=== PATIENT | male | born 1940 | race African-American/Black ===

== ENCOUNTER 2018-05-18 09:15 | Emergency (ER) | payer OTHER, MEDICARE ==
--- NOTE | 2018-05-18 10:46 | CT ---
HEAD CT NONCONTRAST: CLINICAL HISTORY: Post traumatic head injury related to fall with pain. FINDINGS: There is prominence of the ventricular system with moderate periventricular white matter hypoattenuat ion. There is no intracranial hemorrhage, mass effect, or midline shift. The calvarium is intact. There is no fluid level of the imaged paranasal sinuses. IMPRESSION: 1. No acute intracranial hemorrhage or mass effect. 2. There is prominence of the ventricular system with periventricular white matter hypoattenuation. This could relate to entities, such as normal pressure hydrocephalus with transependymal cerebrospin al fluid migration versus microvascular ischemic disease. Recommend clinical correlation in this regard. POS: [facility]
--- NOTE | 2018-05-18 10:49 | CT ---
NONCONTRAST CT CERVICAL SPINE: Date: 05-18-18 History: Mechanical fall in bathroom. Hurts all over. Trauma. Patient hit head on floor. Technique: Contiguous axial CT images are obtained through the cervical spine from the skull base to the T2-3 level. Sagittal and coronal reformatted images are provided. FINDINGS: There is straightening of the normal cervical lordotic curvature which may related to muscle spasm or positioning. Multilevel prominent bridging anterior osteophytes are present throughout the cervical spine. Scattered degenerative changes are also seen within the cervical spine. The vertebral body heights are within normal limits. There is no evidence of a fracture or subluxatio n. The prevertebral soft tissues are within normal limits. Visualized lung apices are clear. Vascular calcifications are seen in the carotid arteries. A 1.1 cm hypodense lesion is seen within the right hepatic lobe. IMPRESSION: 1. Multilevel degenerative changes throughout the cervical spine with prominent bridging anterior ost eophytes noted. There is fusion of the C5 and C6 vertebral bodies. 2. No fracture or subluxation involving the cervical spine. 3. Hypodense nodule right lobe of the thyroid gland which cannot be fully characterized on this exam. Non-emergent thyroid ultrasound is suggested for further evaluation. POS: [facility]
[2018-05-18] MEDS ORDERED: Adacel (T-DAP) 0.5 ML VIAL ONE (10:53)
== END 2018-05-18 11:12 | disposition home or self-care (01) ==
LOC: ERS 09:15
DX: S09.90XA Unspecified injury of head, initial encounter (principal); S90.812A Abrasion, left foot, initial encounter; E11.9 Type 2 diabetes mellitus without complications; I10 Essential (primary) hypertension; G30.9 Alzheimer's disease, unspecified; F02.80 Dementia in other diseases classified elsewhere, unspecified severity, without behavioral disturbance, psychotic disturbance, mood disturbance, and anxiety; Z79.82 Long term (current) use of aspirin; Z79.899 Other long term (current) drug therapy; W19.XXXA Unspecified fall, initial encounter
CPT/HCPCS: 70450; 72125; 90471; 90715

== ENCOUNTER 2018-05-26 10:16 | Inpatient (IN) | payer MEDICARE, OTHER ==
[2018-05-26 10:56] LABS: #Basophils 0.1 thou/uL (0.0-0.2); #Lymphocytes 2.1 thou/uL (1.20-3.40); #Monocytes 1.2 thou/uL (0.11-0.59); #Neutrophils 6.1 thou/uL (1.40-6.50); %Basophils 0.7 % (0.0-1.0); %Eosinophils 0.3 % (0.0-10.0); %Lymphocytes 21.8 % (21.0-51.0); %Monocytes 12.9 % (0.0-10.0); %Neutrophils 64.3 % (42.0-75.0); Hemoglobin 9.1 g/dL (14.0-18.0); Mean Corpuscular HGB CONC 31.8 g/dL (32.0-36.0); Mean Corpuscular Hemoglobin 27.1 pg (27.0-31.0); Mean Corpuscular Volume 85.1 fL (78.0-98.0); Mean Platelet Volume 10.2 fL (7.4-10.4); Platelet Count 124 thou/uL (130-400); RBC Distribution Width 13.5 % (11.5-14.5); Red Blood Cell (RBC) Count 3.37 mill/uL (4.70-6.10); White Blood Cell (WBC) Count 9.4 thou/uL (4.8-10.8)
[2018-05-26 11:17] LABS: ALT (SGPT) 24 U/L (8-55); AST (SGOT) 25 U/L (5-34); Alkaline Phosphatase 55 U/L (40-150); Anion Gap 18 mmol/L (10-20); BUN (Urea Nitrogen) 93 mg/dL (8.4-25.7); Bilirubin, Total 0.6 mg/dL (0.2-1.2); CK (CPK) 399 U/L (30-200); Calc. Creatinine Clearance 0 mL/min (70-130); Calcium 9.5 mg/dL (7.8-10.44); Carbon Dioxide 20 mmol/L (23-31); Chloride 116 mmol/L (98-107); Estimated GFR-MDRD 6; Globulin 4.3 g/dL (2.4-3.5); Glucose 142 mg/dL (83-110); Lipase 27 U/L (8-78); Potassium 4.8 mmol/L (3.5-5.1); Protein, Total 8.3 g/dL (5.8-8.1); Sodium 149 mmol/L (136-145)
[2018-05-26 11:22] LABS: CKMB 2.6 ng/mL (0-6.6); Troponin I 0.037 ng/mL (< 0.028)
--- NOTE | 2018-05-26 11:41 | RAD ---
CHEST 1 VIEW: Date: 05/26/18 HISTORY: Altered mental status. Dyspnea. FINDINGS: Cardiac silhouette and pulmonary vasculature are unremarkable. Mediastinum is midline. No confluent a ir space consolidation or evidence of pneumothorax. Degenerative changes of the shoulders. IMPRESSION: No active cardiopulmonary abnormalities are demonstrated. POS: [facility]
--- NOTE | 2018-05-26 12:30 | CT ---
CT ABDOMEN WITHOUT CONTRAST CT PELVIS WITHOUT CONTRAST: Date: 05/26/18 HISTORY: Elevated creatinine. COMPARISON: None. TECHNIQUE: Abdomen and pelvic CT performed without contrast. Coronal reformatted images are submitted for interp retation. FINDINGS: ABDOMEN CT: Dependent atelectatic changes in the lung bases. Normal heart size. No pericardial effusion. The desc ending thoracic aorta and abdominal aorta have a normal caliber. No periaortic fat stranding. No gastrohepatic, retrocrural, or periportal lymphadenopathy. Unremarkable gallbladder. Limited evaluation of the solid organs by lack of IV contrast. Grossly, no solid organ abnormality. No mesenteric mass, lymphadenopathy, free air, or free fluid. Limited evaluation of the alimentary canal due to lack of oral contrast. Gastric mucosa, duodenum, an d multiple normal caliber small bowel loops are noted bilaterally. Ileocecal junction is normal. Appe ndix is not appreciated. No inflammation of cecal apex. Scattered fecal material in a nondistended, n ondilated colon. There is questionable mucosal thickening involving the distal rectum. There is bilateral severe obstructive uropathy without associated obstructing calculus. Both ureters are prominent throughout their entire course. There is irregular appearance at the base of the urinar y bladder. This irregular attenuation extends to and is difficult to separate from the prostate. Ther e is mucosal thickening at the floor of the urinary bladder, extending into the region of both ureter ovesical junctions. No obstructing calculi. There appear to be enlarged lymph nodes posterior and slightly to the left of the prostate gland. The largest of these presumed lymph nodes measures 1.9 x 1.3 cm. An additional smaller lymph node appear s to be present. There are no lytic or blastic lesions in the osseous structures. There appears to be complete fusion with irregularity involving the T10-T11 disc space. Evaluation is limited on this exam. There is poss ible pathologic lesion at the T11 vertebral body. IMPRESSION: 1. Severe bilateral obstructive uropathy (hydronephrosis and hydroureter). There is abnormal soft ti ssue attenuation of the base of the urinary bladder which may be due to a primary neoplastic process of the bladder. However, the adjacent prostate gland is indistinct. The possibility of an invasive pr ostatic process/malignancy cannot be excluded. There appear to be enlarged left hemipelvic lymph node s. 2. Irregular appearance of the T11 vertebral body. The possibility of a metastatic lesion in this re gion cannot be completely excluded. POS: [facility]
[2018-05-26] MEDS ORDERED: Ondansetron HCl/PF 4 MG/2 ML Vial ONE ×2 (12:48→14:28)
[2018-05-26 13:19] LABS: Bilirubin Negative (Negative); Blood, Urine Trace (Negative); Clarity CLEAR (Clear); Glucose, Urine (Dipstick) Negative (Negative); Leukocyte Small (Negative); Nitrite Positive (Negative); Protein, Urine (Dipstick) 30 mg/dL (Neg-Trace); Specific Gravity, Urine 1.009 (1.002-1.036); Urobilinogen 0.2 mg/dL (0.2-1.0); pH, Urine 6.5 (5.0-9.0)
[2018-05-26 13:20] LABS: INR-International Normal Ratio 1.1; PTT 34.5 SEC (22.9-36.1); Prothrombin Time 14.6 SEC (12.0-14.7)
[2018-05-26 13:24] LABS: Bacteria/HPF 1+ HPF (None Seen); Hyaline Casts/LPF 0-3 HYALINE CAST LPF (0-3 Hyaline); RBC/HPF 0-3 HPF (0-3); Squamous Epithelial 0-3 HPF (0-3)
[2018-05-26] MEDS ORDERED: Succinylcholine Chloride 20 MG/ML 10 ml SYRINGE FS ONE (14:28)
[2018-05-26] MEDS ORDERED: Dexamethasone 20 MG/5 ML VIAL ONE (14:28)
[2018-05-26] MEDS ORDERED: PROPOFOL 200 MG/20 ML VIAL ONE (14:28)
[2018-05-26] MEDS ORDERED: cefTRIAXone\\ROCEPHIN 1 GM in Sodium Chloride 0.9% 100 ML IVPB SCH (15:00)
[2018-05-26] MEDS ORDERED: Iothalamate Meglumine 60% 50 ML VIAL FS ONE (15:06)
[2018-05-26] MEDS ORDERED: Promethazine HCl 25 MG/ML VIAL IM PRN (16:38)
[2018-05-26] MEDS ORDERED: Ondansetron HCl/PF 4 MG/2 ML Vial IVP PRN (16:38)
[2018-05-26] MEDS ORDERED: Promethazine HCl 25 MG/ML VIAL SLOW IVP PRN (16:38)
[2018-05-26] MEDS ORDERED: Promethazine HCl 25 MG/ML VIAL ONE (16:51)
[2018-05-26] MEDS ORDERED: Midazolam HCl 2 mg/2 ml Vial ONE (17:50)
[2018-05-26] MEDS ORDERED: Sodium Bicarbonate 2.5 MEQ/5 ML VIAL ONE (17:50)
[2018-05-26] MEDS ORDERED: Fentanyl 100 MCG/2 ML VIAL ONE (17:51)
--- NOTE | 2018-05-26 18:12 | CON ---
DATE OF CONSULTATION: 05/26/2018 CHIEF COMPLAINT: Nausea, vomiting, weakness. HISTORY OF PRESENT ILLNESS: Mr. Weaver is a 77-year-old gentleman with metastatic prostate cancer. He has known metastatic disease status post diagnosis in 2016. Most recent CT scan demonstrates prog ressive abdominal lymphadenopathy. He presented to the emergency room not feeling well and with naus ea. In the emergency room, he was noted to have a creatinine elevation to 9. CT imaging without con trast demonstrated bilateral hydronephrosis, hydroureter, and pelvic lymphadenopathy. PAST MEDICAL HISTORY: Diabetes, hypertension, history of CVA. PAST SURGICAL HISTORY: Appendectomy. ALLERGIES: LISINOPRIL. CHRONIC MEDICATIONS: Celexa, Aricept, Proscar, Cozaar, Aleve, Zantac, Zocor, Hytrin. FAMILY HISTORY: Significant for diabetes in mother, hypertension in his mother. REVIEW OF SYSTEMS: Respiratory: No shortness of breath. Cardiovascular: Denies chest pain, palpit ations. Gastrointestinal: He has had anorexia along with some nausea and vomiting. Neurologic: Pr ior history of CVA. Urologic: He has urinary incontinence, which has been present for years; interm ittent hematuria associated with his prostate cancer. PHYSICAL EXAMINATION: GENERAL: He is awake and alert. He is in no distress at this time. HEENT: Normocephalic, atraumatic. NECK: Supple without masses. CHEST: Clear to auscultation. ABDOMEN: Soft, nontender. No peritoneal signs. EXTREMITIES: No edema. LABORATORY DATA: Creatinine is 9. CT scan, bilateral hydroureteronephrosis. IMPRESSION: Mr. Reji Weaver is a 77-year-old gentleman with known metastatic prostate cancer, on Lupron. He was diagnosed in 2016. He has had slow progression in his PSA with his most recent PSA b eing 19.6 approximately 3 months ago. Imaging has revealed lymphadenopathy, which has progressed to the point now that he now appears to have bilateral ureteral obstruction. This is associated with ra ther severe renal insufficiency. I have recommended drainage by either ureteral stenting or percutan eous nephrostomy tubes if stenting fails. The procedure, potential limitations, alternatives, and co mplications have been discussed with the patient and his sister. PLAN: 1. Cystoscopy, bilateral ureteral stent placement. 2. Percutaneous nephrostomy tube placement by Radiology will be recommended if ureteral stents canno t be placed.
--- NOTE | 2018-05-26 19:19 | OP ---
PREOPERATIVE DIAGNOSES: Bilateral ureteral obstruction, metastatic prostate cancer. POSTOPERATIVE DIAGNOSES: Bilateral ureteral obstruction, metastatic prostate cancer. PROCEDURE: Cystoscopy, Yoder catheter placement difficult. SURGEON: Julian Felton M.D. ANESTHESIA: General. INDICATIONS: Mr. Reji Weaver is a 77-year-old gentleman with known metastatic prostate cancer. [place] augustin has presented to [facility] with a creatinine of 9 and bilateral hydroureteronephros is. He is being brought to the operating room at this time for attempted ureteral stent placement. DETAILS OF PROCEDURE: The patient was given general anesthesia and IV antibiotics. He was sterilely prepped and draped in lithotomy position. Cystoscope was passed into the bladder. Bladder examined in its entirety. The prostatic urethra and trigone of the bladder were markedly distorted as a resu lt of prostate cancer. After extensive searching for the ureteral orifice, they could not be found. A [place] tip catheter was placed over the guidewire and this is after cystoscopy was completed. Th e catheter irrigated easily and clearly. The patient was transported from the operating room to [facility] very room in stable condition. COMPLICATIONS: None. ESTIMATED BLOOD LOSS: Minimal.
[2018-05-26] MEDS: cefTRIAXone\\ROCEPHIN 1 GM in Sodium Chloride 0.9% 100 ML IVPB SCH (22:40)
--- NOTE | 2018-05-26 22:40 | CT ---
CT GUIDED RIGHT PERCUTANEOUS NEPHROSTOMY TUBE PLACEMENT: 05/26/18 HISTORY: 77-year-old male with bilateral distal ureteral obstruction due to prostate cancer invading the bladd er. TECHNIQUE: Proxy signed informed consent obtained. Patient placed prone on CT table. A total of 2 mg of versed i n multiple doses, and a total of 100 mcg of Fentanyl in multiple doses, were given IV, for patient an xiety and pain, respectively (those are the totals for both the right and left percutaneous nephrosto my procedures). The skin over the right flank was prepared and draped in the usual sterile fashion. 25 gauge needle w as used to apply buffered lidocaine superficially. An Accustick needle was incrementally advanced thr ough the right flank and into the dilated right renal collecting system. Stylet was removed. There wa s return of urine from the stylet. A 0.018 inch guidewire was advanced into the collecting system thr ough the Accustick needle. The Accustick needle was exchanged over the guidewire for a 5 Belgian dilat or. The 0.018 inch guidewire was exchanged for a 0.035 inch super stiff short Amplatz guidewire. The 5 Belgian dilator was exchanged over the Amplatz wire for an 8 Belgian tract dilator. The 8 Fr dilator was exchanged over the Amplatz guidewire for an 8 Belgian percutaneous nephrostomy tube. The stylet wa s removed from the percutaneous nephrostomy tube. The pigtail loop was formed at the dilated renal pe lvis. Contrast was injected to demonstrate intraluminal location. The nephrostomy catheter was suture d in place at the skin. The patient tolerated the procedure well. No complication. The same procedure was then performed for the contralateral left kidney. IMPRESSION: 1. Successful right sided percutaneous nephrostomy tube placement. 2. See separate report for the contralateral left percutaneous nephrostomy tube placement. POS: [facility]
--- NOTE | 2018-05-26 22:56 | CT ---
CT GUIDED LEFT PERCUTANEOUS NEPHROSTOMY TUBE PLACEMENT: 05/26/18 HISTORY: 77-year-old male with bilateral obstructive uropathy due to prostate cancer invading the urinary blad christopher. TECHNIQUE: Signed informed consent obtained. The patient was placed one on CT table. A total of 2 mg of versed given in multiple doses and a total 200 micrograms of Fentanyl given in multiple doses, were injected IV for anxiety and pain control respectively, (that was the total for both the right and left nephro stomy procedures). Left flank was prepared and draped in the usual sterile fashion. A 25 gauge needle was used to apply buffered lidocaine superficially and deeply. A 22 gauge Accustick needle was advan jorge in tandem with the 25 gauge needle, into the left kidney and into the left renal collecting syste m. The stylet was removed, and there was return of urine. A 0.018 inch guide wire was advanced throug h the Accustick needle into the dilated renal pelvis. The Accustick needle was exchanged over the imelda dewire for a 5 Swedish dilator with inner stiffener. The stiffener and 0.018 inch guidewire were remov ed. A 0.035 inch short, super stiff Amplatz guide wire was advanced through the 5 Swedish dilator and into the collecting system and ureter. The 5 Swedish dilator was exchanged over the Amplatz wire for a 8 Swedish tract dilator. The 8 Swedish dilator was then exchanged over the Amplatz wire for an 8 Frenc h percutaneous nephrostomy tube. The stylet of the nephrostomy tube and the Amplatz guidewire were re moved. The pigtail loop of the nephrostomy catheter was formed in the proximal ureter. The nephrostom y tube was sutured in place at the skin. The patient tolerated the procedure. No complications. Dilut e contrast material was injected into the nephrostomy tube, demonstrating intraluminal position of t he catheter and the contrast material, without extravasation. IMPRESSION: 1. Technically success left percutaneous nephrostomy placement. 2. The pigtail loop of the nephrostomy catheter is in the proximal ureter. 3. Recommend left nephrostomy tube adjustment and exchange in the Special Procedures Suite, unde r fluoroscopy, on 05/28/18. 4. See separate report for the also successful contralateral right percutaneous nephrostomy tube placement. POS: [facility]
[2018-05-26] MEDS ORDERED: Sodium Chloride 0.9% 1,000 ML IV SCH (23:00)
--- NOTE | 2018-05-26 23:00 | CON ---
DATE OF CONSULTATION: 05/26/2018 REASON FOR CONSULTATION: Elevated creatinine. HISTORY OF PRESENT ILLNESS: This is a very pleasant 77-year-old gentleman, who presented to the hosp ital with a creatinine of 9.5 and a sodium of 149, so I was consulted for further evaluation and work up. The patient presented to the hospital after the primary care physician noted abnormal labs. The patient was noted to have obstructive uropathy, hence Urology was consulted. PAST MEDICAL HISTORY: BPH, diabetes mellitus, hypertension, CKD, obstructive uropathy, Alzheimer dis ease, appendectomy. SOCIAL HISTORY: No alcohol or drug use. FAMILY HISTORY: Negative for ESRD. ALLERGIES: Reviewed. HOME MEDICATIONS: Reviewed. REVIEW OF SYSTEMS: A 12-point review of systems was performed and was negative except for positives noted above. General: Weakness -. Head: Headache -. Neck: No swelling or lumps. Nose: No epis taxis or discharge. Eyes: No diplopia or pain. Respiratory: Dyspnea -. Cardiovascular: Chest pa in -. Gastrointestinal: Nausea -. /SPECIAL EFFECTS ARTIST: Hematuria -. Musculoskeletal: No joint pain. Neuropsychiatic Systems: No suicidal ideati on. No ideation. Skin: Denies any rash or ulcer. Constitutional: No fever or chills. PHYSICAL EXAMINATION: GENERAL: The patient is awake and alert. VITAL SIGNS: Afebrile, pulse 75, breathing at 16, blood pressure was 150/77. GENERAL APPEARANCE AND MENTAL STATUS: Fair. HEAD/NECK: Normocephalic. Atraumatic. EYES: EOMI. No deformity. EARS: Clear. No ulcers. NOSE: Intact. No lesions. MOUTH: Clear. No discharge. THROAT: Clear. No exudate. LUNGS: Clear. No crackles. CARDIAC: S1, S2. No rub. ABDOMEN: Benign. BS+. GENITALIA/RECTUM: Yoder absent. BACK/EXTREMITIES: Edema 0+ Ulcer- NEUROLOGICAL: Alert and motor intact. SKIN: Rash -. Bruise -. LYMPHATICS: Edema -. Ulcer -. LABORATORY DATA: Creatinine is 9. ASSESSMENT AND RECOMMENDATIONS: 1. Acute kidney injury with chronic kidney disease, most likely due to obstructive uropathy. Contin ue hydration. 2. Hyponatremia. Hydration. 3. Anemia, stable. Medication based on GFR as appropriate. No indication for dialysis. 5. Acidosis. No indication for dialysis at this time. Prognosis is poor.
--- NOTE | 2018-05-27 04:55 | HP ---
CODE STATUS: The patient is a FULL CODE. TIME OF EVALUATION: 10:45 p.m. PRIMARY CARE DOCTOR: The patient is from the [facility]. CHIEF COMPLAINT: Abnormal renal function. HISTORY OF PRESENT ILLNESS: This is 77 years old male patient. The patient has a routine lab work d one at the [facility] and that was done last night and they found that the creatinine was 9.4 and he was franks sferred to the ER the patient has dementia, can answer simple questions, but cannot establish a coherent conversations, so history has been difficult to obtain by using the records, and nursing st aff. The symptoms were reported as severe, a CAT scan was done, the patient had severe hydronephrosi s and was taken to the OR, there was inability to place a stent by Urology and the patient was sent t o IR, who has placed bilateral nephrostomy tubes, they are draining properly, the patient has had sig nificant amount of urine drained after procedure. There is no fever, no nausea, no vomiting. REVIEW OF SYSTEMS: Unable to obtain. The patient is noncooperative, does not establish a coherent c onversation. PAST MEDICAL HISTORY: History of BPH, prostate cancer, diabetes type 2, hypertension, Alzheimer dise ase. PAST SURGICAL HISTORY: Appendectomy. PSYCHIATRIC HISTORY: No previous psychiatric history. SOCIAL HISTORY: No alcohol use. No drug use. No smoking history. Lives at home with family. [facility] has been unable to transfer him to the [facility] facility for Alzheimer's. FAMILY HISTORY: Reviewed and noncontributory for current presentation. ALLERGIES: LISINOPRIL. REPORTED MEDICATIONS: Aspirin, losartan, simvastatin, donepezil, terazosin, finasteride, citalopram, Novolin 70/30, melatonin, ranitidine. PHYSICAL EXAMINATION: VITAL SIGNS: On presentation, blood pressure 150/87 with heart rate 101, respiratory rate was 17, te mperature 97, oxygen saturation 97 on room air. GENERAL APPEARANCE: Patient is alert, disoriented, not in any acute distress. HEENT: Normocephalic, conjunctivae. Moist oral mucosa. Eyes, anicteric. NECK: No JVD. RESPIRATORY: Bilateral air entry. No rales, no wheezing. Symmetric expansion. CARDIOVASCULAR: Normal rate, regular rhythm. No murmurs, no gallop. No edema. ABDOMEN: Soft, normal bowel sounds. MUSCULOSKELETAL: Baseline range of motion and strength. No tenderness. SKIN: Warm and intact. No pallor, no rash. NEUROLOGIC: Baseline sensorium. As per family reported to nursing staff, no evidence of any focal w eakness. Baseline speech. PSYCHIATRIC: Patient admits baseline good mood, disoriented. GENITOURINARY: The patient has bilateral nephrostomy tubes, now working properly and draining signif icant amount of urine. IMAGING STUDIES: 1. EKG was reviewed and the patient has sinus tachycardia at a rate of 101 with NJ 124, QRS 88, QT co rrected 487, possible left atrial enlargement, otherwise no acute findings on the EKG were seen. The patient's abdominal pelvis CT that reported severe bilateral obstructive uropathy, hydronephrosis, a nd hydroureter. There is abnormal soft tissue attenuation of the base of the urinary bladder, which may be due to a primary neoplastic process of the bladder; however, the adjacent prostate gland is in distinct, the possibility of an invasive prostatic process, malignancy cannot be excluded. There marlee eared to be large left hemipelvic lymph nodes. 2. Irregular appearance of the T11 vertebral body. The possibility of metastatic lesion in this reg ion cannot be completely excluded. A chest x-ray on this patient showed no active cardiopulmonary ab normalities. LABORATORY DATA: The labs were reviewed. The patient had white count 9.4, hemoglobin 9.1, MCV 85, p latelet count 124. Coagulation was normal. Sodium 149, potassium 4.8, chloride 116, carbon dioxide 20, anion gap 19, BUN 93, creatinine 9.5. Glucose 142, the repeat one was 83. CK 399. Troponin 0.0 37. Beta natriuretic peptide is 20.9. Serum total protein was 8.3, albumin was 4, globulin 4.3. UA was done. White count 4-6. ASSESSMENT AND PLAN: The patient was placed in the hospital with following medical problems: 1. Bilateral ureteronephrosis, secondary to obstruction due to prostate cancer, the patient is statu s post nephrostomy tube IR, tolerated the procedure well, patient is draining enough amount of urine bilaterally. We will follow recommendation from the Urology. 2. Acute kidney injury, there is and Dr. Foley has been consulted, plan to give IV fluids. Now , the patient can drain urine. 3. Urinary tract infection. The patient is on Rocephin, follow up cultures, we will adjust treatmen t as needed. 4. Underlying dementia, we will reconcile home medications. 5. Prostate cancer, the patient will need to follow up with Oncology for further management. 6. History of hypertension, is uncontrolled, chronic, reconcile home medications. We will hold on l osartan for now given acute kidney injury. IV p.r.n. medications as needed for edema control. 7. Hematuria. The patient has a drop in hemoglobin from 12 to 9. We will monitor hemoglobin, we wi ll transfuse if needed. 8. Hypernatremia. Sodium 149, the patient receiving fluids, we will monitor, Dr. Foley also on the c ase, we will follow recommendation. 9. Metabolic acidosis negative in light of acute kidney injury, treating the underlying problem, we will monitor. 10. Mildly elevated troponin 0.037. This is likely secondary to [id number] myocardial infarct ion type 2, we will trend troponins, we will treat accordingly. 11. Deep venous thrombosis prophylaxis, sequential compression devices.
[2018-05-27 05:33] LABS: #Lymphocytes 1.5 thou/uL (1.20-3.40); #Monocytes 0.8 thou/uL (0.11-0.59); #Neutrophils 8.2 thou/uL (1.40-6.50); %Basophils 0.2 % (0.0-1.0); %Monocytes 7.6 % (0.0-10.0); %Neutrophils 78.1 % (42.0-75.0); Hemoglobin 8.8 g/dL (14.0-18.0); Mean Corpuscular HGB CONC 33.1 g/dL (32.0-36.0); Mean Corpuscular Hemoglobin 27.8 pg (27.0-31.0); Mean Corpuscular Volume 84.2 fL (78.0-98.0); Mean Platelet Volume 9.7 fL (7.4-10.4); Platelet Count 129 thou/uL (130-400); RBC Distribution Width 13.8 % (11.5-14.5); Red Blood Cell (RBC) Count 3.16 mill/uL (4.70-6.10); White Blood Cell (WBC) Count 10.4 thou/uL (4.8-10.8)
[2018-05-27 06:00] LABS: ALT (SGPT) 22 U/L (8-55); AST (SGOT) 29 U/L (5-34); Albumin 3.6 g/dL (3.4-4.8); Alkaline Phosphatase 50 U/L (40-150); Anion Gap 20 mmol/L (10-20); BUN (Urea Nitrogen) 97 mg/dL (8.4-25.7); Bilirubin, Total 0.4 mg/dL (0.2-1.2); Calc. Creatinine Clearance 9 mL/min (70-130); Calcium 9.7 mg/dL (7.8-10.44); Carbon Dioxide 18 mmol/L (23-31); Chloride 120 mmol/L (98-107); Estimated GFR-MDRD 7; Globulin 4.8 g/dL (2.4-3.5); Glucose 150 mg/dL (83-110); Magnesium 2.6 mg/dL (1.6-2.6); Potassium 6.2 mmol/L (3.5-5.1); Protein, Total 8.4 g/dL (5.8-8.1); Sodium 152 mmol/L (136-145)
[2018-05-27] MEDS ORDERED: Dextrose 50% Abboject 50 ML SYRINGE SLOW IVP SCH (08:30)
[2018-05-27] MEDS ORDERED: Insulin Regular 300 UNITS/3 ML VIAL SC SCH (08:30)
[2018-05-27] MEDS ORDERED: Losartan 25 MG TAB PO SCH (09:00)
[2018-05-27] MEDS ORDERED: Calcium Chloride 13.6 MEQ in Sodium Chloride 0.9% 100 ML IVPB SCH (09:00)
[2018-05-27] MEDS: Dextrose 5% in Water 1,000 ML IV SCH ×2 (09:13→14:51)
[2018-05-27] MEDS: Famotidine 20 MG TAB PO SCH (09:18)
[2018-05-27] MEDS: Donepezil HCl 10 MG TAB PO SCH (09:18)
[2018-05-27] MEDS: Finasteride 5 MG TAB PO SCH (09:18)
[2018-05-27] MEDS: Citalopram 20 MG TAB PO SCH (09:18)
[2018-05-27] MEDS ORDERED: Sodium Bicarb 50 MEQ/50 ML Abboject 8.4% SYRINGE IVP SCH (10:45)
[2018-05-27] MEDS ORDERED: Dextrose 5% in Water 1,000 ML IV SCH (10:45)
--- NOTE | 2018-05-27 11:02 | PRG ---
DATE OF SERVICE: 05/27/2018 SUBJECTIVE: This is a 77-year-old gentleman, being seen for acute kidney injury. The patient denies any nausea, vomiting, or chest pain. OBJECTIVE: See above. GENERAL: Patient is awake and alert. VITAL SIGNS: Afebrile, pulse 101, breathing at 16, blood pressure 100/73. GENERAL APPEARANCE AND MENTAL STATUS: Fair. HEAD/NECK: Normocephalic. Atraumatic. EYES: EOMI. No deformity. EARS: Clear. No ulcers. NOSE: Intact. No lesions. MOUTH: Clear. No discharge. THROAT: Clear. No exudate. LUNGS: Clear. No crackles. CARDIAC: S1, S2. No rub. ABDOMEN: Benign. BS+. GENITALIA/RECTUM: Yoder absent. BACK/EXTREMITIES: Edema 0+, ulcer. NEUROLOGICAL: Alert and motor intact. SKIN: Rash - bruise. LYMPHATICS: Edema - ulcer. LABORATORY DATA: Labs show hemoglobin 8.8, potassium is 6.2, bicarbonate 18, creatinine 9.1. ASSESSMENT AND RECOMMENDATIONS: 1. Acute kidney injury, nonoliguric. Continue hydration. 2. Hypernatremia. Increase IV fluids to 250 mL per hour. 3. Hyperkalemia. We will give Kayexalate. Recheck potassium. If elevated, we will start dialysis. 4. Metabolic acidosis. Start sodium bicarbonate. Once again, we will plan dialysis if his potassium does not improve. Overall, prognosis remains extr alvarado poor.
[2018-05-27 11:31] LABS: Hemoglobin 8.6 g/dL (14.0-18.0)
[2018-05-27 11:43] LABS: Potassium 5.1 mmol/L (3.5-5.1)
[2018-05-27 11:55] LABS: Anion Gap 21 mmol/L (10-20); BUN (Urea Nitrogen) 90 mg/dL (8.4-25.7); Calc. Creatinine Clearance 9 mL/min (70-130); Calcium 10.6 mg/dL (7.8-10.44); Carbon Dioxide 17 mmol/L (23-31); Chloride 121 mmol/L (98-107); Estimated GFR-MDRD 7; Glucose 173 mg/dL (83-110); Sodium 154 mmol/L (136-145)
--- NOTE | 2018-05-27 12:55 | PRG ---
DATE OF SERVICE: 05/27/2018 SUBJECTIVE: The patient denies any complaints. He is not having any pain. OBJECTIVE: VITAL SIGNS: Temperature 98.4, pulse 101, blood pressure 150/85. CHEST: Clear to auscultation. CARDIOVASCULAR: No murmurs. ABDOMEN: Soft, nontender. Yoder catheter in place. Right and left nephrostomy tubes in place. Blo isra urine draining from all sites. LABORATORY DATA: Hemoglobin 8.8, hematocrit 26.6, creatinine 9.0. Also, ins and outs, left nephrost riki 125 mL, right nephrostomy 2150 mL, Yoder catheter 300 mL. Hand irrigation of Yoder catheter performed. Irrigation of right nephrostomy performed. ASSESSMENT: Gross hematuria coming from the Yoder catheter as a result of his prostate cancer. I do not believe the majority of this blood is coming from the upper urinary tract. The catheter was segundo d-irrigated and there were some clots, but the degree of hematuria seems severe, because there is no dilution of this urine. The right nephrostomy tube is draining well. The left nephrostomy tube is d raining less, may need to be repositioned. His creatinine has not changed significantly since admiss ion, but electrolytes are, otherwise, normal. RECOMMENDATIONS: Reposition left nephrostomy if drainage is not improved.
--- NOTE | 2018-05-27 13:14 | PDOC.PN ---
- Subjective Encounter Start Date: 05/27/18 Encounter Start Time: 13:13 Subjective: care discussed w sister(AMINA) at bedside. -: Pt has dementia and even though awake,can't focus -: RN reports less draiange from L tube & continued hematuria - Objective Resuscitation Status: Resuscitation Status FULL:Full Resuscitation MAR Reviewed: Yes Vital Signs & Weight: Vital Signs (12 hours) Temp Pulse Resp BP Pulse Ox 05/27/18 11:11 98.4 F 101 H 18 150/85 H 94 L 05/27/18 07:40 98.1 F 101 H 20 160/82 H 99 05/27/18 04:22 98.8 F 104 H 18 125/73 97 Weight Weight 205 lb 7 oz I&O: 05/26/18 05/27/18 05/28/18 06:59 06:59 06:59 Intake Total 1300 Output Total 2575 Balance -1275 Result Diagrams: 05/27/18 11:20 05/27/18 11:20 Additional Labs: Accuchecks 05/27/18 05/26/18 05:59 15:27 POC Glucose 136 H 83 Microbiology 05/26/18 12:49 Urine clean catch Urine Culture - Preliminary NO GROWTH AT 24 HOURS Laboratory Tests 06/21/16 05/26/18 05/26/18 11:51 10:40 10:40 Hgb 12.6 L 9.1 L Potassium 4.8 Creatinine 9.58 H Prostate Specific Ag 05/26/18 05/27/18 05/27/18 10:40 05:08 05:08 Hgb 8.8 L Potassium 6.2 H Creatinine 9.13 H Prostate Specific Ag 84.56 H 05/27/18 05/27/18 05/27/18 11:20 11:20 11:20 Hgb 8.6 L Potassium 5.0 5.1 Creatinine 9.02 H Prostate Specific Ag labs reviewed Phys Exam - Physical Examination Constitutional: NAD HEENT: PERRLA, moist MMs, sclera anicteric, oral pharynx no lesions Neck: no nodes, no JVD, supple, full ROM Respiratory: no wheezing, no rales, no rhonchi, clear to auscultation bilateral Cardiovascular: RRR, no significant murmur, no rub Gastrointestinal: soft, non-tender, no distention, positive bowel sounds Musculoskeletal: no edema, pulses present Neurological: non-focal, normal sensation, moves all 4 limbs Psychiatric: normal affect Dx/Plan (1) LISA (acute kidney injury) Code(s): N17.9 - ACUTE KIDNEY FAILURE, UNSPECIFIED Status: Acute (2) Hyperkalemia Code(s): E87.5 - HYPERKALEMIA Status: Acute (3) Acute blood loss anemia Code(s): D62 - ACUTE POSTHEMORRHAGIC ANEMIA Status: Acute (4) UTI (urinary tract infection) Status: Acute (5) Benign hematuria Code(s): N02.9 - RECURRENT AND PERST HEMATURIA W UNSP MORPHOLOGIC CHANGES Status: Acute (6) Bilateral hydronephrosis Code(s): N13.30 - UNSPECIFIED HYDRONEPHROSIS Status: Acute Comment: s/p B/L Nephrostomy tube placement (7) Alzheimer's dementia Code(s): G30.9 - ALZHEIMER'S DISEASE, UNSPECIFIED; F02.80 - DEMENTIA IN OTH DISEASES CLASSD ELSWHR W/O BEHAVRL DISTURB Status: Chronic (8) Prostate cancer Code(s): C61 - MALIGNANT NEOPLASM OF PROSTATE Status: Chronic - Plan plan discussed w/ family, continue antibiotics, out of bed/ambulate, DVT proph w /SCDs Calcium & Insulin+dextrose given for high K w repeat K better -: renal Fx remain unchanged. may need HD -: cont ABx. cont H/h monitoring -: record reviewed from [facility] from 02/2018 .CT showed B/L hydrnephrosis then -: follows w Dr. Devorah montez at Oncology clinic at [facility] * .repeat BMP in afternoon. * Raman advanced prostate CA * cont monitoring urine output in fraire & tubes * HD stable * poor prognosis * Review of Systems - Review of Systems Constitutional: negative: fever, chills, sweats, weakness, malaise, other Other: can not relaibly obtained due to dementia - Medications/Allergies Allergies/Adverse Reactions: Allergies Allergy/AdvReac Type Severity Reaction Status Date / Time lisinopril Allergy Verified 05/26/18 22:04 Medications: Current Medications Acetaminophen (Tylenol) 650 mg PO Q4H PRN PRN Reason: Headache/Fever or Pain Atorvastatin Calcium (Lipitor) 40 mg PO QPM [facility] Citalopram Hydrobromide (Celexa) 40 mg PO DAILY [facility] Last Admin: 05/27/18 09:18 Dose: 40 mg Donepezil HCl (Aricept) 10 mg PO DAILY [facility] Last Admin: 05/27/18 09:18 Dose: 10 mg Famotidine (Pepcid) 20 mg PO DAILY [facility] Last Admin: 05/27/18 09:18 Dose: 20 mg Finasteride (Proscar) 5 mg PO DAILY [facility] Last Admin: 05/27/18 09:18 Dose: 5 mg Ceftriaxone Sodium 1 gm/ (Sodium Chloride) 100 mls @ 200 mls/hr IVPB 2200 [facility] Last Admin: 05/26/18 22:40 Dose: 100 mls Dextrose/Water (D5w) 1,000 mls @ 125 mls/hr IV .Q8H [facility] Last Admin: 05/27/18 09:13 Dose: 1,000 mls Dextrose/Water (D5w) 1,000 mls @ 250 mls/hr IV .Q4H [facility] Stop: 05/27/18 14:44 Last Admin: 05/27/18 11:26 Dose: Not Given Melatonin (Melatonin) 3 mg PO HS [facility] Sodium Chloride (Flush - Normal Saline) 10 ml IVF Q12HR [facility] Sodium Chloride (Flush - Normal Saline) 10 ml IVF PRN PRN PRN Reason: Saline Flush
[2018-05-27 16:24] LABS: Anion Gap 20 mmol/L (10-20); BUN (Urea Nitrogen) 87 mg/dL (8.4-25.7); Calc. Creatinine Clearance 9 mL/min (70-130); Calcium 9.9 mg/dL (7.8-10.44); Carbon Dioxide 19 mmol/L (23-31); Chloride 119 mmol/L (98-107); Estimated GFR-MDRD 7; Glucose 164 mg/dL (83-110); Potassium 4.9 mmol/L (3.5-5.1); Sodium 153 mmol/L (136-145)
--- NOTE | 2018-05-27 20:18 | PDOC.EVN ---
Event Note - Event Note Event Note: Care discussed at bedside with Pt;s sister in detail. she is also his MPOA and pt lives with her. Pt himself has advanced Dementia and did not participate in conversation much. Sister reports that she is Ware Cleaner for pt as well. lately she has been having difficult time taking care of him making his placement in a facilty for 1 month so she can take a break. I discussed the current acutiy of disease as well as chrnic underlying condition worsening. I relayed that he most likley will need hemodialysis if his kidney function does not improve.relayed that it would require placement of a Central Line and she understands what that means.She is also made awake that HD might become a necessity even after discharge. She Understands that we are treating im for LISA,Hydronephrosis and UTI.His prognosis was relayed to her that he is not the best candidate for aggressive approach given advanced dementia and unknown status of his prostate CA. She told me that they were told that his Prostate Cancer is under control and this is all a surprise for her that he presented with severe urinary obstruction with Renal failure and obstruction on both sides. I reviewed his CT scan ordered by his oncologist Dr. Devorah montez in 03/10 which showed B/L Hydronephrosis at that time. Pt's sister was not aware of this and the reason why no intervention was done at that time immediately. Discussed prognosis,expected disease trajectory and acuity with MPOA.She understood that he is not doing well but wants him to be Full code and wants us to start HD if needed as soosn as possible. Will enter order for code status and consult Palliative care team to follow along fo rfamily support and Goals of Care moving forward. Total Time spent in ACP discussion 25 minutes.
[2018-05-27] MEDS: cefTRIAXone\\ROCEPHIN 1 GM in Sodium Chloride 0.9% 100 ML IVPB SCH (21:50)
[2018-05-27] MEDS: Atorvastatin Calcium 40 MG TAB PO SCH (21:50)
[2018-05-27] MEDS: Melatonin 3 MG TAB PO SCH (21:50)
[2018-05-27] MEDS: Acetaminophen 325 MG TAB PO PRN (21:50)
[2018-05-28 00:08] LABS: Hemoglobin 8.6 g/dL (14.0-18.0)
[2018-05-28] MEDS: Dextrose 5% in Water 1,000 ML IV SCH ×3 (02:31→18:00)
[2018-05-28 06:02] LABS: Hemoglobin 8.7 g/dL (14.0-18.0)
[2018-05-28] MEDS: Famotidine 20 MG TAB PO SCH (09:50)
[2018-05-28] MEDS: Citalopram 20 MG TAB PO SCH (09:50)
[2018-05-28] MEDS: Finasteride 5 MG TAB PO SCH (09:51)
[2018-05-28] MEDS: Donepezil HCl 10 MG TAB PO SCH (09:51)
--- NOTE | 2018-05-28 11:24 | PRG ---
DATE OF SERVICE: 05/28/2018 CHIEF COMPLAINT: No complaints. OBJECTIVE: VITAL SIGNS: Temperature 97.9, pulse 101, respirations 16, blood pressure 116/79. Urinary output, l eft nephrostomy 150 mL, Yoder catheter 225 mL, right nephrostomy tube 2000 mL. CHEST: Clear. CARDIOVASCULAR: No murmurs. ABDOMEN: Soft, nontender. GENITOURINARY: Yoder catheter, hand-irrigated. No clots obtained. Hematuria is still present, but improved. LABORATORY DATA: Hemoglobin 8.7. Creatinine 8.8. IMPRESSION: Mr. Weaver is status post bilateral percutaneous nephrostomy tube placement, but there h as been a little change in his renal function. This is most likely partially a result of the fact th at the left-sided nephrostomy tube does not seem to be draining well. I spoke with Interventional [facility] and they are arranging tube manipulation and repositioning tomorrow, 05/29/2018. His Yoder c atheter is patent and the right nephrostomy tube is draining well.
[2018-05-28] MEDS ORDERED: HumaLOG 300 UNITS/3 ML VIAL SC PRN (11:25)
[2018-05-28] MEDS ORDERED: Dextrose 50% Abboject 50 ML SYRINGE SLOW IVP PRN (11:25)
[2018-05-28] MEDS ORDERED: Dextrose 5% in Water 1,000 ML IV PRN (11:25)
--- NOTE | 2018-05-28 11:35 | PRG ---
DATE OF SERVICE: 05/28/2018 SUBJECTIVE: A 77-year-old male being seen for acute kidney injury. The patient denies any nausea, v omiting, or chest pain. PHYSICAL EXAMINATION: GENERAL: Patient is awake, alert. VITAL SIGNS: Afebrile, pulse 101, breathing 16, blood pressure 161/71. HEAD/NECK: Normocephalic. Atraumatic. EYES: EOMI. No deformity. EARS: Clear. No ulcers. NOSE: Intact. No lesions. MOUTH: Clear. No discharge. THROAT: Clear. No exudate. LUNGS: Clear. No crackles. CARDIAC: S1, S2. No rub. ABDOMEN: Benign. BS+. GENITALIA/RECTUM: Yoder absent. BACK/EXTREMITIES: Edema 0+ Ulcer- NEUROLOGICAL: Alert and motor intact. SKIN: Rash- Bruise- LYMPHATICS: Edema- Ulcer- LABORATORY DATA: Show hemoglobin 8.7 and potassium is pending. ASSESSMENT AND PLAN: 1. Stage 5 chronic kidney disease with acute kidney injury due to hydronephrosis. 2. Anemia, stable. 3. Hyperkalemia. Recheck potassium. 4. Metabolic acidosis, improved. We will follow labs closely. No urgent indication for dialysis. Prognosis is very poor.
[2018-05-28 13:07] LABS: Hemoglobin 9.6 g/dL (14.0-18.0)
[2018-05-28 13:12] LABS: Anion Gap 21 mmol/L (10-20); BUN (Urea Nitrogen) 69 mg/dL (8.4-25.7); Calc. Creatinine Clearance 11 mL/min (70-130); Calcium 9.7 mg/dL (7.8-10.44); Carbon Dioxide 19 mmol/L (23-31); Chloride 114 mmol/L (98-107); Estimated GFR-MDRD 9; Glucose 200 mg/dL (83-110); Potassium 3.9 mmol/L (3.5-5.1); Sodium 150 mmol/L (136-145)
--- NOTE | 2018-05-28 13:55 | PDOC.PN ---
- Subjective Encounter Start Date: 05/28/18 Encounter Start Time: 13:53 Subjective: feels better. denies any pain or fever/chills -: sister at bedside.care discussed. - Objective Resuscitation Status: Resuscitation Status FULL:Full Resuscitation MAR Reviewed: Yes Vital Signs & Weight: Vital Signs (12 hours) Temp Pulse Resp BP BP Pulse Ox 05/28/18 11:23 97.9 F 97 18 117/78 97 05/28/18 08:15 97.9 F 97 18 05/28/18 07:41 97.9 F 101 H 16 116/79 100 05/28/18 06:00 98.4 F 97 16 142/80 H 98 Weight Weight 205 lb 7 oz I&O: 05/27/18 05/28/18 05/29/18 06:59 06:59 06:59 Intake Total 1300 1540 Output Total [address] [facility] -1275 -2375 -885 Result Diagrams: 05/28/18 12:35 05/28/18 12:35 Additional Labs: Accuchecks 05/28/18 10:47 POC Glucose 216 H Microbiology 05/26/18 12:49 Urine clean catch Urine Culture - Final labs reviewed Phys Exam - Physical Examination Constitutional: NAD HEENT: PERRLA, moist MMs, sclera anicteric, oral pharynx no lesions Neck: no nodes, no JVD, supple, full ROM Respiratory: no wheezing, no rales, no rhonchi, clear to auscultation bilateral Cardiovascular: RRR, no significant murmur, no rub, gallop Gastrointestinal: soft, non-tender, no distention, positive bowel sounds Musculoskeletal: no edema, pulses present b/l nephrostomy tubes present Neurological: non-focal, normal sensation, moves all 4 limbs Dx/Plan (1) LISA (acute kidney injury) Code(s): N17.9 - ACUTE KIDNEY FAILURE, UNSPECIFIED Status: Acute (2) Bilateral hydronephrosis Code(s): N13.30 - UNSPECIFIED HYDRONEPHROSIS Status: Acute Comment: s/p B/L Nephrostomy tube placement (3) Acute blood loss anemia Code(s): D62 - ACUTE POSTHEMORRHAGIC ANEMIA Status: Acute Comment: H/H stable. Due to Hematuria which has stopped (4) Hyperkalemia Code(s): E87.5 - HYPERKALEMIA Status: Acute Comment: improved .Monitor (5) High anion gap metabolic acidosis Code(s): E87.2 - ACIDOSIS Status: Acute (6) UTI (urinary tract infection) Status: Acute (7) Benign hematuria Code(s): N02.9 - RECURRENT AND PERST HEMATURIA W UNSP MORPHOLOGIC CHANGES Status: Acute Comment: S/P irrigation by Urology.improved (8) Alzheimer's dementia Code(s): G30.9 - ALZHEIMER'S DISEASE, UNSPECIFIED; F02.80 - DEMENTIA IN OTH DISEASES CLASSD ELSWHR W/O BEHAVRL DISTURB Status: Chronic (9) Prostate cancer Code(s): C61 - MALIGNANT NEOPLASM OF PROSTATE Status: Chronic - Plan plan discussed w/ family, continue antibiotics, PT/OT, social studies teacher, out of bed/ambulate, DVT proph w/SCDs S/P bladder irrigation by Dr. cartagena.Case discussed -: Poor Output from Left Npehrostomy-will go to IR tomorrow for adjustment -: Follow renal FX. May improve w improved L kidney draiange -: Nephrology following. will hold off on dialysis for now. -: cont empiric Ab xfor now even though urine Cx negative * .PSA has worsened.family(MPOA) wants aggressive care. * am labs. * HD stable * start diabetic diet. * add ISS and accuchecks Review of Systems - Review of Systems Constitutional: negative: fever, chills, sweats, weakness, malaise, other ENT: negative: Ear Pain, Ear Discharge, Nose Pain, Nose Discharge, Nose Congestion, Mouth Pain, Mouth Swelling, Throat Pain, Throat Swelling, Other Respiratory: negative: Cough, Dry, Shortness of Breath, Hemoptysis, SOB with Excertion, Pleuritic Pain, Sputum, Wheezing Cardiovascular: negative: chest pain, palpitations, orthopnea, paroxysmal nocturnal dyspnea, edema, light headedness, other Gastrointestinal: negative: Nausea, Vomiting, Abdominal Pain, Diarrhea, Constipation, Melena, Hematochezia, Other Genitourinary: negative: Dysuria, Frequency, Incontinence, Hematuria, Retention , Other Musculoskeletal: negative: Neck Pain, Shoulder Pain, Arm Pain, Back Pain, Hand Pain, Leg Pain, Foot Pain, Other Neurological: negative: Weakness, Numbness, Incoordination, Change in Speech, Confusion, Seizures, Other Other: can not be reilably obtained due to dementia - Medications/Allergies Allergies/Adverse Reactions: Allergies Allergy/AdvReac Type Severity Reaction Status Date / Time lisinopril Allergy Verified 05/26/18 22:04 Medications: Current Medications Acetaminophen (Tylenol) 650 mg PO Q4H PRN PRN Reason: Headache/Fever or Pain Last Admin: 05/27/18 21:50 Dose: 650 mg Atorvastatin Calcium (Lipitor) 40 mg PO QPM [facility] Last Admin: 05/27/18 21:50 Dose: 40 mg Citalopram Hydrobromide (Celexa) 40 mg PO DAILY [facility] Last Admin: 05/28/18 09:50 Dose: 40 mg Dextrose/Water (Dextrose 50%) 25 gm SLOW IVP PRN PRN PRN Reason: Hypoglycemia Donepezil HCl (Aricept) 10 mg PO DAILY [facility] Last Admin: 05/28/18 09:51 Dose: 10 mg Famotidine (Pepcid) 20 mg PO DAILY [facility] Last Admin: 05/28/18 09:50 Dose: 20 mg Finasteride (Proscar) 5 mg PO DAILY [facility] Last Admin: 05/28/18 09:51 Dose: 5 mg Glucagon (Glucagon) 1 mg IM PRN PRN PRN Reason: Hypoglycemia Ceftriaxone Sodium 1 gm/ (Sodium Chloride) 100 mls @ 200 mls/hr IVPB 2200 [facility] Last Admin: 05/27/18 21:50 Dose: 100 mls Dextrose/Water (D5w) 1,000 mls @ 125 mls/hr IV .Q8H [facility] Last Admin: 05/28/18 08:04 Dose: 1,000 mls Dextrose/Water (D5w) 1,000 mls @ 0 mls/hr IV .Q0M PRN; As Directed PRN Reason: Hypoglycemia Insulin Human Lispro (Humalog) 0 units SC .MODERATE SLIDING SC PRN PRN Reason: Moderate Correctional Scale Insulin Human Lispro (Humalog) 0 units SC .BEDTIME SLIDING SC PRN PRN Reason: Bedtime Correctional Scale Melatonin (Melatonin) 3 mg PO HS [facility] Last Admin: 05/27/18 21:50 Dose: 3 mg Sodium Chloride (Flush - Normal Saline) 10 ml IVF Q12HR [facility] Last Admin: 05/28/18 09:51 Dose: Not Given Sodium Chloride (Flush - Normal Saline) 10 ml IVF PRN PRN PRN Reason: Saline Flush
[2018-05-28] MEDS: HumaLOG 300 UNITS/3 ML VIAL SC PRN (18:22)
[2018-05-28] MEDS: Atorvastatin Calcium 40 MG TAB PO SCH (21:15)
[2018-05-28] MEDS: Melatonin 3 MG TAB PO SCH (21:15)
[2018-05-28] MEDS: cefTRIAXone\\ROCEPHIN 1 GM in Sodium Chloride 0.9% 100 ML IVPB SCH (21:27)
[2018-05-29] MEDS: Dextrose 5% in Water 1,000 ML IV SCH ×3 (02:21→18:47)
[2018-05-29] MEDS: Acetaminophen 325 MG TAB PO PRN ×2 (03:11→15:29)
[2018-05-29 05:59] LABS: Anion Gap 20 mmol/L (10-20); BUN (Urea Nitrogen) 63 mg/dL (8.4-25.7); Calc. Creatinine Clearance 12 mL/min (70-130); Calcium 8.6 mg/dL (7.8-10.44); Carbon Dioxide 19 mmol/L (23-31); Chloride 106 mmol/L (98-107); Estimated GFR-MDRD 10; Glucose 178 mg/dL (83-110); Potassium 3.6 mmol/L (3.5-5.1); Sodium 141 mmol/L (136-145)
[2018-05-29 06:09] LABS: Band 9 % (5-11); Hemoglobin 7.6 g/dL (14.0-18.0); Lymphocytes 26 % (21-51); MDiff Complete? YES; Mean Corpuscular HGB CONC 32.3 g/dL (32.0-36.0); Mean Corpuscular Hemoglobin 27.4 pg (27.0-31.0); Mean Corpuscular Volume 84.9 fL (78.0-98.0); Mean Platelet Volume 10.1 fL (7.4-10.4); Monocytes 14 % (0-10); Neutrophil 51 % (42-75); PLT Morphology Comment Appears Decreased; Platelet Count 107 thou/uL (130-400); RBC Distribution Width 13.5 % (11.5-14.5); Red Blood Cell (RBC) Count 2.77 mill/uL (4.70-6.10)
[2018-05-29] MEDS: Famotidine 20 MG TAB PO SCH (09:45)
[2018-05-29] MEDS: Finasteride 5 MG TAB PO SCH (09:45)
[2018-05-29] MEDS: Donepezil HCl 10 MG TAB PO SCH (09:45)
[2018-05-29] MEDS: Citalopram 20 MG TAB PO SCH (09:45)
--- NOTE | 2018-05-29 12:12 | SPC ---
LEFT NEPHROSTOGRAM AND REPOSITIONING OF LEFT NEPHROSTOMY TUBE: Date: 05-29-18 History: Left percutaneous nephrostomy tube placed three days ago. There is decreased urine output on the left compared to the right. Evaluation of the left nephrostomy tube with repositioning or replac ement was requested. Fluoroscopy: Total fluoroscopy time 1.2 minutes with total dose of 12,457 mGy*cm^2. Technique: After informed consent obtained, the patient was placed on the angiography table in the prone positio n. A sterile contrast filled syringe was connected to the left sided nephrostomy tube and nephrostogr am was performed. Left nephrostomy tube was noted to be in an inferior pole left renal vanna as oppos ed to being in the renal pelvis, which was noted on initial positioning. As a result, a .035 inch Brenton son guidewire was placed into the tube to the level of the cope loop portion of tube. The suture was cut and the tube was rotated with the cope loop portion of the tube repositioned into the left renal pelvis as opposed to in the vanna. Contrast injection confirms placement. The catheter was flushed an d again placed to gravity drainage. Catheter was sutured in place using 2-0 ethilon suture material, after the skin was infiltrated with buffered 1% Lidocaine for local anesthesia. The patient tolerated the procedure well without immediate complication. Dry sterile dressing was mahesh jorge. IMPRESSION: Technically successful repositioning of left nephrostomy tube with nephrostogram demonstrating the di stal portion of the tube within the renal pelvis. POS: CHELLY
[2018-05-29] MEDS ORDERED: Iopamidol 300 61% 50 ML VIAL FS ONE (13:05)
--- NOTE | 2018-05-29 16:32 | PRG ---
DATE OF SERVICE: 05/29/2018 SUBJECTIVE: Patient was seen and examined at bedside and overnight events noted. Patient denies any shortness of breath or chest pain or palpitation. No history of nausea or vomiting or diarrhea or f ever or chills or cramps. OBJECTIVE: GENERAL: This is a well-built male in no apparent distress. VITAL SIGNS: Temperature 98.4, pulse 97, respirations 16, blood pressure 133/80. HEENT: Atraumatic, normocephalic. Oral mucosa is moist. NECK: Supple. CARDIOVASCULAR: S1, S2 heard. Rate and rhythm regular. RESPIRATORY: Clear to auscultation. GASTROINTESTINAL: Abdomen is soft. MUSCULOSKELETAL: No tenderness. No edema. DERMATOLOGIC: No skin rash. NEUROLOGIC: Alert and awake and oriented x3. No focal neurologic deficits. Moving all the extremiti es. PSYCHIATRIC: Mood and affect normal. LABORATORY DATA: Potassium 3.6, BUN 63, creatinine 6.7. ASSESSMENT AND PLAN: 1. Acute kidney injury on chronic kidney disease stage 3. Renal function is improving, most likely from obstruction. 2. Urinary obstruction. Follow with Urology. 3. Anemia. 4. Hyperkalemia. 5. Metabolic acidosis, improved. Overall, renal function is getting better. We will avoid nephrotoxins. We will monitor and hydrate as tolerated.
--- NOTE | 2018-05-29 18:02 | PDOC.PN ---
- Subjective Encounter Start Date: 05/29/18 Encounter Start Time: 08:00 Pt seen for followup re: acute renal failure. Denies chest pain, shortness of breath, fevers or chills. - Objective Resuscitation Status: Resuscitation Status FULL:Full Resuscitation MAR Reviewed: Yes Vital Signs & Weight: Vital Signs (12 hours) Temp Pulse Resp BP Pulse Ox 05/29/18 16:30 98.7 F 99 22 H 132/79 99 05/29/18 11:20 98.4 F 97 16 133/80 100 05/29/18 07:50 98.4 F 96 20 05/29/18 07:30 98.4 F 96 20 142/73 H 97 Weight Weight 205 lb 7 oz I&O: 05/28/18 05/29/18 05/30/18 06:59 06:59 06:59 Intake Total 4920 Output Total 2375 5050 Balance -2375 -130 Result Diagrams: 05/29/18 05:15 05/29/18 05:15 Additional Labs: Accuchecks 05/29/18 05/29/18 05/29/18 16:23 11:14 06:09 POC Glucose 187 H 129 H 205 H 05/28/18 05/28/18 20:33 07:04 POC Glucose 146 H 207 H Labs reviewed by me Phys Exam - Physical Examination Constitutional: NAD HEENT: moist MMs, sclera anicteric, oral pharynx no lesions, 2+ tonsils Neck: no nodes, no JVD, supple, full ROM Respiratory: no wheezing, no rales, no rhonchi, clear to auscultation bilateral Cardiovascular: RRR, no rub Gastrointestinal: soft, non-tender, positive bowel sounds gal hydronephrosis Neurological: moves all 4 limbs Psychiatric: normal affect Deviation from normal: Oriented to person, not to place or time Dx/Plan (1) LISA (acute kidney injury) Code(s): N17.9 - ACUTE KIDNEY FAILURE, UNSPECIFIED Status: Acute Comment: Improving (2) Bilateral hydronephrosis Code(s): N13.30 - UNSPECIFIED HYDRONEPHROSIS Status: Acute Comment: s/p gal Nephrostomy tube placement (3) UTI (urinary tract infection) Status: Acute Comment: continue ceftriaxone IV (4) Alzheimer's dementia Code(s): G30.9 - ALZHEIMER'S DISEASE, UNSPECIFIED; F02.80 - DEMENTIA IN OTH DISEASES CLASSD ELSWHR W/O BEHAVRL DISTURB Status: Chronic Comment: stable - Plan * . Review of Systems - Review of Systems Constitutional: negative: fever, chills, sweats, weakness, malaise Respiratory: negative: Cough, Shortness of Breath, SOB with Excertion, Pleuritic Pain, Wheezing Cardiovascular: negative: chest pain, palpitations, orthopnea, paroxysmal nocturnal dyspnea, edema, light headedness Gastrointestinal: negative: Nausea, Vomiting, Abdominal Pain, Diarrhea, Constipation, Melena, Hematochezia Genitourinary: negative: Dysuria, Frequency, Incontinence, Hematuria, Retention Skin: negative: Rash, Lesions, Deion, Bruising - Medications/Allergies Allergies/Adverse Reactions: Allergies Allergy/AdvReac Type Severity Reaction Status Date / Time lisinopril Allergy Verified 05/26/18 22:04 Medications: Current Medications Acetaminophen (Tylenol) 650 mg PO Q4H PRN PRN Reason: Headache/Fever or Pain Last Admin: 05/29/18 15:29 Dose: 650 mg Atorvastatin Calcium (Lipitor) 40 mg PO QPM [facility] Last Admin: 05/28/18 21:15 Dose: 40 mg Citalopram Hydrobromide (Celexa) 40 mg PO DAILY [facility] Last Admin: 05/29/18 09:45 Dose: 40 mg Dextrose/Water (Dextrose 50%) 25 gm SLOW IVP PRN PRN PRN Reason: Hypoglycemia Donepezil HCl (Aricept) 10 mg PO DAILY [facility] Last Admin: 05/29/18 09:45 Dose: 10 mg Famotidine (Pepcid) 20 mg PO DAILY [facility] Last Admin: 05/29/18 09:45 Dose: 20 mg Finasteride (Proscar) 5 mg PO DAILY [facility] Last Admin: 05/29/18 09:45 Dose: 5 mg Glucagon (Glucagon) 1 mg IM PRN PRN PRN Reason: Hypoglycemia Ceftriaxone Sodium 1 gm/ (Sodium Chloride) 100 mls @ 200 mls/hr IVPB 2200 [facility] Last Admin: 05/28/18 21:27 Dose: 100 mls Dextrose/Water (D5w) 1,000 mls @ 125 mls/hr IV .Q8H [facility] Last Admin: 05/29/18 15:30 Dose: 1,000 mls Dextrose/Water (D5w) 1,000 mls @ 0 mls/hr IV .Q0M PRN; As Directed PRN Reason: Hypoglycemia Insulin Human Lispro (Humalog) 0 units SC .MODERATE SLIDING SC PRN PRN Reason: Moderate Correctional Scale Last Admin: 05/28/18 18:22 Dose: 4 unit Insulin Human Lispro (Humalog) 0 units SC .BEDTIME SLIDING SC PRN PRN Reason: Bedtime Correctional Scale Melatonin (Melatonin) 3 mg PO HS [facility] Last Admin: 05/28/18 21:15 Dose: 3 mg Sodium Chloride (Flush - Normal Saline) 10 ml IVF Q12HR [facility] Last Admin: 05/29/18 16:59 Dose: Not Given Sodium Chloride (Flush - Normal Saline) 10 ml IVF PRN PRN PRN Reason: Saline Flush
[2018-05-29] MEDS: HumaLOG 300 UNITS/3 ML VIAL SC PRN (18:08)
[2018-05-29] MEDS: Melatonin 3 MG TAB PO SCH (21:45)
[2018-05-29] MEDS: cefTRIAXone\\ROCEPHIN 1 GM in Sodium Chloride 0.9% 100 ML IVPB SCH (21:45)
[2018-05-29] MEDS: Atorvastatin Calcium 40 MG TAB PO SCH (21:45)
[2018-05-30] MEDS: Dextrose 5% in Water 1,000 ML IV SCH ×3 (00:18→17:26)
[2018-05-30] MEDS: HumaLOG 300 UNITS/3 ML VIAL SC PRN ×3 (06:25→17:25)
[2018-05-30 07:52] LABS: Lymphocytes 25 % (21-51); MDiff Complete? YES; Mean Corpuscular HGB CONC 33.3 g/dL (32.0-36.0); Mean Corpuscular Hemoglobin 27.6 pg (27.0-31.0); Mean Corpuscular Volume 82.7 fL (78.0-98.0); Mean Platelet Volume 9.5 fL (7.4-10.4); Monocytes 14 % (0-10); Neutrophil 61 % (42-75); PLT Morphology Comment Appears Decreased; Platelet Count 108 thou/uL (130-400); Polychromasia SLIGHT = 2-3 cells (100X) (0-2/hpf); RBC Distribution Width 13.2 % (11.5-14.5); Red Blood Cell (RBC) Count 2.92 mill/uL (4.70-6.10); Reflex for Review?? NO; Rouleaux Formation MODERATE= 6-15 cells (100X) (None Seen); White Blood Cell (WBC) Count 12.9 thou/uL (4.8-10.8)
[2018-05-30 08:00] LABS: Anion Gap 18 mmol/L (10-20); BUN (Urea Nitrogen) 52 mg/dL (8.4-25.7); Calc. Creatinine Clearance 15 mL/min (70-130); Calcium 8.7 mg/dL (7.8-10.44); Carbon Dioxide 19 mmol/L (23-31); Chloride 104 mmol/L (98-107); Estimated GFR-MDRD 13; Glucose 159 mg/dL (83-110); Potassium 3.3 mmol/L (3.5-5.1); Sodium 138 mmol/L (136-145)
[2018-05-30] MEDS: Citalopram 20 MG TAB PO SCH (08:36)
[2018-05-30] MEDS: Finasteride 5 MG TAB PO SCH (08:36)
[2018-05-30] MEDS: Donepezil HCl 10 MG TAB PO SCH (08:36)
[2018-05-30] MEDS: Famotidine 20 MG TAB PO SCH (08:36)
[2018-05-30] MEDS ORDERED: Potassium Chloride 20 MEQ TAB PO SCH (10:15)
--- NOTE | 2018-05-30 11:15 | PRG ---
DATE OF SERVICE: 05/30/2018 SUBJECTIVE: Patient was seen and examined at bedside and overnight events noted. Patient denies any shortness of breath or chest pain or palpitation. No history of nausea or vomiting or diarrhea or f ever or chills or cramps. OBJECTIVE: GENERAL: This is a well-built male in no apparent distress. VITAL SIGNS: Temperature 98, pulse 102, respiratory rate 18, blood pressure 117/67. HEENT: Atraumatic, normocephalic. Oral mucosa is moist. NECK: Supple. CARDIOVASCULAR: S1, S2 heard. Rate and rhythm regular. RESPIRATORY: Clear to auscultation. GASTROINTESTINAL: Abdomen is soft. MUSCULOSKELETAL: No tenderness. No edema. DERMATOLOGIC: No skin rash. NEUROLOGIC: Alert and awake and oriented x3. No focal neurologic deficits. Moving all the extremiti es. PSYCHIATRIC: Mood and affect normal. LABORATORY DATA: Potassium 3.3, BUN 52, creatinine 5.3. ASSESSMENT AND PLAN: 1. Acute kidney injury on chronic kidney disease, stage 3. Renal function continues to improve seco ndary to obstructive uropathy. 2. Hypokalemia, replace. 3. Edema, controlled. 4. Hypertension. 5. Metabolic acidosis, better. Overall, labs are better. Plan is to monitor renal function, replace potassium today.
--- NOTE | 2018-05-30 14:06 | PDOC.PN ---
- Subjective Encounter Start Date: 05/30/18 Encounter Start Time: 09:20 Pt seen for followup re: LISA. Denies chest pain, shortness of breath, fevers or chills. - Objective Resuscitation Status: Resuscitation Status FULL:Full Resuscitation Vital Signs & Weight: Vital Signs (12 hours) Temp Pulse Resp BP BP Pulse Ox 05/30/18 11:00 98.5 F 98 20 113/67 98 05/30/18 08:15 98.8 F 102 H 20 96 05/30/18 08:13 98.8 F 102 H 20 117/67 96 05/30/18 04:50 98.8 F 97 16 121/74 97 Weight Weight 205 lb 7 oz I&O: 05/29/18 05/30/18 05/31/18 06:59 06:59 06:59 Intake Total 4920 3440 Output Total 5050 4110 Balance -130 -670 Result Diagrams: 05/30/18 07:33 05/30/18 07:33 Additional Labs: Accuchecks 05/30/18 05/30/18 05/29/18 10:52 05:54 20:57 POC Glucose 210 H 199 H 154 H 05/29/18 16:23 POC Glucose 187 H Phys Exam - Physical Examination Constitutional: NAD HEENT: moist MMs Neck: supple Respiratory: clear to auscultation bilateral Cardiovascular: RRR Gastrointestinal: soft gal nephrostomies Neurological: moves all 4 limbs Psychiatric: normal affect Dx/Plan (1) LISA (acute kidney injury) Code(s): N17.9 - ACUTE KIDNEY FAILURE, UNSPECIFIED Status: Acute Comment: Improving, creatinine 5.30 today (2) Hypokalemia Code(s): E87.6 - HYPOKALEMIA Status: Acute Comment: replace potassium (3) Bilateral hydronephrosis Code(s): N13.30 - UNSPECIFIED HYDRONEPHROSIS Status: Acute Comment: s/p gal Nephrostomy (4) Alzheimer's dementia Code(s): G30.9 - ALZHEIMER'S DISEASE, UNSPECIFIED; F02.80 - DEMENTIA IN OTH DISEASES CLASSD ELSWHR W/O BEHAVRL DISTURB Status: Chronic Comment: stable (5) UTI (urinary tract infection) Status: Resolved Comment: final urine culture negative - Plan * . Review of Systems - Review of Systems Respiratory: negative: Cough, Shortness of Breath, SOB with Excertion, Pleuritic Pain, Wheezing Cardiovascular: negative: chest pain, palpitations, orthopnea, paroxysmal nocturnal dyspnea, edema, light headedness - Medications/Allergies Allergies/Adverse Reactions: Allergies Allergy/AdvReac Type Severity Reaction Status Date / Time lisinopril Allergy Verified 05/26/18 22:04 Medications: Current Medications Acetaminophen (Tylenol) 650 mg PO Q4H PRN PRN Reason: Headache/Fever or Pain Last Admin: 05/29/18 15:29 Dose: 650 mg Atorvastatin Calcium (Lipitor) 40 mg PO QPM [facility] Last Admin: 05/29/18 21:45 Dose: 40 mg Citalopram Hydrobromide (Celexa) 40 mg PO DAILY [facility] Last Admin: 05/30/18 08:36 Dose: 40 mg Dextrose/Water (Dextrose 50%) 25 gm SLOW IVP PRN PRN PRN Reason: Hypoglycemia Donepezil HCl (Aricept) 10 mg PO DAILY [facility] Last Admin: 05/30/18 08:36 Dose: 10 mg Famotidine (Pepcid) 20 mg PO DAILY [facility] Last Admin: 05/30/18 08:36 Dose: 20 mg Finasteride (Proscar) 5 mg PO DAILY [facility] Last Admin: 05/30/18 08:36 Dose: 5 mg Glucagon (Glucagon) 1 mg IM PRN PRN PRN Reason: Hypoglycemia Ceftriaxone Sodium 1 gm/ (Sodium Chloride) 100 mls @ 200 mls/hr IVPB 2200 [facility] Last Admin: 05/29/18 21:45 Dose: 100 mls Dextrose/Water (D5w) 1,000 mls @ 125 mls/hr IV .Q8H [facility] Last Admin: 05/30/18 08:34 Dose: 1,000 mls Dextrose/Water (D5w) 1,000 mls @ 0 mls/hr IV .Q0M PRN; As Directed PRN Reason: Hypoglycemia Insulin Human Lispro (Humalog) 0 units SC .MODERATE SLIDING SC PRN PRN Reason: Moderate Correctional Scale Last Admin: 05/30/18 11:44 Dose: 4 unit Insulin Human Lispro (Humalog) 0 units SC .BEDTIME SLIDING SC PRN PRN Reason: Bedtime Correctional Scale Melatonin (Melatonin) 3 mg PO HS [facility] Last Admin: 05/29/18 21:45 Dose: 3 mg Sodium Chloride (Flush - Normal Saline) 10 ml IVF Q12HR [facility] Last Admin: 05/30/18 08:36 Dose: Not Given Sodium Chloride (Flush - Normal Saline) 10 ml IVF PRN PRN PRN Reason: Saline Flush
[2018-05-30] MEDS: Acetaminophen 325 MG TAB PO PRN (17:24)
[2018-05-30] MEDS: Melatonin 3 MG TAB PO SCH (21:03)
[2018-05-30] MEDS: Atorvastatin Calcium 40 MG TAB PO SCH (21:03)
[2018-05-30] MEDS: cefTRIAXone\\ROCEPHIN 1 GM in Sodium Chloride 0.9% 100 ML IVPB SCH (21:03)
--- NOTE | 2018-05-30 22:44 | PRG ---
DATE OF SERVICE: 05/30/2018 SUBJECTIVE: Denies any complaints. OBJECTIVE: VITAL SIGNS: Temperature 98.7, blood pressure 109/69, pulse 98, respiratory rate 22. ABDOMEN: Soft, nontender, no palpable masses. EXTREMITIES: No edema. Both nephrostomy tubes draining slightly blood tinged urine. LABORATORY: Hemoglobin 8.0, hematocrit 24.1, creatinine 5.3. IMPRESSION: Creatinine has dropped significantly since placement of the left nephrostomy tube. His appetite has returned. He is comfortable. PLAN: We will discuss with Interventional Radiology the possibility of internalizing his drainage by placement of antegrade bilateral ureteral stents. The hope is that he will recover in regard to his renal function and his mobility status will improve. [facility] [place] [facility] next [facility].
[2018-05-31] MEDS: Dextrose 5% in Water 1,000 ML IV SCH ×2 (00:28→08:46)
[2018-05-31 04:47] LABS: Anion Gap 13 mmol/L (10-20); BUN (Urea Nitrogen) 45 mg/dL (8.4-25.7); Calc. Creatinine Clearance 17 mL/min (70-130); Calcium 8.8 mg/dL (7.8-10.44); Carbon Dioxide 23 mmol/L (23-31); Chloride 106 mmol/L (98-107); Estimated GFR-MDRD 15; Glucose 181 mg/dL (83-110); Potassium 3.7 mmol/L (3.5-5.1); Sodium 138 mmol/L (136-145)
[2018-05-31 05:02] LABS: Band 6 % (5-11); Hemoglobin 7.1 g/dL (14.0-18.0); Lymphocytes 31 % (21-51); MDiff Complete? YES; Mean Corpuscular HGB CONC 33.1 g/dL (32.0-36.0); Mean Corpuscular Hemoglobin 27.7 pg (27.0-31.0); Mean Corpuscular Volume 83.5 fL (78.0-98.0); Mean Platelet Volume 9.9 fL (7.4-10.4); Monocytes 14 % (0-10); Neutrophil 49 % (42-75); PLT Morphology Comment Appears Decreased; Platelet Count 111 thou/uL (130-400); RBC Distribution Width 13.3 % (11.5-14.5); Red Blood Cell (RBC) Count 2.56 mill/uL (4.70-6.10); White Blood Cell (WBC) Count 12.6 thou/uL (4.8-10.8)
[2018-05-31] MEDS: Citalopram 20 MG TAB PO SCH (08:45)
[2018-05-31] MEDS: Famotidine 20 MG TAB PO SCH (08:46)
[2018-05-31] MEDS: Finasteride 5 MG TAB PO SCH (08:46)
[2018-05-31] MEDS: Donepezil HCl 10 MG TAB PO SCH (08:46)
[2018-05-31] MEDS ORDERED: Potassium Chloride 20 MEQ TAB PO SCH (10:30)
[2018-05-31] MEDS: HumaLOG 300 UNITS/3 ML VIAL SC PRN (11:10)
--- NOTE | 2018-05-31 12:20 | PRG ---
DATE OF SERVICE: 05/31/2018. SUBJECTIVE: Patient was seen and examined at bedside and overnight events noted. Patient denies any shortness of breath or chest pain or palpitation. No history of nausea or vomiting or diarrhea or f ever or chills or cramps. OBJECTIVE: GENERAL: This is a well-built male in no apparent distress. VITAL SIGNS: Temperature 98.5, pulse 107, respiratory rate 20, blood pressure 108/60. HEENT: Atraumatic, normocephalic. Oral mucosa is moist. NECK: Supple. CARDIOVASCULAR: S1, S2 heard. Rate and rhythm regular. RESPIRATORY: Clear to auscultation. GASTROINTESTINAL: Abdomen is soft. MUSCULOSKELETAL: No tenderness, no edema. DERMATOLOGIC: No skin rash. NEUROLOGIC: Alert and awake and oriented x3. No focal neurologic deficits. Moving all the extremit ies. PSYCHIATRIC: Mood and affect normal. LABORATORY DATA: Potassium 3.7, BUN is 45, creatinine is 4.6. ASSESSMENT AND PLAN: 1. Acute kidney injury on chronic kidney disease secondary to urinary obstruction. Creatinine is ge tting better. 2. Edema, controlled. 3. Hypertension. 4. Hyperkalemia. Replace. 5. Metabolic acidosis, stable. Overall, renal function is getting better slowly. Follow with Urology for further plan. We will fol low.
[2018-05-31] MEDS ORDERED: Midazolam HCl 2 mg/2 ml Vial ONE (13:19)
[2018-05-31] MEDS ORDERED: Fentanyl 100 MCG/2 ML VIAL ONE (13:19)
[2018-05-31] MEDS: Sodium Chloride 0.9% 1,000 ML IV SCH ×2 (14:00→20:26)
--- NOTE | 2018-05-31 15:56 | PDOC.PN ---
- Subjective Encounter Start Date: 05/31/18 Encounter Start Time: 10:20 Pt seen for followup re: LISA. Denies any complaints. - Objective Resuscitation Status: Resuscitation Status FULL:Full Resuscitation MAR Reviewed: Yes Vital Signs & Weight: Vital Signs (12 hours) Temp Pulse Resp BP Pulse Ox 05/31/18 12:06 98.5 F 97 18 133/78 97 05/31/18 07:49 98.5 F 107 H 20 100 05/31/18 07:38 98.5 F 107 H 20 108/68 100 Weight Weight 205 lb 7 oz I&O: 05/30/18 05/31/18 06/01/18 06:59 06:59 06:59 Intake Total 3440 2494 Output Total 4110 4450 Balance -670 -1956 Result Diagrams: 05/31/18 03:27 05/31/18 03:30 Additional Labs: Accuchecks 05/31/18 05/31/18 05/30/18 10:51 05:58 21:36 POC Glucose 332 H 208 H 256 H Labs reviewed by me Phys Exam - Physical Examination Constitutional: NAD HEENT: moist MMs Neck: supple Respiratory: clear to auscultation bilateral Cardiovascular: RRR Gastrointestinal: soft gal nephrostomy Neurological: moves all 4 limbs Psychiatric: normal affect Dx/Plan (1) LISA (acute kidney injury) Code(s): N17.9 - ACUTE KIDNEY FAILURE, UNSPECIFIED Status: Acute Comment: Improving, creatinine 4.62 today (2) Bilateral hydronephrosis Code(s): N13.30 - UNSPECIFIED HYDRONEPHROSIS Status: Acute Comment: s/p gal Nephrostomy, pt to have internalization (3) Alzheimer's dementia Code(s): G30.9 - ALZHEIMER'S DISEASE, UNSPECIFIED; F02.80 - DEMENTIA IN OTH DISEASES CLASSD ELSWHR W/O BEHAVRL DISTURB Status: Chronic Comment: stable (4) UTI (urinary tract infection) Status: Resolved (5) Hypokalemia Code(s): E87.6 - HYPOKALEMIA Status: Resolved - Plan * . Review of Systems - Review of Systems Respiratory: negative: Cough, Shortness of Breath, SOB with Excertion, Pleuritic Pain, Wheezing Cardiovascular: negative: chest pain, palpitations, orthopnea, paroxysmal nocturnal dyspnea, edema, light headedness - Medications/Allergies Allergies/Adverse Reactions: Allergies Allergy/AdvReac Type Severity Reaction Status Date / Time lisinopril Allergy Verified 05/26/18 22:04 Medications: Current Medications Acetaminophen (Tylenol) 650 mg PO Q4H PRN PRN Reason: Headache/Fever or Pain Last Admin: 05/30/18 17:24 Dose: 650 mg Atorvastatin Calcium (Lipitor) 40 mg PO QPM [facility] Last Admin: 05/30/18 21:03 Dose: 40 mg Citalopram Hydrobromide (Celexa) 40 mg PO DAILY [facility] Last Admin: 05/31/18 08:45 Dose: 40 mg Dextrose/Water (Dextrose 50%) 25 gm SLOW IVP PRN PRN PRN Reason: Hypoglycemia Donepezil HCl (Aricept) 10 mg PO DAILY [facility] Last Admin: 05/31/18 08:46 Dose: 10 mg Famotidine (Pepcid) 20 mg PO DAILY [facility] Last Admin: 05/31/18 08:46 Dose: 20 mg Finasteride (Proscar) 5 mg PO DAILY [facility] Last Admin: 05/31/18 08:46 Dose: 5 mg Glucagon (Glucagon) 1 mg IM PRN PRN PRN Reason: Hypoglycemia Ceftriaxone Sodium 1 gm/ (Sodium Chloride) 100 mls @ 200 mls/hr IVPB 2200 [facility] Last Admin: 05/30/18 21:03 Dose: 100 mls Dextrose/Water (D5w) 1,000 mls @ 0 mls/hr IV .Q0M PRN PRN Reason: Hypoglycemia Sodium Chloride (Normal Saline 0.9%) 1,000 mls @ 125 mls/hr IV .Q8H [facility] Insulin Human Lispro (Humalog) 0 units SC .MODERATE SLIDING SC PRN PRN Reason: Moderate Correctional Scale Last Admin: 05/31/18 11:10 Dose: 8 unit Insulin Human Lispro (Humalog) 0 units SC .BEDTIME SLIDING SC PRN PRN Reason: Bedtime Correctional Scale Melatonin (Melatonin) 3 mg PO HS [facility] Last Admin: 05/30/18 21:03 Dose: 3 mg Sodium Chloride (Flush - Normal Saline) 10 ml IVF Q12HR [facility] Last Admin: 05/31/18 08:46 Dose: Not Given Sodium Chloride (Flush - Normal Saline) 10 ml IVF PRN PRN PRN Reason: Saline Flush
[2018-05-31] MEDS: Acetaminophen 325 MG TAB PO PRN (16:57)
--- NOTE | 2018-05-31 18:02 | SPC ---
FLUOROSCOPIC GUIDED BILATERAL ANTEGRADE URETERAL STENT PLACEMENT BILATERAL ANTEGRADE NEPHROSTOGRAM AND PERCUTANEOUS NEPHROSTOMY TUBE EXCHANGE PERCUTANEOUS BALLOON ANGIOPLASTY LEFT URETER. 05/31/18 Fluoro time equals 21.8 minutes. CONSCIOUS SEDATION: 2 mg versed, IV. 100 mcg Fentanyl, IV. FINDINGS: After explaining the procedure and answering all questions, each flank and indwelling percutaneous ne phrostomy catheter were prepped and draped in the usual sterile fashion. Small amount of contrast was carefully instilled into the right renal collecting system through the indwelling catheter for opaci fication. Guide wire was placed and the old tube removed. The wire was carefully passed into the uri nary bladder through the right ureter. A 6 [place] 24 cm internal stent was then carefully placed over the wire, with the distal coil in the urinary bladder and the proximal coil at the right renal pelvi s. A new 8 [place] percutaneous nephrostomy catheter was placed over the wire and coiled in the renal col lecting system. Catheter was secured externally with 0 silk suture and left draining to gravity. Attention was then turned the left percutaneous nephrostomy catheter. Again, contrast was injected to opacify the system. Guide wire was placed. The angle of access precluded good placement of an paid internship al stent. A new access was made to a mid pole calyx with a 22 gauge Accustick system. The left ureter is very tortuous. Some difficulty was encountered advancing a 5 [place] catheter through the mid uret er and obstruction at the distal ureter. A 6 mm x 2 cm dilatation balloon was carefully placed over t he wire, with serial dilatations at the mid to distal ureter, achieving full balloon profile. The 6 [place] internal sheath was unable to be completely passed into the bladder. A 5 [place] internal stent was then eventually placed over the wire, securing the distal loop in the u rinary bladder and the proximal loop in the renal pelvis. Position was confirmed with contrast. A new locking loop 8 [place] percutaneous nephrostomy catheter was then placed into the renal pelvis and se cured externally with 0 Silk suture. Patient tolerated the procedure well and was eventually returned in unchanged condition. IMPRESSION: Stenotic but patent bilateral distal ureters. Successful placement bilateral antegrade ureteral stent s, 6 [place] on the right and 5 [place] on the left. Successful bilateral percutaneous nephrostomy cath eter exchange. POS: [facility]
[2018-05-31] MEDS: Melatonin 3 MG TAB PO SCH (20:25)
[2018-05-31] MEDS: Atorvastatin Calcium 40 MG TAB PO SCH (20:25)
[2018-05-31] MEDS: cefTRIAXone\\ROCEPHIN 1 GM in Sodium Chloride 0.9% 100 ML IVPB SCH (21:58)
[2018-06-01] MEDS: Sodium Chloride 0.9% 1,000 ML IV SCH ×3 (04:46→21:23)
[2018-06-01 05:04] LABS: Anion Gap 14 mmol/L (10-20); BUN (Urea Nitrogen) 37 mg/dL (8.4-25.7); Calc. Creatinine Clearance 21 mL/min (70-130); Calcium 8.8 mg/dL (7.8-10.44); Carbon Dioxide 22 mmol/L (23-31); Chloride 112 mmol/L (98-107); Estimated GFR-MDRD 19; Glucose 124 mg/dL (83-110); Potassium 3.8 mmol/L (3.5-5.1); Sodium 144 mmol/L (136-145)
[2018-06-01 05:53] LABS: Band 1 % (5-11); Hemoglobin 6.9 g/dL (14.0-18.0); Lymphocytes 22 % (21-51); MDiff Complete? YES; Mean Corpuscular HGB CONC 32.7 g/dL (32.0-36.0); Mean Corpuscular Hemoglobin 27.5 pg (27.0-31.0); Mean Corpuscular Volume 84.2 fL (78.0-98.0); Mean Platelet Volume 10.2 fL (7.4-10.4); Monocytes 13 % (0-10); Neutrophil 64 % (42-75); PLT Morphology Comment Appears Adequate; Platelet Count 126 thou/uL (130-400); RBC Distribution Width 13.4 % (11.5-14.5); Red Blood Cell (RBC) Count 2.51 mill/uL (4.70-6.10); White Blood Cell (WBC) Count 12.9 thou/uL (4.8-10.8)
[2018-06-01] MEDS: Citalopram 20 MG TAB PO SCH (09:11)
[2018-06-01] MEDS: Finasteride 5 MG TAB PO SCH (09:11)
[2018-06-01] MEDS: Famotidine 20 MG TAB PO SCH (09:11)
[2018-06-01] MEDS: Donepezil HCl 10 MG TAB PO SCH (09:11)
[2018-06-01] MEDS: HumaLOG 300 UNITS/3 ML VIAL SC PRN (12:40)
--- NOTE | 2018-06-01 15:56 | DIS ---
PRIMARY CARE PROVIDER: [facility] in [place]. DATE OF ADMISSION: 05/26/2018 DATE OF DISCHARGE: 06/01/2018 DISCHARGE DIAGNOSES: 1. Acute renal failure. 2. Bilateral ureteral nephrosis, secondary to obstruction due to prostate cancer. 3. Urinary tract infection. 4. Physical deconditioning. CONSULTATIONS DURING THIS HOSPITALIZATION: Urology, Dr. Felton and Nephrology, Dr. Foley. DISCHARGE MEDICATIONS: Vitamin D3 2000 units 2 times a day, citalopram 40 mg daily, Aricept 10 mg da nathaniel, finasteride 5 mg daily, melatonin 2.5 mg chewable tablet at bedtime, ranitidine 150 mg daily, Zo cor 80 mg at bedtime and insulin by moderate sliding scale. HOSPITAL COURSE: Mr. Weaver is a pleasant 77-year-old gentleman who was admitted to [facility] on 05/26/2018 for acute kidney injury and bilateral hydroureteronephrosis. He unde rwent nephrostomy tube placement bilaterally by Interventional Radiology Service. Please refer to Dr Yary Blcakburn's history and physical note dated 05/27/2018 for further details. He was seen by Urology and Nephrology services. He was started on ceftriaxone for suspected urinary tract infection. Final urine cultures were negative. He also had hematuria at the time of admission , so his aspirin was held. On 05/29/2018, he underwent left nephrostogram and repositioning of left nephrostomy tube because of decreased urine output on the left compared to the right. On 05/31/2018, he underwent a fluoroscopic -guided bilateral antegrade ureteral stent placement, bilateral antegrade nephrostogram and percutane ous nephrostomy tube exchange. He underwent percutaneous balloon angioplasty of the left ureter as w ell. This was all done by Interventional Radiology. He was also physically deconditioned during this hospitalization. He is being discharged to [facility] for further management. On the day of discharge, he has a white count of 12,900, hemoglobin 6.9, for which he is receiving a unit of packed RBCs, platelet count 126,000, sodium 144, potassium 3.8, blood urea nitrogen 37 and cr eatinine 3.83. His creatinine at the time of admission was 9.58. His PSA during this hospitalization was 84.56. Many thanks for allowing me to participate in your patient's care. Please feel free to contact me wi th any questions or concerns. DISCHARGE DESTINATION: [facility]. TOTAL AMOUNT OF TIME SPENT COORDINATING THIS DISCHARGE: 33 minutes.
--- NOTE | 2018-06-01 17:31 | PRG ---
DATE OF SERVICE: 06/01/2018 SUBJECTIVE: Patient was seen and examined at bedside and overnight events noted. Patient denies any shortness of breath or chest pain or palpitation. No history of nausea or vomiting or diarrhea or f ever or chills or cramps. OBJECTIVE: GENERAL: This is a well-built male in no apparent distress. VITAL SIGNS: Temperature 98.4, pulse 93, respiratory rate 18, blood pressure 138/82. HEENT: Atraumatic, normocephalic. Oral mucosa is moist. NECK: Supple. CARDIOVASCULAR: S1, S2 heard. Rate and rhythm regular. RESPIRATORY: Clear to auscultation. GASTROINTESTINAL: Abdomen is soft. MUSCULOSKELETAL: No tenderness. No edema. DERMATOLOGIC: No skin rash. NEUROLOGIC: Alert and awake and oriented x3. No focal neurologic deficits. Moving all the extremiti es. PSYCHIATRIC: Mood and affect normal. LABORATORY DATA: Potassium is 3.8, BUN is 37, creatinine is 3.83. ASSESSMENT AND PLAN: 1. Acute kidney injury on chronic kidney disease secondary to urinary obstruction. Urine output is better. Creatinine is getting better. Follow with Urology. 2. Edema, controlled. 3. Anemia. Transfusion per primary. 4. Hypertension. 5. Hyperkalemia, better. 6. Metabolic acidosis. Overall, renal function is getting better. Transfusion per primary team. Recheck sodium. We will m onitor labs every 2 days, BMP every 2 days and does need for 1 week and follow up with the clinic in 1-[address] Foley.
--- NOTE | 2018-06-01 19:50 | PDOC.PN ---
- Subjective Encounter Start Date: 06/01/18 Encounter Start Time: 12:00 Pt seen for followup re: acute renal failure. Denies any complaints. - Objective Resuscitation Status: Resuscitation Status FULL:Full Resuscitation Vital Signs & Weight: Vital Signs (12 hours) Temp Pulse Pulse Resp BP BP BP 06/01/18 16:16 98.4 F 96 18 138/82 06/01/18 16:15 98.4 F 96 18 06/01/18 13:30 98.9 F 105 H 18 126/77 06/01/18 13:10 98.6 F 100 18 136/81 06/01/18 11:20 98.4 F 96 16 115/72 06/01/18 08:00 98.3 F 101 H 14 149/85 H 06/01/18 07:50 98.8 F 96 18 BP Pulse Ox 06/01/18 16:16 99 06/01/18 16:15 138/82 99 06/01/18 13:30 06/01/18 13:10 06/01/18 11:20 97 06/01/18 08:00 96 06/01/18 07:50 99 Weight Weight 205 lb 7 oz I&O: 05/31/18 06/01/18 06/02/18 06:59 06:59 06:59 Intake Total 2494 4300 2700 Output Total 4450 5500 2100 Balance -1956 -1200 600 Result Diagrams: 06/01/18 04:40 06/01/18 04:40 Additional Labs: Accuchecks 06/01/18 06/01/18 05/31/18 11:22 05:39 21:05 POC Glucose 174 H 132 H 180 H Phys Exam - Physical Examination Constitutional: NAD HEENT: moist MMs Neck: supple Respiratory: no wheezing Cardiovascular: RRR Gastrointestinal: non-tender Neurological: moves all 4 limbs Psychiatric: normal affect Dx/Plan (1) LISA (acute kidney injury) Code(s): N17.9 - ACUTE KIDNEY FAILURE, UNSPECIFIED Status: Acute Comment: creatinine still improving (2) Bilateral hydronephrosis Code(s): N13.30 - UNSPECIFIED HYDRONEPHROSIS Status: Acute Comment: s/p gal Nephrostomy followed by internalization (3) Alzheimer's dementia Code(s): G30.9 - ALZHEIMER'S DISEASE, UNSPECIFIED; F02.80 - DEMENTIA IN OTH DISEASES CLASSD ELSWHR W/O BEHAVRL DISTURB Status: Chronic Comment: stable (4) UTI (urinary tract infection) Status: Resolved (5) Hypokalemia Code(s): E87.6 - HYPOKALEMIA Status: Resolved - Plan * . Review of Systems - Review of Systems Constitutional: negative: fever, chills, sweats, weakness, malaise Cardiovascular: negative: chest pain, palpitations, orthopnea, paroxysmal nocturnal dyspnea, edema, light headedness Neurological: negative: Weakness, Numbness, Incoordination, Change in Speech, Confusion, Seizures - Medications/Allergies Allergies/Adverse Reactions: Allergies Allergy/AdvReac Type Severity Reaction Status Date / Time lisinopril Allergy Verified 05/26/18 22:04 Medications: Current Medications Acetaminophen (Tylenol) 650 mg PO Q4H PRN PRN Reason: Headache/Fever or Pain Last Admin: 05/31/18 16:57 Dose: 650 mg Atorvastatin Calcium (Lipitor) 40 mg PO QPM [facility] Last Admin: 05/31/18 20:25 Dose: 40 mg Citalopram Hydrobromide (Celexa) 40 mg PO DAILY [facility] Last Admin: 06/01/18 09:11 Dose: 40 mg Dextrose/Water (Dextrose 50%) 25 gm SLOW IVP PRN PRN PRN Reason: Hypoglycemia Donepezil HCl (Aricept) 10 mg PO DAILY [facility] Last Admin: 06/01/18 09:11 Dose: 10 mg Famotidine (Pepcid) 20 mg PO DAILY [facility] Last Admin: 06/01/18 09:11 Dose: 20 mg Finasteride (Proscar) 5 mg PO DAILY [facility] Last Admin: 06/01/18 09:11 Dose: 5 mg Glucagon (Glucagon) 1 mg IM PRN PRN PRN Reason: Hypoglycemia Ceftriaxone Sodium 1 gm/ (Sodium Chloride) 100 mls @ 200 mls/hr IVPB 2200 [facility] Last Admin: 05/31/18 21:58 Dose: 100 mls Dextrose/Water (D5w) 1,000 mls @ 0 mls/hr IV .Q0M PRN PRN Reason: Hypoglycemia Sodium Chloride (Normal Saline 0.9%) 1,000 mls @ 125 mls/hr IV .Q8H [facility] Last Admin: 08/09/18 12:40 Dose: 1,000 mls Insulin Human Lispro (Humalog) 0 units SC .MODERATE SLIDING SC PRN PRN Reason: Moderate Correctional Scale Last Admin: 06/01/18 12:40 Dose: 2 unit Insulin Human Lispro (Humalog) 0 units SC .BEDTIME SLIDING SC PRN PRN Reason: Bedtime Correctional Scale Melatonin (Melatonin) 3 mg PO HS [facility] Last Admin: 05/31/18 20:25 Dose: 3 mg Sodium Chloride (Flush - Normal Saline) 10 ml IVF Q12HR [facility] Last Admin: 06/01/18 09:11 Dose: Not Given Sodium Chloride (Flush - Normal Saline) 10 ml IVF PRN PRN PRN Reason: Saline Flush
[2018-06-01] MEDS: Melatonin 3 MG TAB PO SCH (21:22)
[2018-06-01] MEDS: Atorvastatin Calcium 40 MG TAB PO SCH (21:22)
[2018-06-01] MEDS: cefTRIAXone\\ROCEPHIN 1 GM in Sodium Chloride 0.9% 100 ML IVPB SCH (21:23)
[2018-06-01] MEDS: Acetaminophen 325 MG TAB PO PRN (23:50)
[2018-06-02] MEDS: Sodium Chloride 0.9% 1,000 ML IV SCH ×3 (05:52→21:20)
[2018-06-02 06:06] LABS: Anion Gap 11 mmol/L (10-20); BUN (Urea Nitrogen) 32 mg/dL (8.4-25.7); Calc. Creatinine Clearance 24 mL/min (70-130); Calcium 8.9 mg/dL (7.8-10.44); Carbon Dioxide 22 mmol/L (23-31); Chloride 115 mmol/L (98-107); Estimated GFR-MDRD 22; Glucose 128 mg/dL (83-110); Potassium 3.8 mmol/L (3.5-5.1); Sodium 144 mmol/L (136-145)
[2018-06-02 07:30] LABS: Band 2 % (5-11); Hemoglobin 8.6 g/dL (14.0-18.0); Lymphocytes 27 % (21-51); MDiff Complete? YES; Mean Corpuscular HGB CONC 33.1 g/dL (32.0-36.0); Mean Corpuscular Hemoglobin 27.9 pg (27.0-31.0); Mean Corpuscular Volume 84.2 fL (78.0-98.0); Mean Platelet Volume 9.6 fL (7.4-10.4); Monocytes 21 % (0-10); Neutrophil 49 % (42-75); PLT Morphology Comment Appears Decreased; Platelet Count 119 thou/uL (130-400); Polychromasia SLIGHT = 2-3 cells (100X) (0-2/hpf); RBC Distribution Width 13.4 % (11.5-14.5); Red Blood Cell (RBC) Count 3.09 mill/uL (4.70-6.10); White Blood Cell (WBC) Count 9.9 thou/uL (4.8-10.8)
[2018-06-02] MEDS: Famotidine 20 MG TAB PO SCH (08:33)
[2018-06-02] MEDS: Citalopram 20 MG TAB PO SCH (08:33)
[2018-06-02] MEDS: Finasteride 5 MG TAB PO SCH (08:33)
[2018-06-02] MEDS: Donepezil HCl 10 MG TAB PO SCH (08:33)
--- NOTE | 2018-06-02 10:43 | PRG ---
Patient Name: RUTH ANN ALONZO Date of service: 06/02/2018 Subjective: Patient was seen and examined at bedside and overnight events noted. Patient denies any shortness of breath or chest pain or palpitation. No history of nausea or vomiting or diarrhea or fever or chills or cramps. Objective: General: This is a well-built male in no apparent distress. Vital signs: Temperature 98, pulse 90, respiratory rate 18, blood pressure 146/76. HEENT: Atraumatic, normocephalic. Oral mucosa is moist. Neck: Supple. Cardiovascular: S1 S2 heard. Rate and rhythm regular. Respiratory: Clear to auscultation. Gastrointestinal: Abdomen is soft. Musculoskeletal: No tenderness. No edema. Dermatologic: No skin rash. Neurologic: Alert and awake and oriented X3. No focal neurologic deficits. Moving all the extremit ies. Psychiatric: Mood and affect normal. LABORATORY DATA: Potassium 3.8, BUN 32, creatinine 3.3. ASSESSMENT AND PLAN: 1. Acute kidney injury on chronic kidney disease stage 3. Renal function is slowly getting better. 2. Urinary obstruction. Follow up with Urology. 3. Edema. 4. Anemia. 5. Hypertension, stable. 6. Hyperkalemia, better. 7. Metabolic acidosis, stable. Overall, renal function is getting better. Avoid nephrotoxins. Follow up with Dr. Og adan
--- NOTE | 2018-06-02 12:31 | SPC ---
RIGHT PERCUTANEOUS NEPHROSTOGRAM AND CATHETER REMOVAL: LEFT PERCUTANEOUS NEPHROSTOGRAM: HISTORY: Prostate cancer with distal ureteral obstruction. Evaluate bilateral nephrostomies for removal. FINDINGS: After carefully preparing the external portion of each percutaneous nephrostomy, the right side was a ddressed first. A small amount of contrast was injected to confirm function of the internal stent. The percutaneous nephrostomy catheter was then carefully removed under fluoroscopic control without d ifficulty. Attention was turned to the left side. A small amount of contrast was injected. The proximal coil o f the internal stent has extended laterally along the tract of the percutaneous nephrostomy catheter. The tip of the proximal coil lies just outside the renal cortex. Sterile technique was used to place a 0.035 Glidewire through the indwelling percutaneous nephrostomy catheter. The catheter was carefully repositioned under fluoroscopic guidance, in an unsuccessful a ttempt to reposition the proximal coil of the internal stent into the proper position at the renal pe lvis. The internal stent was unable to be advanced. The percutaneous nephrostomy catheter was then repositioned and coiled within the renal pelvis, in go od position, with good function. The catheter was secured externally with #0 silk sutures and buffer ed local anesthesia. The patient tolerated the procedure well and was returned in improved condition . The findings were discussed with Dr. Felton at the time of the exam. For the next step, the most ap propriate step would probably be to pull the distal end of the right ureteral stent from the urinary bladder, so that the proximal coil is moved centrally and to the renal pelvis. IMPRESSION: 1. Technically successful removal of right percutaneous nephrostomy catheter. 2. Malposition of proximal coil, left ureteral internal stent, as detailed above. CODE CR POS: [facility]
[2018-06-02] MEDS ORDERED: PHENYLEPHRINE-NS 100 MCG/ML 10 ML SYRINGE ONE (13:08)
[2018-06-02] MEDS ORDERED: PROPOFOL 200 MG/20 ML VIAL ONE (13:08)
--- NOTE | 2018-06-02 17:10 | PDOC.PN ---
- Subjective Encounter Start Date: 06/02/18 Encounter Start Time: 09:00 Pt seen for followup re: LISA. Denies chest pain, shortness of breath, fevers or chills. - Objective Resuscitation Status: Resuscitation Status FULL:Full Resuscitation MAR Reviewed: Yes Vital Signs & Weight: Vital Signs (12 hours) Temp Pulse Resp BP Pulse Ox 06/02/18 15:30 98.7 F 93 12 153/88 H 99 06/02/18 11:30 98.8 F 94 16 144/87 H 98 06/02/18 08:33 98 F 99 16 99 06/02/18 07:10 98 F 99 16 144/83 H 99 Weight Weight 205 lb 7 oz I&O: 06/01/18 06/02/18 06/03/18 06:59 06:59 06:59 Intake Total 4300 4400 Output Total 5500 3575 Balance -1200 825 Result Diagrams: 06/02/18 05:45 06/02/18 05:45 Additional Labs: Accuchecks 06/02/18 06/02/18 06/02/18 15:20 11:43 05:44 POC Glucose 133 H 182 H 140 H 06/01/18 06/01/18 21:41 16:23 POC Glucose 146 H 132 H Labs reviewed by me Phys Exam - Physical Examination HEENT: moist MMs Neck: supple Respiratory: clear to auscultation bilateral Cardiovascular: RRR Gastrointestinal: soft Neurological: moves all 4 limbs Psychiatric: normal affect Dx/Plan (1) LISA (acute kidney injury) Code(s): N17.9 - ACUTE KIDNEY FAILURE, UNSPECIFIED Status: Acute Comment: creatinine still improving, 3.33 today (2) Bilateral hydronephrosis Code(s): N13.30 - UNSPECIFIED HYDRONEPHROSIS Status: Acute Comment: s/p gal Nephrostomy followed by internalization. Pt to go to OR today due to stent displacement and for removal of one of the nephrostomy tubes (IR could only remove one) (3) Alzheimer's dementia Code(s): G30.9 - ALZHEIMER'S DISEASE, UNSPECIFIED; F02.80 - DEMENTIA IN OTH DISEASES CLASSD ELSWHR W/O BEHAVRL DISTURB Status: Chronic Comment: stable (4) UTI (urinary tract infection) Status: Resolved Comment: urine cultures negative, off of antibiotics (5) Hypokalemia Code(s): E87.6 - HYPOKALEMIA Status: Resolved - Plan * . Review of Systems - Review of Systems Constitutional: negative: fever, chills, sweats, weakness, malaise Skin: negative: Rash, Lesions, Deion, Bruising - Medications/Allergies Allergies/Adverse Reactions: Allergies Allergy/AdvReac Type Severity Reaction Status Date / Time lisinopril Allergy Verified 05/26/18 22:04 Medications: Current Medications Acetaminophen (Tylenol) 650 mg PO Q4H PRN PRN Reason: Headache/Fever or Pain Last Admin: 06/01/18 23:50 Dose: 650 mg Atorvastatin Calcium (Lipitor) 40 mg PO QPM [facility] Last Admin: 06/01/18 21:22 Dose: 40 mg Citalopram Hydrobromide (Celexa) 40 mg PO DAILY [facility] Last Admin: 06/02/18 08:33 Dose: 40 mg Dextrose/Water (Dextrose 50%) 25 gm SLOW IVP PRN PRN PRN Reason: Hypoglycemia Donepezil HCl (Aricept) 10 mg PO DAILY [facility] Last Admin: 06/02/18 08:33 Dose: 10 mg Famotidine (Pepcid) 20 mg PO DAILY [facility] Last Admin: 06/02/18 08:33 Dose: 20 mg Finasteride (Proscar) 5 mg PO DAILY [facility] Last Admin: 06/02/18 08:33 Dose: 5 mg Glucagon (Glucagon) 1 mg IM PRN PRN PRN Reason: Hypoglycemia Ceftriaxone Sodium 1 gm/ (Sodium Chloride) 100 mls @ 200 mls/hr IVPB 2200 [facility] Last Admin: 06/01/18 21:23 Dose: 100 mls Dextrose/Water (D5w) 1,000 mls @ 0 mls/hr IV .Q0M PRN PRN Reason: Hypoglycemia Sodium Chloride (Normal Saline 0.9%) 1,000 mls @ 125 mls/hr IV .Q8H [facility] Last Admin: 06/02/18 08:35 Dose: 1,000 mls Insulin Human Lispro (Humalog) 0 units SC .MODERATE SLIDING SC PRN PRN Reason: Moderate Correctional Scale Last Admin: 06/01/18 12:40 Dose: 2 unit Insulin Human Lispro (Humalog) 0 units SC .BEDTIME SLIDING SC PRN PRN Reason: Bedtime Correctional Scale Melatonin (Melatonin) 3 mg PO HS [facility] Last Admin: 06/01/18 21:22 Dose: 3 mg Sodium Chloride (Flush - Normal Saline) 10 ml IVF Q12HR [facility] Last Admin: 06/01/18 21:24 Dose: Not Given Sodium Chloride (Flush - Normal Saline) 10 ml IVF PRN PRN PRN Reason: Saline Flush
[2018-06-02] MEDS ORDERED: Fentanyl 100 MCG/2 ML VIAL ONE ×2 (17:42→19:21)
[2018-06-02] MEDS ORDERED: Iothalamate Meglumine 60% 50 ML VIAL FS ONE (17:45)
[2018-06-02] MEDS ORDERED: Ondansetron HCl/PF 4 MG/2 ML Vial IVP PRN (19:25)
[2018-06-02] MEDS ORDERED: Promethazine HCl 25 MG/ML VIAL SLOW IVP PRN (19:25)
[2018-06-02] MEDS ORDERED: Promethazine HCl 25 MG/ML VIAL IM PRN (19:25)
--- NOTE | 2018-06-02 19:46 | RAD ---
RETROGRADE PYELOGRAM: 06/02/18 COMPARISON: None. HISTORY: Renal stone disease. FINDINGS: A single radiograph from a retrograde pyelogram is provided. Images demonstrate contrast media within the renal collecting system on the left. Double-J ureteral stent present on the right. Motion limits assessment of the contrast media within the left renal collecting system. No left sided ureteral jihan nt is seen. Question presence of a nephrostomy tube on the left. IMPRESSION: Limited single radiograph during retrograde pyelogram as above. POS: CHELLY
[2018-06-02] MEDS: Atorvastatin Calcium 40 MG TAB PO SCH (21:17)
[2018-06-02] MEDS: Melatonin 3 MG TAB PO SCH (21:20)
[2018-06-02] MEDS: cefTRIAXone\\ROCEPHIN 1 GM in Sodium Chloride 0.9% 100 ML IVPB SCH (21:20)
[2018-06-02] MEDS: Acetaminophen 325 MG TAB PO PRN (21:26)
--- NOTE | 2018-06-02 21:49 | OP ---
DATE OF PROCEDURE: 06/02/2018 PREOPERATIVE DIAGNOSES: Bilateral ureteral obstruction from prostate cancer, misplaced left ureteral stent. POSTOPERATIVE DIAGNOSES: Bilateral ureteral obstruction from prostate cancer, misplaced left ureteral stent. PROCEDURE: Cystoscopy attempted stent manipulation, left stent removal. SURGEON: Julian Felton MD ANESTHESIA: General. INDICATION: Mr. Weaver is a 77-year-old gentleman with bilateral obstruction of the ureters from metastatic prostate cancer. A retrograde stent placement could not be performed due to anatomic distortion of the bladder from prostate CA. He therefore underwent bilateral nephrostomy tube placement and his creatinine improved from ~9 to ~3. He then had antegrade stent placed by Interventional Radiology in hopes of eventually removing the nephrostomy tubes. He did well after antegrade stent placement and the right nephrostomy tube was removed today, but the proximal aspect of the left ureteral stent was outside the kidney. Interventional Radiology attempts to reposition the left ureteral stent was unsuccessful. He is being brought to the operating room to attempt stent repositioning from below. PROCEDURE IN DETAIL: The patient was given general anesthesia and IV antibiotics. He was sterilely prepped and draped in the lithotomy position. The cystoscope was passed in the bladder and bladder was examined in its entirety. It was not possible to visualize the ureteral orifices but the stents could be see cystoscopically. Unfortunately, however, the left ureteral stent could not be visualized well fluoroscopically. Attempts to darken the image fluoroscopically was not successful and the microbiology technologist could not manipulate the image as he said the image settings were determined automatically and he could not alter them. I decided that with a wire through the stent it may be easier to see. The tip of the stent was brought out the urethral meatus and a guide wire was up the stent. Unfortunately, this resulted in a displaced to the left ureteral stent. The left nephrostomy tube was left in good position coiled in the left renal pelvis and it was placed to gravity drainage. PLAN: He will need antegrade stent placement again on the left side in hopes of removing the left nephrostomy tube. In the meantime, he will be managed with left nephrostomy tube and indwelling right ureteral stent along with his Yoder catheter. COMPLICATIONS: None. ESTIMATED BLOOD LOSS: Minimal. [facility]
[2018-06-03] MEDS ORDERED: Fentanyl 100 MCG/2 ML VIAL SLOW IVP SCH (01:15)
[2018-06-03 04:37] LABS: Anion Gap 10 mmol/L (10-20); BUN (Urea Nitrogen) 27 mg/dL (8.4-25.7); Calc. Creatinine Clearance 28 mL/min (70-130); Calcium 8.6 mg/dL (7.8-10.44); Carbon Dioxide 24 mmol/L (23-31); Chloride 115 mmol/L (98-107); Estimated GFR-MDRD 26; Glucose 123 mg/dL (83-110); Potassium 3.8 mmol/L (3.5-5.1); Sodium 147 mmol/L (136-145)
[2018-06-03 05:16] LABS: Band 2 % (5-11); Hemoglobin 7.8 g/dL (14.0-18.0); Lymphocytes 24 % (21-51); MDiff Complete? YES; Mean Corpuscular HGB CONC 33.6 g/dL (32.0-36.0); Mean Corpuscular Hemoglobin 28.5 pg (27.0-31.0); Mean Corpuscular Volume 84.7 fL (78.0-98.0); Mean Platelet Volume 9.4 fL (7.4-10.4); Monocytes 5 % (0-10); Neutrophil 68 % (42-75); PLT Morphology Comment Appears Decreased; Platelet Count 129 thou/uL (130-400); RBC Distribution Width 13.6 % (11.5-14.5); RBC Morphology Normal; Reactive Lymphocytes 1 % (0-10); Red Blood Cell (RBC) Count 2.73 mill/uL (4.70-6.10); White Blood Cell (WBC) Count 10.3 thou/uL (4.8-10.8)
[2018-06-03] MEDS: Sodium Chloride 0.9% 1,000 ML IV SCH ×2 (06:14→15:51)
[2018-06-03] MEDS: Citalopram 20 MG TAB PO SCH (09:02)
[2018-06-03] MEDS: Finasteride 5 MG TAB PO SCH (09:02)
[2018-06-03] MEDS: Famotidine 20 MG TAB PO SCH (09:03)
[2018-06-03] MEDS: Donepezil HCl 10 MG TAB PO SCH (09:03)
[2018-06-03] MEDS ORDERED: Ondansetron HCl/PF 4 MG/2 ML Vial IVP PRN (10:32)
--- NOTE | 2018-06-03 13:08 | PRG ---
DATE OF SERVICE: 06/03/2018 SUBJECTIVE: Patient was seen and examined at bedside and overnight events noted. Patient denies any shortness of breath or chest pain or palpitation. No history of nausea or vomiting or diarrhea or f ever or chills or cramps. OBJECTIVE: GENERAL: Well-built male in no apparent distress. VITAL SIGNS: Temperature 99.4, pulse 92, respiratory rate 18, blood pressure 150/89. HEENT: Atraumatic, normocephalic. Oral mucosa is moist. NECK: Supple. CARDIOVASCULAR: S1, S2 heard. Rate and rhythm regular. RESPIRATORY: Clear to auscultation. GASTROINTESTINAL: Abdomen is soft. MUSCULOSKELETAL: No tenderness. No edema. DERMATOLOGIC: No skin rash. NEUROLOGIC: Alert and awake and oriented x3. No focal neurologic deficits. Moving all the extremit ies. PSYCHIATRIC: Mood and affect normal. LABORATORY DATA: Creatinine is 2.8. ASSESSMENT AND PLAN: 1. Acute chronic disease on chronic kidney disease. Renal function is slowly getting better. 2. Hypernatremia. Recommend stopping IV fluids. 3. Urinary obstruction. Follow Urology. 4. Edema. 5. Chronic hypertension. 6. Hyperkalemia, better. 7. If renal function is better, will reduce IV fluids to 50 mL per hour.
--- NOTE | 2018-06-03 13:26 | PRG ---
DATE OF SERVICE: 09/10/2018 SUBJECTIVE: No complaints, slept well last night. OBJECTIVE: VITAL SIGNS: Temperature 98.2, blood pressure 174/92, pulse 91, respiratory rate 18, O2 sat 100% on room air. LUNGS: Chest clear to auscultation. CARDIOVASCULAR: No murmurs. ABDOMEN: Soft, nontender. Left nephrostomy tube draining clear urine. Yoder catheter, blood tinged urine overnight. 600 mL drainage in the left nephrostomy tube. IMPRESSION: Mr. Reji Weaver has metastatic prostate cancer and presented to the hospital in renal failure with creatinine of 9. His creatinine with drainage has now improved to 2.9. He has a right ureteral stent and a left nephrostomy tube - we have lost access to the left ureteral stent. To remove the left nephrostomy tube, antegrade placement of left ureteral stent will need to be scheduled. PLAN: Antegrade placement left ureteral stent by Interventional Radiology. PREET
--- NOTE | 2018-06-03 20:59 | EKG ---
Test Reason : ABNORMAL LABS Blood Pressure : / mmHG Vent. Rate : 101 BPM Atrial Rate : 101 BPM P-R Int : 124 ms QRS Dur : 088 ms QT Int : 376 ms P-R-T Axes : 051 -07 078 degrees QTc Int : 487 ms Sinus tachycardia Possible Left atrial enlargement Borderline ECG Confirmed by ORA LICEA, MC ([id number]), staff editor CARIDAD URIARTE ([id number]) on 06/03/2018 8:59:10 PM Referred By: ORA Confirmed By:MC PAYAN MD
[2018-06-03] MEDS: Atorvastatin Calcium 40 MG TAB PO SCH (21:12)
[2018-06-03] MEDS: cefTRIAXone\\ROCEPHIN 1 GM in Sodium Chloride 0.9% 100 ML IVPB SCH (21:12)
[2018-06-03] MEDS: Melatonin 3 MG TAB PO SCH (21:12)
--- NOTE | 2018-06-03 22:56 | PDOC.PN ---
- Subjective Encounter Start Date: 06/03/18 Encounter Start Time: 13:35 Patient seen and examined. NAD. Patient states that he is tasty and wanted something to drink. - Objective Resuscitation Status: Resuscitation Status FULL:Full Resuscitation MAR Reviewed: Yes Vital Signs & Weight: Vital Signs (12 hours) Temp Pulse Resp BP Pulse Ox 06/03/18 15:40 98 F 94 18 155/82 H 100 Weight Weight 205 lb 7 oz I&O: 06/02/18 06/03/18 06/04/18 06:59 06:59 06:59 Intake Total 4400 3870 1200 Output Total 3575 4325 1225 Balance 825 -455 -25 Result Diagrams: 06/07/18 06:02 06/07/18 06:02 Additional Labs: Accuchecks 06/03/18 06/03/18 06/03/18 21:16 15:35 10:44 POC Glucose 128 H 140 H 181 H 06/03/18 05:28 POC Glucose 128 H Phys Exam - Physical Examination Constitutional: NAD HEENT: PERRLA, moist MMs Neck: no JVD Respiratory: no wheezing, no rales, clear to auscultation bilateral Cardiovascular: RRR, no significant murmur Gastrointestinal: non-tender, no distention Musculoskeletal: pulses present Neurological: non-focal, normal sensation, moves all 4 limbs Dx/Plan (1) Acute on chronic kidney failure Code(s): N17.9 - ACUTE KIDNEY FAILURE, UNSPECIFIED; N18.9 - CHRONIC KIDNEY DISEASE, UNSPECIFIED Status: Acute Comment: due to obstructive uropathy. per nephro, continue hydration. will follow nephro's recs. (2) LISA (acute kidney injury) Code(s): N17.9 - ACUTE KIDNEY FAILURE, UNSPECIFIED Status: Acute Comment: creatinine improving. (3) Bilateral hydronephrosis Code(s): N13.30 - UNSPECIFIED HYDRONEPHROSIS Status: Acute Comment: - s/p left antegrade stents. improving. (4) Prostate cancer Code(s): C61 - MALIGNANT NEOPLASM OF PROSTATE Status: Chronic - Plan * . see above Review of Systems - Review of Systems Constitutional: negative: fever, chills, sweats, weakness, malaise, other Eyes: negative: Pain, Vision Change, Conjunctivae Inflammation, Eyelid Inflammation, Redness, Other ENT: negative: Ear Pain, Ear Discharge, Nose Pain, Nose Discharge, Nose Congestion, Mouth Pain, Mouth Swelling, Throat Pain, Throat Swelling, Other Respiratory: negative: Cough, Dry, Shortness of Breath, Hemoptysis, SOB with Excertion, Pleuritic Pain, Sputum, Wheezing Cardiovascular: negative: chest pain, palpitations, orthopnea, paroxysmal nocturnal dyspnea, edema, light headedness, other Gastrointestinal: negative: Nausea, Vomiting, Abdominal Pain, Diarrhea, Constipation, Melena, Hematochezia, Other Genitourinary: negative: Dysuria, Frequency, Incontinence, Hematuria, Retention , Other Musculoskeletal: negative: Neck Pain, Shoulder Pain, Arm Pain, Back Pain, Hand Pain, Leg Pain, Foot Pain, Other Skin: negative: Rash, Lesions, Deion, Bruising, Other Neurological: negative: Weakness, Numbness, Incoordination, Change in Speech, Confusion, Seizures, Other - Medications/Allergies Allergies/Adverse Reactions: Allergies Allergy/AdvReac Type Severity Reaction Status Date / Time lisinopril Allergy Verified 05/26/18 22:04 Medications: Current Medications Acetaminophen (Tylenol) 650 mg PO Q4H PRN PRN Reason: Headache/Fever or Pain Last Admin: 06/02/18 21:26 Dose: 650 mg Atorvastatin Calcium (Lipitor) 40 mg PO QPM [facility] Last Admin: 06/03/18 21:12 Dose: 40 mg Citalopram Hydrobromide (Celexa) 40 mg PO DAILY [facility] Last Admin: 06/03/18 09:02 Dose: 40 mg Dextrose/Water (Dextrose 50%) 25 gm SLOW IVP PRN PRN PRN Reason: Hypoglycemia Donepezil HCl (Aricept) 10 mg PO DAILY [facility] Last Admin: 06/03/18 09:03 Dose: 10 mg Famotidine (Pepcid) 20 mg PO DAILY [facility] Last Admin: 06/03/18 09:03 Dose: 20 mg Finasteride (Proscar) 5 mg PO DAILY [facility] Last Admin: 06/03/18 09:02 Dose: 5 mg Glucagon (Glucagon) 1 mg IM PRN PRN PRN Reason: Hypoglycemia Ceftriaxone Sodium 1 gm/ (Sodium Chloride) 100 mls @ 200 mls/hr IVPB 2200 [facility] Last Admin: 06/03/18 21:12 Dose: 100 mls Dextrose/Water (D5w) 1,000 mls @ 0 mls/hr IV .Q0M PRN PRN Reason: Hypoglycemia Sodium Chloride (Normal Saline 0.9%) 1,000 mls @ 50 mls/hr IV .Q20H [facility] Last Admin: 06/03/18 15:51 Dose: Not Given Insulin Human Lispro (Humalog) 0 units SC .MODERATE SLIDING SC PRN PRN Reason: Moderate Correctional Scale Last Admin: 06/01/18 12:40 Dose: 2 unit Insulin Human Lispro (Humalog) 0 units SC .BEDTIME SLIDING SC PRN PRN Reason: Bedtime Correctional Scale Melatonin (Melatonin) 3 mg PO HS [facility] Last Admin: 06/03/18 21:12 Dose: 3 mg Ondansetron HCl (Zofran) 4 mg IVP Q6H PRN PRN Reason: Nausea/Vomiting Last Admin: 06/03/18 11:57 Dose: 4 mg Sodium Chloride (Flush - Normal Saline) 10 ml IVF Q12HR [facility] Last Admin: 06/03/18 21:12 Dose: 10 ml Sodium Chloride (Flush - Normal Saline) 10 ml IVF PRN PRN PRN Reason: Saline Flush
[2018-06-04] MEDS: Acetaminophen 325 MG TAB PO PRN (00:12)
[2018-06-04] MEDS: Sodium Chloride 0.9% 1,000 ML IV SCH (00:49)
[2018-06-04 06:55] LABS: Anion Gap 12 mmol/L (10-20); BUN (Urea Nitrogen) 25 mg/dL (8.4-25.7); Calc. Creatinine Clearance 30 mL/min (70-130); Calcium 8.4 mg/dL (7.8-10.44); Carbon Dioxide 23 mmol/L (23-31); Chloride 107 mmol/L (98-107); Estimated GFR-MDRD 28; Glucose 112 mg/dL (83-110); Potassium 3.9 mmol/L (3.5-5.1); Sodium 138 mmol/L (136-145)
[2018-06-04 06:58] LABS: Hemoglobin 7.3 g/dL (14.0-18.0); Mean Corpuscular HGB CONC 33.6 g/dL (32.0-36.0); Mean Corpuscular Hemoglobin 28.3 pg (27.0-31.0); Mean Corpuscular Volume 84.2 fL (78.0-98.0); Mean Platelet Volume 9.2 fL (7.4-10.4); Platelet Count 140 thou/uL (130-400); RBC Distribution Width 13.4 % (11.5-14.5); Red Blood Cell (RBC) Count 2.59 mill/uL (4.70-6.10); White Blood Cell (WBC) Count 12.6 thou/uL (4.8-10.8)
[2018-06-04 08:42] LABS: Hypochromia SLIGHT = 6-15 cells (100X) (0-5/hpf); Lymphocytes 19 % (21-51); MDiff Complete? YES; Microcytosis SLIGHT = 6-15 cells (100X) (0-5/hpf); Monocytes 18 % (0-10); Neutrophil 63 % (42-75); PLT Morphology Comment Appears Adequate
[2018-06-04] MEDS: Finasteride 5 MG TAB PO SCH (08:50)
[2018-06-04] MEDS: Donepezil HCl 10 MG TAB PO SCH (08:50)
[2018-06-04] MEDS: Citalopram 20 MG TAB PO SCH (08:50)
[2018-06-04] MEDS: Famotidine 20 MG TAB PO SCH (08:50)
--- NOTE | 2018-06-04 14:40 | PRG ---
DATE OF SERVICE: 06/04/2018 SUBJECTIVE: Patient was seen and examined at bedside and overnight events noted. Patient denies any shortness of breath or chest pain or palpitation. No history of nausea or vomitin g or diarrhea or fever or chills or cramps. OBJECTIVE: GENERAL: This is well-built male, in no apparent distress. VITAL SIGNS: Temperature 98.5, pulse 92, respiratory rate 16, blood pressure 122/76. HEENT: Atraumatic, normocephalic. Oral mucosa is moist. NECK: Supple. CARDIOVASCULAR: S1 and S2 heard. Rate and rhythm regular. RESPIRATORY: Clear to auscultation. GASTROINTESTINAL: Abdomen is soft. MUSCULOSKELETAL: No tenderness. No edema. DERMATOLOGIC: No skin rash. NEUROLOGIC: Alert and awake and oriented x3. No focal neurologic deficits. Moving all the extremit ies. PSYCHIATRIC: Mood and affect normal. LABORATORY DATA: Potassium 3.9, BUN 25, creatinine is 2.6. ASSESSMENT AND PLAN: 1. Acute kidney injury on chronic kidney disease stage 3. Renal function improving. Creatinine yelena n to 2.6. 2. Hypernatremia, better. 3. Urinary obstruction. Follow with Urology. 4. Edema. 5. Hypertension. 6. Hyperkalemia, better. 7. Labs are showing creatinine getting better. Avoid nephrotoxins. We will follow.
[2018-06-04] MEDS: Atorvastatin Calcium 40 MG TAB PO SCH (20:24)
[2018-06-04] MEDS: Docusate 100 MG CAP PO SCH (20:24)
[2018-06-04] MEDS: Melatonin 3 MG TAB PO SCH (20:24)
--- NOTE | 2018-06-04 20:59 | PDOC.PN ---
- Subjective Encounter Start Date: 06/04/18 Encounter Start Time: 17:30 Lying in bed in NAD. No acute overnight events. - Objective Resuscitation Status: Resuscitation Status FULL:Full Resuscitation MAR Reviewed: Yes Vital Signs & Weight: Vital Signs (12 hours) Temp Pulse Resp BP Pulse Ox 06/04/18 16:15 98.4 F 89 18 160/84 H 100 06/04/18 14:18 98.2 F 99 18 155/89 H 99 Weight Weight 205 lb 7 oz I&O: 06/03/18 06/04/18 06/05/18 06:59 06:59 06:59 Intake Total 3870 3000 700 Output Total 4325 2325 1900 Balance -455 675 -1200 Result Diagrams: 06/04/18 06:34 06/04/18 06:34 Additional Labs: Accuchecks 06/04/18 06/04/18 06/04/18 15:30 11:01 05:42 POC Glucose 127 H 179 H 114 H 06/03/18 21:16 POC Glucose 128 H Phys Exam - Physical Examination Constitutional: NAD HEENT: PERRLA, moist MMs Neck: no JVD Respiratory: no wheezing, no rales, no rhonchi, clear to auscultation bilateral Cardiovascular: RRR, no significant murmur, no rub Gastrointestinal: soft, non-tender Musculoskeletal: no edema, pulses present Neurological: non-focal, normal sensation, moves all 4 limbs Psychiatric: normal affect Dx/Plan (1) Acute blood loss anemia Code(s): D62 - ACUTE POSTHEMORRHAGIC ANEMIA Status: Acute Comment: H/H dropped to 7.3. will monitor very closely. will transfuse when h/h is below 7/ 21 (2) Acute on chronic kidney failure Code(s): N17.9 - ACUTE KIDNEY FAILURE, UNSPECIFIED; N18.9 - CHRONIC KIDNEY DISEASE, UNSPECIFIED Status: Acute Comment: improving. will continue to monitor. (3) Bilateral hydronephrosis Code(s): N13.30 - UNSPECIFIED HYDRONEPHROSIS Status: Acute Comment: - IR to place left antegrade stents. Currently cr is improving well. (4) Prostate cancer Code(s): C61 - MALIGNANT NEOPLASM OF PROSTATE Status: Chronic - Plan * . Review of Systems - Review of Systems Constitutional: negative: fever, chills, sweats, weakness, malaise, other Eyes: negative: Pain, Vision Change, Conjunctivae Inflammation, Eyelid Inflammation, Redness, Other ENT: negative: Ear Pain, Ear Discharge, Nose Pain, Nose Discharge, Nose Congestion, Mouth Pain, Mouth Swelling, Throat Pain, Throat Swelling, Other Respiratory: negative: Cough, Dry, Shortness of Breath, Hemoptysis, SOB with Excertion, Pleuritic Pain, Sputum, Wheezing Cardiovascular: negative: chest pain, palpitations, orthopnea, paroxysmal nocturnal dyspnea, edema, light headedness, other Gastrointestinal: negative: Nausea, Vomiting, Abdominal Pain, Diarrhea, Constipation, Melena, Hematochezia, Other Genitourinary: negative: Dysuria, Frequency, Incontinence, Hematuria, Retention , Other Musculoskeletal: negative: Neck Pain, Shoulder Pain, Arm Pain, Back Pain, Hand Pain, Leg Pain, Foot Pain, Other Skin: negative: Rash, Lesions, Deion, Bruising, Other Neurological: negative: Weakness, Numbness, Incoordination, Change in Speech, Confusion, Seizures, Other - Medications/Allergies Allergies/Adverse Reactions: Allergies Allergy/AdvReac Type Severity Reaction Status Date / Time lisinopril Allergy Verified 05/26/18 22:04 Medications: Current Medications Acetaminophen (Tylenol) 650 mg PO Q4H PRN PRN Reason: Headache/Fever or Pain Last Admin: 06/04/18 00:12 Dose: 650 mg Atorvastatin Calcium (Lipitor) 40 mg PO QPM [facility] Last Admin: 06/04/18 20:24 Dose: 40 mg Citalopram Hydrobromide (Celexa) 40 mg PO DAILY [facility] Last Admin: 06/04/18 08:50 Dose: 40 mg Dextrose/Water (Dextrose 50%) 25 gm SLOW IVP PRN PRN PRN Reason: Hypoglycemia Docusate Sodium (Colace) 100 mg PO BID [facility] Last Admin: 06/04/18 20:24 Dose: 100 mg Donepezil HCl (Aricept) 10 mg PO DAILY [facility] Last Admin: 06/04/18 08:50 Dose: 10 mg Famotidine (Pepcid) 20 mg PO DAILY [facility] Last Admin: 06/04/18 08:50 Dose: 20 mg Finasteride (Proscar) 5 mg PO DAILY [facility] Last Admin: 06/04/18 08:50 Dose: 5 mg Glucagon (Glucagon) 1 mg IM PRN PRN PRN Reason: Hypoglycemia Ceftriaxone Sodium 1 gm/ (Sodium Chloride) 100 mls @ 200 mls/hr IVPB 2200 [facility] Last Admin: 06/03/18 21:12 Dose: 100 mls Dextrose/Water (D5w) 1,000 mls @ 0 mls/hr IV .Q0M PRN PRN Reason: Hypoglycemia Sodium Chloride (Normal Saline 0.9%) 1,000 mls @ 50 mls/hr IV .Q20H [facility] Last Admin: 06/04/18 00:49 Dose: 1,000 mls Insulin Human Lispro (Humalog) 0 units SC .MODERATE SLIDING SC PRN PRN Reason: Moderate Correctional Scale Last Admin: 06/01/18 12:40 Dose: 2 unit Insulin Human Lispro (Humalog) 0 units SC .BEDTIME SLIDING SC PRN PRN Reason: Bedtime Correctional Scale Melatonin (Melatonin) 3 mg PO HS [facility] Last Admin: 06/04/18 20:24 Dose: 3 mg Ondansetron HCl (Zofran) 4 mg IVP Q6H PRN PRN Reason: Nausea/Vomiting Last Admin: 06/03/18 11:57 Dose: 4 mg Sodium Chloride (Flush - Normal Saline) 10 ml IVF Q12HR [facility] Last Admin: 06/04/18 20:24 Dose: Not Given Sodium Chloride (Flush - Normal Saline) 10 ml IVF PRN PRN PRN Reason: Saline Flush
[2018-06-04] MEDS: cefTRIAXone\\ROCEPHIN 1 GM in Sodium Chloride 0.9% 100 ML IVPB SCH (21:34)
--- NOTE | 2018-06-04 22:37 | CON ---
DATE OF CONSULTATION: 06/04/2018 REASON FOR CONSULTATION: Obstructive uropathy with metastatic prostate cancer. BRIEF HISTORY: Mr. Reji Weaver is a pleasant 77-year-old -[place] male who has evident me tastatic prostate cancer and bilateral renal obstruction. The patient has had a presentation of philip l failure with initial presenting creatinine of 9. He underwent Yoder catheter placement and this wa s followed by subsequent cystoscopy which showed no pathway to the patient's kidneys. He underwent b ilateral percutaneous nephrostomy tube placement and currently has a left-sided indwelling percutaneo us nephrostomy tube and a right-sided internalized stent. At the present time, the patient is awaiti ng further internalization of his left percutaneous nephrostomy tube. At the present time, patient i s on observation, probably will undergo either Interventional Radiology procedure or procedure by Dr. Felton, his primary urologist in the coming week. PHYSICAL EXAMINATION: VITAL SIGNS: Temperature is 98.4, pulse 89, respirations 18, O2 saturation on room air is 100% and b lood pressure is 160/84. HEENT: Extraocular movements are intact. Sclerae are anicteric. Oropharynx is clear. NECK: Supple. LUNGS: Clear to auscultation bilaterally. CARDIAC: Regular rate and rhythm. ABDOMEN: Soft and nontender. BACK: Left-sided percutaneous nephrostomy tube is in place and is draining straw-colored urine with a slight pink tinged. ABDOMEN: Soft and nontender. GENITOURINARY: A Yoder catheter is in place. Patient's catheter is draining straw-colored urine wit h a very slight pink tinge to it, consistent with the patient's indwelling stent status. LABORATORY DATA: Patient's white blood cell count today is back up to 12.6 thousand, hemoglobin is 7 .3 with hematocrit of 21.8. Microbiology; patient's urine culture from 05/26/2018 which was a clean catch showed mixed skin evie at less than 10,000 count. ASSESSMENT AND PLAN: 1. Right-sided functioning stent and Yoder catheter drainage for obstruction, no acute intervention is required at this point. 2. Left-sided percutaneous nephrostomy tube. The patient will need to undergo internalization of hi s tube. Percutaneous nephrostomy tubes have ugly habit of falling out at the most convenient time. The patient at present does not seem to have much difficulty with the percutaneous nephrostomy tube, which appears to be draining quite well. He is having large volumes out of PEG tube each day. Plan will be to ultimately internalize that percutaneous nephrostomy tube, so the patient is being managed with bilateral indwelling stents. 3. Prostate cancer with known metastatic disease. Patient has been on Lupron for management as well as finasteride. His prostate cancer was diagnosed in 2016. He has had slow progression with recent PSA of about 19.6 three months ago. The patient's primary issue at this point appears to be renal i nsufficiency associated with ureteral obstruction secondary to probably enlarged lymph nodes in the r etroperitoneum. The patient probably should continue to undergo medical management with Lupron as di rected by Dr. Felton.
[2018-06-05 06:35] LABS: Lymphocytes 37 % (21-51); MDiff Complete? YES; Mean Corpuscular Hemoglobin 28.6 pg (27.0-31.0); Mean Platelet Volume 9.2 fL (7.4-10.4); Monocytes 19 % (0-10); Neutrophil 44 % (42-75); PLT Morphology Comment Appears Adequate; Platelet Count 149 thou/uL (130-400); RBC Distribution Width 13.4 % (11.5-14.5); Red Blood Cell (RBC) Count 2.81 mill/uL (4.70-6.10); White Blood Cell (WBC) Count 9.9 thou/uL (4.8-10.8)
[2018-06-05 06:49] LABS: Anion Gap 12 mmol/L (10-20); BUN (Urea Nitrogen) 23 mg/dL (8.4-25.7); Calc. Creatinine Clearance 33 mL/min (70-130); Carbon Dioxide 24 mmol/L (23-31); Chloride 108 mmol/L (98-107); Estimated GFR-MDRD 31; Potassium 4.1 mmol/L (3.5-5.1); Sodium 140 mmol/L (136-145)
[2018-06-05 07:30] LABS: Glucose 102 mg/dL (83-110)
[2018-06-05] MEDS: Sodium Chloride 0.9% 1,000 ML IV SCH ×2 (07:40→21:31)
[2018-06-05] MEDS: Citalopram 20 MG TAB PO SCH (08:22)
[2018-06-05] MEDS: Docusate 100 MG CAP PO SCH ×2 (08:22→20:20)
[2018-06-05] MEDS: Finasteride 5 MG TAB PO SCH (08:23)
[2018-06-05] MEDS: Famotidine 20 MG TAB PO SCH (08:23)
[2018-06-05] MEDS: Donepezil HCl 10 MG TAB PO SCH (08:23)
--- NOTE | 2018-06-05 12:38 | PRG ---
DATE OF SERVICE: 06/05/2018 SUBJECTIVE: This is a 77-year-old gentleman being seen for acute kidney injury. The patient denies any nausea, vomiting or chest pain. PHYSICAL EXAMINATION: GENERAL: Patient is awake, alert. VITAL SIGNS: Afebrile, pulse 100, breathing 16, blood pressure 124/92. HEAD/NECK: Normocephalic. Atraumatic. EYES: EOMI. No deformity. EARS: Clear. No ulcers. NOSE: Intact. No lesions. MOUTH: Clear. No discharge. THROAT: Clear. No exudate. LUNGS: Clear. No crackles. CARDIAC: S1, S2. No rub. ABDOMEN: Benign. BS+. GENITALIA/RECTUM: Yoder absent. BACK/EXTREMITIES: Edema 0+ Ulcer- NEUROLOGICAL: Alert and motor intact. SKIN: Rash- Bruise- LYMPHATICS: Edema- Ulcer- LABORATORY DATA: Show hemoglobin 8 and creatinine 2.4. ASSESSMENT AND RECOMMENDATIONS: 1. Acute kidney injury, improving. 2. Hypertension, stable. 3. Anemia, stable. 4. Chronic kidney disease stage 3, stable. 5. Obstructive uropathy. Management per Urology.
[2018-06-05] MEDS: HumaLOG 300 UNITS/3 ML VIAL SC PRN (13:02)
[2018-06-05] MEDS ORDERED: Fleet Enema 133 ML BOT FS SCH (16:30)
--- NOTE | 2018-06-05 16:37 | SPC ---
FLUOROSCOPIC GUIDED LEFT URETERAL STENT PLACEMENT ANTEGRADE: 8/13/18 HISTORY: Prostate cancer. Ureteral obstruction. FINDINGS: After explaining the procedure and answering all questions, the external portion of a left percutaneo us nephrostomy was carefully prepped and draped in the usual sterile fashion. Small amount of contras t was carefully injected to confirm position and opacity the renal collecting system. 0.035 stiff Gli dewire was placed to hold position. Old nephrostomy catheter was carefully removed. A 5 Greenlandic Ector tein catheter was then carefully advanced over the Glidewire into the urinary bladder without difficu lty. Berenstein was removed and a 6 Greenlandic double pigtail ureteral stent was placed with distal coil in th e urinary bladder and proximal coil in the renal pelvis. Position was confirmed with fluoroscopy. Zaid dewire was then placed to hold position, and a new 8 Greenlandic locking loop percutaneous nephrostomy cat heter was then placed into the renal pelvis. Position was confirmed with fluoroscopy. Contrast was in jected to confirm stent patency. The percutaneous nephrostomy catheter was secured externally with 0 Silk suture and buffered local an esthesia. The catheter was capped. Patient tolerated the procedure well and was returned in improved condition. IMPRESSION: Technically successful fluoroscopic guided antegrade left ureteral stent placement which was shown to be functioning normally. Replacement of left percutaneous nephrostomy drain. POS: CHELLY
--- NOTE | 2018-06-05 16:54 | PDOC.PN ---
- Subjective Encounter Start Date: 06/05/18 Encounter Start Time: 16:53 Patient seen and examined. NAD - Objective Resuscitation Status: Resuscitation Status FULL:Full Resuscitation MAR Reviewed: Yes Vital Signs & Weight: Vital Signs (12 hours) Temp Pulse Resp BP BP Pulse Ox 06/05/18 15:10 98.7 F 93 18 133/83 99 06/05/18 12:18 98 06/05/18 11:51 98.9 F 114 H 20 152/88 H 95 06/05/18 08:23 98.4 F 100 16 98 06/05/18 07:58 98.4 F 100 16 124/92 H 98 Weight Weight 205 lb 7 oz I&O: 06/04/18 06/05/18 06/06/18 06:59 06:59 06:59 Intake Total 3000 2300 Output Total 2325 4500 Balance 675 -2200 Result Diagrams: 06/05/18 06:10 06/05/18 06:10 Additional Labs: Accuchecks 06/05/18 06/05/18 06/04/18 12:51 05:28 21:12 POC Glucose 164 H 98 122 H Phys Exam - Physical Examination Constitutional: NAD HEENT: PERRLA, moist MMs Neck: no JVD Respiratory: no wheezing, no rales, no rhonchi Cardiovascular: RRR, no significant murmur, no rub Gastrointestinal: soft, non-tender, no distention Has nephrostomy tubes in place draining blood tinged urine Musculoskeletal: no edema, pulses present Neurological: non-focal, moves all 4 limbs Psychiatric: normal affect Skin: no rash Dx/Plan (1) Acute blood loss anemia Code(s): D62 - ACUTE POSTHEMORRHAGIC ANEMIA Status: Acute Comment: H/H dropped to 7.3. will monitor very closely. will transfuse when h/h is below 7/ 21 (2) Acute on chronic kidney failure Code(s): N17.9 - ACUTE KIDNEY FAILURE, UNSPECIFIED; N18.9 - CHRONIC KIDNEY DISEASE, UNSPECIFIED Status: Acute Comment: improving. will continue to monitor. (3) Bilateral hydronephrosis Code(s): N13.30 - UNSPECIFIED HYDRONEPHROSIS Status: Acute Comment: - s/p left antegrade stents. will monitor overnight. (4) Prostate cancer Code(s): C61 - MALIGNANT NEOPLASM OF PROSTATE Status: Chronic - Plan * . Review of Systems - Review of Systems Constitutional: negative: fever, chills, sweats, weakness, malaise, other Eyes: negative: Pain, Vision Change, Conjunctivae Inflammation, Eyelid Inflammation, Redness, Other ENT: negative: Ear Pain, Ear Discharge, Nose Pain, Nose Discharge, Nose Congestion, Mouth Pain, Mouth Swelling, Throat Pain, Throat Swelling, Other Respiratory: negative: Cough, Dry, Shortness of Breath, Hemoptysis, SOB with Excertion, Pleuritic Pain, Sputum, Wheezing Cardiovascular: negative: chest pain, palpitations, orthopnea, paroxysmal nocturnal dyspnea, edema, light headedness, other Gastrointestinal: negative: Nausea, Vomiting, Abdominal Pain, Diarrhea, Constipation, Melena, Hematochezia, Other Genitourinary: negative: Dysuria, Frequency, Incontinence, Hematuria, Retention , Other Musculoskeletal: negative: Neck Pain, Shoulder Pain, Arm Pain, Back Pain, Hand Pain, Leg Pain, Foot Pain, Other Skin: negative: Rash, Lesions, Deion, Bruising, Other Neurological: negative: Weakness, Numbness, Incoordination, Change in Speech, Confusion, Seizures, Other - Medications/Allergies Allergies/Adverse Reactions: Allergies Allergy/AdvReac Type Severity Reaction Status Date / Time lisinopril Allergy Verified 05/26/18 22:04 Medications: Current Medications Acetaminophen (Tylenol) 650 mg PO Q4H PRN PRN Reason: Headache/Fever or Pain Last Admin: 06/04/18 00:12 Dose: 650 mg Atorvastatin Calcium (Lipitor) 40 mg PO QPM [facility] Last Admin: 06/04/18 20:24 Dose: 40 mg Citalopram Hydrobromide (Celexa) 40 mg PO DAILY [facility] Last Admin: 06/05/18 08:22 Dose: 40 mg Dextrose/Water (Dextrose 50%) 25 gm SLOW IVP PRN PRN PRN Reason: Hypoglycemia Docusate Sodium (Colace) 100 mg PO BID [facility] Last Admin: 06/05/18 08:22 Dose: 100 mg Donepezil HCl (Aricept) 10 mg PO DAILY [facility] Last Admin: 06/05/18 08:23 Dose: 10 mg Famotidine (Pepcid) 20 mg PO DAILY [facility] Last Admin: 06/05/18 08:23 Dose: 20 mg Finasteride (Proscar) 5 mg PO DAILY [facility] Last Admin: 06/05/18 08:23 Dose: 5 mg Glucagon (Glucagon) 1 mg IM PRN PRN PRN Reason: Hypoglycemia Ceftriaxone Sodium 1 gm/ (Sodium Chloride) 100 mls @ 200 mls/hr IVPB 2200 [facility] Last Admin: 06/04/18 21:34 Dose: 100 mls Dextrose/Water (D5w) 1,000 mls @ 0 mls/hr IV .Q0M PRN PRN Reason: Hypoglycemia Sodium Chloride (Normal Saline 0.9%) 1,000 mls @ 50 mls/hr IV .Q20H [facility] Last Admin: 06/05/18 07:40 Dose: Not Given Insulin Human Lispro (Humalog) 0 units SC .MODERATE SLIDING SC PRN PRN Reason: Moderate Correctional Scale Last Admin: 06/05/18 13:02 Dose: 2 unit Insulin Human Lispro (Humalog) 0 units SC .BEDTIME SLIDING SC PRN PRN Reason: Bedtime Correctional Scale Melatonin (Melatonin) 3 mg PO HS [facility] Last Admin: 06/04/18 20:24 Dose: 3 mg Ondansetron HCl (Zofran) 4 mg IVP Q6H PRN PRN Reason: Nausea/Vomiting Last Admin: 06/03/18 11:57 Dose: 4 mg Sodium Biphosphate/Sodium Phosphate (Fleet Enema) 133 ml FS NOW [facility] Stop: 06/05/18 18:00 Sodium Chloride (Flush - Normal Saline) 10 ml IVF Q12HR [facility] Last Admin: 06/05/18 08:23 Dose: 10 ml Sodium Chloride (Flush - Normal Saline) 10 ml IVF PRN PRN PRN Reason: Saline Flush
[2018-06-05] MEDS: Atorvastatin Calcium 40 MG TAB PO SCH (20:20)
[2018-06-05] MEDS: Melatonin 3 MG TAB PO SCH (20:21)
[2018-06-05] MEDS: cefTRIAXone\\ROCEPHIN 1 GM in Sodium Chloride 0.9% 100 ML IVPB SCH (21:31)
[2018-06-06 06:31] LABS: Anion Gap 14 mmol/L (10-20); BUN (Urea Nitrogen) 24 mg/dL (8.4-25.7); Calc. Creatinine Clearance 30 mL/min (70-130); Calcium 9.3 mg/dL (7.8-10.44); Carbon Dioxide 22 mmol/L (23-31); Chloride 109 mmol/L (98-107); Estimated GFR-MDRD 28; Glucose 118 mg/dL (83-110); Potassium 3.7 mmol/L (3.5-5.1); Sodium 141 mmol/L (136-145)
[2018-06-06 06:41] LABS: Mean Corpuscular HGB CONC 33.6 g/dL (32.0-36.0); Mean Corpuscular Hemoglobin 28.2 pg (27.0-31.0); Mean Corpuscular Volume 84.1 fL (78.0-98.0); Platelet Count 158 thou/uL (130-400); RBC Distribution Width 13.6 % (11.5-14.5); Red Blood Cell (RBC) Count 2.83 mill/uL (4.70-6.10); White Blood Cell (WBC) Count 10.7 thou/uL (4.8-10.8)
[2018-06-06 08:22] LABS: Band 1 % (5-11); Eosinophils 1 % (0-10); Lymphocytes 28 % (21-51); MDiff Complete? YES; Monocytes 14 % (0-10); Neutrophil 56 % (42-75); PLT Morphology Comment Appears Adequate; Polychromasia SLIGHT = 2-3 cells (100X) (0-2/hpf)
--- NOTE | 2018-06-06 08:57 | PRG ---
DATE OF SERVICE: 06/06/2018 SUBJECTIVE: This is a 77-year-old gentleman being seen for acute kidney injury. The patient denies any nausea, vomiting or chest pain. PHYSICAL EXAMINATION: GENERAL: Patient is awake, alert. VITAL SIGNS: Afebrile, pulse 90, breathing at 16, blood pressure 125/81. OBJECTIVE: See above. Awake, alert, in no acute distress. GENERAL APPEARANCE AND MENTAL STATUS: Fair. HEAD/NECK: Normocephalic. Atraumatic. EYES: EOMI. No deformity. EARS: Clear. No ulcers. NOSE: Intact. No lesions. MOUTH: Clear. No discharge. THROAT: Clear. No exudate. LUNGS: Clear. No crackles. CARDIAC: S1, S2. No rub. ABDOMEN: Benign. BS+. GENITALIA/RECTUM: Yoder absent. BACK/EXTREMITIES: Edema 0+ Ulcer- NEUROLOGICAL: Alert and motor intact. SKIN: Rash- Bruise- LYMPHATICS: Edema- Ulcer- LABORATORY: Hemoglobin 8, creatinine 2.6. ASSESSMENT AND RECOMMENDATIONS: 1. Acute kidney injury with chronic kidney disease, most likely due to obstructive uropathy. Contin ue hydration. 2. Hypertension, stable. 3. Anemia, stable. 4. Hyperkalemia, stable. No indication for dialysis at this time.
[2018-06-06] MEDS: Donepezil HCl 10 MG TAB PO SCH (09:50)
[2018-06-06] MEDS: Famotidine 20 MG TAB PO SCH (09:50)
[2018-06-06] MEDS: Finasteride 5 MG TAB PO SCH (09:50)
[2018-06-06] MEDS: Citalopram 20 MG TAB PO SCH (09:50)
[2018-06-06] MEDS: Docusate 100 MG CAP PO SCH ×2 (09:51→22:35)
[2018-06-06 11:22] VITALS: BMI 29.5
[2018-06-06] MEDS: HumaLOG 300 UNITS/3 ML VIAL SC PRN (18:39)
[2018-06-06] MEDS: Sodium Chloride 0.9% 1,000 ML IV SCH (19:11)
[2018-06-06] MEDS: Melatonin 3 MG TAB PO SCH (22:32)
[2018-06-06] MEDS: Atorvastatin Calcium 40 MG TAB PO SCH (22:34)
[2018-06-06] MEDS: Acetaminophen 325 MG TAB PO PRN (22:35)
--- NOTE | 2018-06-06 22:59 | PDOC.PN ---
- Subjective Encounter Start Date: 06/06/18 Encounter Start Time: 11:00 Patient seen and examined. Patient is walking with a walker in his room. No Acute distress. - Objective Resuscitation Status: Resuscitation Status FULL:Full Resuscitation MAR Reviewed: Yes Vital Signs & Weight: Vital Signs (12 hours) Temp Pulse Resp BP Pulse Ox 06/06/18 20:32 99.9 F H 92 16 146/79 H 100 06/06/18 15:39 98.1 F 95 18 131/73 99 06/06/18 11:10 98.5 F 88 18 129/77 95 Weight Admit Weight 205 lb 6.992 oz Weight 205 lb 6.992 oz I&O: 06/05/18 06/06/18 06/07/18 06:59 06:59 06:59 Intake Total 2300 2800 Output Total 4500 3200 0 Balance -2199 -400 -2049 Result Diagrams: 06/06/18 05:54 06/06/18 05:54 Additional Labs: Accuchecks 06/06/18 06/06/18 06/06/18 21:04 16:18 11:12 POC Glucose 132 H 153 H 138 H 06/06/18 05:19 POC Glucose 117 H Phys Exam - Physical Examination Constitutional: NAD HEENT: PERRLA, moist MMs Neck: no JVD, supple Respiratory: no wheezing, no rales, no rhonchi, clear to auscultation bilateral Cardiovascular: RRR, no significant murmur, no rub Gastrointestinal: non-tender Musculoskeletal: no edema, pulses present Neurological: non-focal, normal sensation, moves all 4 limbs Psychiatric: normal affect Skin: no rash Dx/Plan (1) Acute blood loss anemia Code(s): D62 - ACUTE POSTHEMORRHAGIC ANEMIA Status: Acute Comment: stable at this time. will continue current management. (2) Acute on chronic kidney failure Code(s): N17.9 - ACUTE KIDNEY FAILURE, UNSPECIFIED; N18.9 - CHRONIC KIDNEY DISEASE, UNSPECIFIED Status: Acute Comment: due to obstructive uropathy. per nephro, continue hydration. will follow nephro's recs. (3) Bilateral hydronephrosis Code(s): N13.30 - UNSPECIFIED HYDRONEPHROSIS Status: Acute Comment: - s/p left antegrade stents. improving. (4) Prostate cancer Code(s): C61 - MALIGNANT NEOPLASM OF PROSTATE Status: Chronic - Plan * . Review of Systems - Review of Systems Constitutional: negative: fever, chills, sweats, weakness, malaise, other Eyes: negative: Pain, Vision Change, Conjunctivae Inflammation, Eyelid Inflammation, Redness, Other ENT: negative: Ear Pain, Ear Discharge, Nose Pain, Nose Discharge, Nose Congestion, Mouth Pain, Mouth Swelling, Throat Pain, Throat Swelling, Other Respiratory: negative: Cough, Dry, Shortness of Breath, Hemoptysis, SOB with Excertion, Pleuritic Pain, Sputum, Wheezing Cardiovascular: negative: chest pain, palpitations, orthopnea, paroxysmal nocturnal dyspnea, edema, light headedness, other Gastrointestinal: negative: Nausea, Vomiting, Abdominal Pain, Diarrhea, Constipation, Melena, Hematochezia, Other Genitourinary: negative: Dysuria, Frequency, Incontinence, Hematuria, Retention , Other Musculoskeletal: negative: Neck Pain, Shoulder Pain, Arm Pain, Back Pain, Hand Pain, Leg Pain, Foot Pain, Other Skin: negative: Rash, Lesions, Deion, Bruising, Other Neurological: negative: Weakness, Numbness, Incoordination, Change in Speech, Confusion, Seizures, Other - Medications/Allergies Allergies/Adverse Reactions: Allergies Allergy/AdvReac Type Severity Reaction Status Date / Time lisinopril Allergy Verified 05/26/18 22:04 Medications: Current Medications Acetaminophen (Tylenol) 650 mg PO Q4H PRN PRN Reason: Headache/Fever or Pain Last Admin: 06/06/18 22:35 Dose: 650 mg Atorvastatin Calcium (Lipitor) 40 mg PO QPM [facility] Last Admin: 06/06/18 22:34 Dose: 40 mg Citalopram Hydrobromide (Celexa) 40 mg PO DAILY [facility] Last Admin: 06/06/18 09:50 Dose: 40 mg Dextrose/Water (Dextrose 50%) 25 gm SLOW IVP PRN PRN PRN Reason: Hypoglycemia Docusate Sodium (Colace) 100 mg PO BID [facility] Last Admin: 06/06/18 22:35 Dose: 100 mg Donepezil HCl (Aricept) 10 mg PO DAILY [facility] Last Admin: 06/06/18 09:50 Dose: 10 mg Famotidine (Pepcid) 20 mg PO DAILY [facility] Last Admin: 06/06/18 09:50 Dose: 20 mg Finasteride (Proscar) 5 mg PO DAILY [facility] Last Admin: 06/06/18 09:50 Dose: 5 mg Glucagon (Glucagon) 1 mg IM PRN PRN PRN Reason: Hypoglycemia Dextrose/Water (D5w) 1,000 mls @ 0 mls/hr IV .Q0M PRN PRN Reason: Hypoglycemia Sodium Chloride (Normal Saline 0.9%) 1,000 mls @ 50 mls/hr IV .Q20H [facility] Last Admin: 06/06/18 19:11 Dose: Not Given Insulin Human Lispro (Humalog) 0 units SC .MODERATE SLIDING SC PRN PRN Reason: Moderate Correctional Scale Last Admin: 06/06/18 18:39 Dose: 2 unit Insulin Human Lispro (Humalog) 0 units SC .BEDTIME SLIDING SC PRN PRN Reason: Bedtime Correctional Scale Melatonin (Melatonin) 3 mg PO HS [facility] Last Admin: 06/06/18 22:32 Dose: 3 mg Ondansetron HCl (Zofran) 4 mg IVP Q6H PRN PRN Reason: Nausea/Vomiting Last Admin: 06/03/18 11:57 Dose: 4 mg Sodium Chloride (Flush - Normal Saline) 10 ml IVF Q12HR [facility] Last Admin: 06/06/18 09:51 Dose: Not Given Sodium Chloride (Flush - Normal Saline) 10 ml IVF PRN PRN PRN Reason: Saline Flush
[2018-06-07 06:32] LABS: Anion Gap 15 mmol/L (10-20); BUN (Urea Nitrogen) 24 mg/dL (8.4-25.7); Calc. Creatinine Clearance 32 mL/min (70-130); Calcium 8.9 mg/dL (7.8-10.44); Carbon Dioxide 20 mmol/L (23-31); Chloride 109 mmol/L (98-107); Estimated GFR-MDRD 30; Glucose 102 mg/dL (83-110); Potassium 3.6 mmol/L (3.5-5.1); Sodium 140 mmol/L (136-145)
[2018-06-07 06:38] LABS: Hemoglobin 8.7 g/dL (14.0-18.0); Mean Corpuscular HGB CONC 33.5 g/dL (32.0-36.0); Mean Corpuscular Hemoglobin 28.2 pg (27.0-31.0); Mean Corpuscular Volume 84.2 fL (78.0-98.0); RBC Distribution Width 13.6 % (11.5-14.5); Red Blood Cell (RBC) Count 3.07 mill/uL (4.70-6.10); White Blood Cell (WBC) Count 10.5 thou/uL (4.8-10.8)
[2018-06-07 06:39] LABS: Lymphocytes 23 % (21-51); MDiff Complete? YES; Mean Platelet Volume 9.4 fL (7.4-10.4); Monocytes 14 % (0-10); Neutrophil 63 % (42-75); PLT Morphology Comment Appears Adequate; Platelet Count 138 thou/uL (130-400)
[2018-06-07] MEDS: Donepezil HCl 10 MG TAB PO SCH (09:59)
[2018-06-07] MEDS: Citalopram 20 MG TAB PO SCH (09:59)
[2018-06-07] MEDS: Finasteride 5 MG TAB PO SCH (09:59)
[2018-06-07] MEDS: Docusate 100 MG CAP PO SCH (09:59)
[2018-06-07] MEDS: Famotidine 20 MG TAB PO SCH (09:59)
--- NOTE | 2018-06-07 10:39 | PRG ---
DATE OF SERVICE: 06/07/2018. SUBJECTIVE: This is a 77-year-old gentleman being seen for acute kidney injury. The patient denies any nausea, vomiting or chest pain. OBJECTIVE: GENERAL: Patient is awake, alert. VITAL SIGNS: Afebrile, pulse 100, breathing at 16, blood pressure 127/71. GENERAL APPEARANCE AND MENTAL STATUS: Fair. HEAD/NECK: Normocephalic. Atraumatic. EYES: EOMI. No deformity. EARS: Clear. No ulcers. NOSE: Intact. No lesions. MOUTH: Clear. No discharge. THROAT: Clear. No exudate. LUNGS: Clear. No crackles. CARDIAC: S1, S2. No rub. ABDOMEN: Benign. BS+. GENITALIA/RECTUM: Yoder absent. BACK/EXTREMITIES: Edema 0+ Ulcer-. NEUROLOGICAL: Alert and motor intact. SKIN: Rash- Bruise- LYMPHATICS: Edema- Ulcer-. LABORATORY DATA: Show hemoglobin 8.7, potassium 3.6, creatinine 2.5. ASSESSMENT AND PLAN: 1. Acute kidney injury with chronic kidney disease stage 3, stable. 2. Hypertension, stable. 3. Anemia, stable. 4. Metabolic acidosis, stable. No indication for dialysis. The patient will follow up to see me in 1 week.
--- NOTE | 2018-06-07 13:33 | SPC ---
LEFT NEPHROSTOMY TUBE REMOVAL: DATE: 06/07/18. 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 The patient had bilateral percutaneous nephrostomy tubes placed on 05/26/18, then subsequent bilateral ureteral stent placement, then removal of right nephrostomy tube. TECHNIQUE: Signed proxy informed consent obtained. Patient placed prone on special procedures table. The exist ing left percutaneous nephrostomy tube, and the surrounding the skin, were prepped and draped in the usual sterile fashion. The procedure was performed under intermittent fluoroscopy. The suture was c ut and removed. The existing nephrostomy tube was cut with sterile scissors. 0.035-inch angled Glid ewire was advanced through the nephrostomy tube, and wire loops were formed in the left renal collect ing system. The nephrostomy tube was removed over the guidewire. The guidewire was removed. The ex isting left ureteral stent was left undisturbed from its position. The patient tolerated the procedu re well. No complications. IMPRESSION: Successful removal of left percutaneous nephrostomy tube. POS: CHELLY
[2018-06-07 15:53] VITALS: BP 160/90; TEMP 97.7
--- NOTE | 2018-06-07 23:50 | DIS ---
On the day of discharge, the patient was seen and examined by me. I spoke to the patient's sister. The patient is doing well, tolerating his diet, lying in bed comfortably, does not appear to be in any acute distress. The [facility] [place]. DISCHARGE SUMMARY: Kindly refer to the discharge summary on 06/01/2018, the discharge summary has already been dictated on 06/01/2018. After 06/01/2018, patient's stents that were placed was dislodged, patient received nephrostomy tube and IR (interventional radiologist) had to go back and replace the left ureteral stents and nephrostomy tubes were removed after successful stents were placed. patient has Yoder in place. The patient is going to be [facility] with a Yoder and they are going to manage the Yoder from there. Patient has been started on Flomax to help the patient with voiding. Urology has been made aware and they will follow up with the patient in [facility] facility. For a full discharge summary, kindly refer to the discharge summary for 06/01/2018. Discharge encounter lasted for 40 mins. PREET
== END 2018-06-07 18:11 | DRG 982 ==
LOC: ERS 10:16 → ERHOLD 14:48 → SURG A 17:25
PROVIDERS: ADMIT Internal Medicine; ATTEND Internal Medicine
PROC: 0T9B80Z Drainage of Bladder with Drainage Device, Via Natural or Artificial Opening Endoscopic (ICD-10-PCS; principal; 2018-05-26)
PROC: 0T9130Z Drainage of Left Kidney with Drainage Device, Percutaneous Approach (ICD-10-PCS; 2018-05-29)
PROC: 0T9030Z Drainage of Right Kidney with Drainage Device, Percutaneous Approach (ICD-10-PCS; 2018-05-29)
PROC: 0T788DZ Dilation of Bilateral Ureters with Intraluminal Device, Via Natural or Artificial Opening Endoscopic (ICD-10-PCS; 2018-05-31)
PROC: 0TP530Z Removal of Drainage Device from Kidney, Percutaneous Approach (ICD-10-PCS; 2018-05-31)
PROC: 0TJ98ZZ Inspection of Ureter, Via Natural or Artificial Opening Endoscopic (ICD-10-PCS; 2018-06-02)
PROC: 0T778DZ Dilation of Left Ureter with Intraluminal Device, Via Natural or Artificial Opening Endoscopic (ICD-10-PCS; 2018-06-05)
PROC: 0TP530Z Removal of Drainage Device from Kidney, Percutaneous Approach (ICD-10-PCS; 2018-06-07)
DX: C79.82 Secondary malignant neoplasm of genital organs (principal); N17.9 Acute kidney failure, unspecified; E87.1 Hypo-osmolality and hyponatremia; E87.2 Acidosis; E87.0 Hyperosmolality and hypernatremia; D62 Acute posthemorrhagic anemia; N13.1 Hydronephrosis with ureteral stricture, not elsewhere classified; N02.9 Recurrent and persistent hematuria with unspecified morphologic changes; Z79.4 Long term (current) use of insulin; Z88.8 Allergy status to other drugs, medicaments and biological substances; Z86.73 Personal history of transient ischemic attack (TIA), and cerebral infarction without residual deficits; N40.1 Benign prostatic hyperplasia with lower urinary tract symptoms; I12.9 Hypertensive chronic kidney disease with stage 1 through stage 4 chronic kidney disease, or unspecified chronic kidney disease; E11.22 Type 2 diabetes mellitus with diabetic chronic kidney disease; D63.1 Anemia in chronic kidney disease; E87.5 Hyperkalemia; N18.3 Chronic kidney disease, stage 3 (moderate); Z51.5 Encounter for palliative care; G30.9 Alzheimer's disease, unspecified; F02.80 Dementia in other diseases classified elsewhere, unspecified severity, without behavioral disturbance, psychotic disturbance, mood disturbance, and anxiety
CPT/HCPCS: 36415; 36416; 36430; 50430; 50431; 50432; 50433; 50435; 71045; 74176; 74420; 75984; 77002; 80048; 80053; 81003; 81015; 82550; 82553; 83690; 83735; 83880; 84153; 84484; 85018; 85025; 85610; 85730; 86850; 86900; 86901; 87086; 93005; 96361; 96374; A4216; C1725; C1729; C1758; C1769; G8978-GP-CM; G8979-GP-CK; G8987-GO-CM; G8988-GO-CJ; G8996-GN-CL; G8997-GN-CK; J0696; J1100; J1815; J1956; J2250; J2405; J2550; J2704; J3010; J7050; P9016; Q9961

== ENCOUNTER 2018-06-10 08:50 | Emergency (ER) | payer OTHER ==
--- NOTE | 2018-06-10 10:56 | CT ---
CT BRAIN: Date: 06/10/18 HISTORY: Fall. Complaining of pain. FINDINGS: Comparison made to previous exam from 05/18/18. Noncontrast enhanced CT images of the brain demonstrate diffuse cortical atrophy and deep white matte r ischemic changes. No evidence of intracranial masses, hemorrhages, strokes, or contusions seen. The ventricles are of normal size considering the degree of cortical atrophy. IMPRESSION: Cortical atrophy and deep white matter ischemic changes. POS: CHELLY
--- NOTE | 2018-06-10 10:57 | CT ---
NONCONTRAST ENHANCED CT CERVICAL SPINE: Date: 06/10/18 HISTORY: Trauma. Fall. Neck pain. FINDINGS: Noncontrast enhanced CT images of cervical spine demonstrate multilevel cervical degenerative changes with anterior and posterior osteophytes at all of the cervical spine levels. No evidence of acute ce rvical spine fractures or subluxations seen. IMPRESSION: Multilevel cervical degenerative changes with no evidence of acute cervical spine abnormalities seen. POS: CHELLY
== END 2018-06-10 10:18 | disposition home or self-care (01) ==
LOC: ERS 08:50
DX: M79.1 Myalgia (principal); N40.0 Benign prostatic hyperplasia without lower urinary tract symptoms; E11.9 Type 2 diabetes mellitus without complications; I10 Essential (primary) hypertension; G30.9 Alzheimer's disease, unspecified; F02.80 Dementia in other diseases classified elsewhere, unspecified severity, without behavioral disturbance, psychotic disturbance, mood disturbance, and anxiety; Z79.899 Other long term (current) drug therapy; Z79.4 Long term (current) use of insulin
CPT/HCPCS: 70450; 72125; 93005

== ENCOUNTER 2018-06-25 17:25 | Inpatient (IN) | payer OTHER ==
[2018-06-25 17:55] LABS: Hemoglobin 9.1 g/dL (14.0-18.0); Mean Corpuscular HGB CONC 32.5 g/dL (32.0-36.0); Mean Corpuscular Volume 83.1 fL (78.0-98.0); Mean Platelet Volume 8.7 fL (7.4-10.4); Platelet Count 148 thou/uL (130-400); RBC Distribution Width 13.1 % (11.5-14.5); Red Blood Cell (RBC) Count 3.38 mill/uL (4.70-6.10); White Blood Cell (WBC) Count 23.3 thou/uL (4.8-10.8)
[2018-06-25 18:02] LABS: INR-International Normal Ratio 1.2; PTT 34.6 SEC (22.9-36.1); Prothrombin Time 14.9 SEC (12.0-14.7)
[2018-06-25 18:04] LABS: Bicarbonate (HCO3v) 20.7 mmol/L (1.0-85.0); CO2 Tension (PvCO2) 31.3 mmHg (41.0-51.0); Calcium, Ionized 1.13 mmol/L (1.12-1.32); O2 Tension (PvO2) 32.5 mmHg (35.0-45.0); Potassium 4.1 mmol/L (3.4-4.7); T. Carbon Dioxide 21.6 mmol/L (1.0-85.0); pH (Venous) 7.428 (7.35-7.45); vO2 Saturation-calc 65.5 % (94-98)
[2018-06-25 18:05] LABS: Bilirubin Negative (Negative); Blood, Urine Large (Negative); Glucose, Urine (Dipstick) Negative (Negative); Leukocyte Moderate (Negative); Nitrite Negative (Negative); Protein, Urine (Dipstick) 100 mg/dL (Neg-Trace); Specific Gravity, Urine 1.015 (1.005-1.030); Urobilinogen 0.2 mg/dL (0.2-1.0)
[2018-06-25 18:06] LABS: Clarity CLOUDY (Clear)
[2018-06-25 18:11] LABS: Bacteria/HPF 4+ HPF (None Seen); Hyaline Casts/LPF NONE SEEN LPF (0-3 Hyaline); Renal Epithelial 0-3 HPF (0-3); Transitional Epithelial 0-3 HPF (0-3)
[2018-06-25 18:12] LABS: Band 5 % (5-11); Lymphocytes 4 % (21-51); MDiff Complete? YES; Monocytes 13 % (0-10); Neutrophil 78 % (42-75); PLT Morphology Comment Appears Adequate
[2018-06-25 18:19] LABS: Acetaminophen Less than 6.0 mcg/mL (10.0-30.0); Alcohol Less than 10 mg/dL (Less than 10); Salicylate Less than 8.0 mg/dL (15.0-30.0)
[2018-06-25 18:24] LABS: ALT (SGPT) 18 U/L (8-55); AST (SGOT) 25 U/L (5-34); Albumin 3.9 g/dL (3.4-4.8); Alkaline Phosphatase 99 U/L (40-150); Anion Gap 15 mmol/L (10-20); BUN (Urea Nitrogen) 26 mg/dL (8.4-25.7); Bilirubin, Total 0.8 mg/dL (0.2-1.2); Calc. Creatinine Clearance 0 mL/min (70-130); Carbon Dioxide 21 mmol/L (23-31); Chloride 99 mmol/L (98-107); Estimated GFR-MDRD 35; Globulin 3.9 g/dL (2.4-3.5); Glucose 173 mg/dL (83-110); Potassium 4.2 mmol/L (3.5-5.1); Protein, Total 7.8 g/dL (5.8-8.1); Sodium 131 mmol/L (136-145); Troponin I Less than 0.010 ng/mL (< 0.028)
[2018-06-25] MEDS ORDERED: Acetaminophen 1,000 MG in Premix Bag 1 BAG IVPB SCH (18:30)
--- NOTE | 2018-06-25 19:06 | RAD ---
RADIOGRAPH CHEST 1 VIEW: HISTORY: 77-year-old male with fever. FINDINGS: There are no air space densities, pulmonary edema, pneumothorax, or cardiomegaly. The lateral costop hrenic angles are sharp. IMPRESSION: No acute cardiopulmonary findings. cecy POS: CHELLY
[2018-06-25] MEDS ORDERED: Cefepime 2 GM VIAL ONE (19:10)
[2018-06-25] MEDS ORDERED: Heparin 10,000 UNITS/ 10 ML VIAL ONE (19:55)
--- NOTE | 2018-06-25 20:07 | CT ---
CT BRAIN NONCONTRAST: DATE: 06-25-18 TIME: 6:09 P.M. HISTORY: 77-year-old male assess post acute head trauma due to fall. Altered mental status and fever. COMPARISON: 06-10-18 FINDINGS: There is moderate dilation of the lateral and third ventricles. Fourth ventricle is at the upper limi ts of normal in size. There are severe chronic ischemic white matter changes in the cerebrum bilatera lly. Multiple tiny old lacunar infarctions in the bilateral basal ganglia, internal and external caps ules. No mass effect, midline shift, acute intra or extraaxial hemorrhage, or any extraaxial fluid co llection. No calvarial fracture. No internal change overall. Paranasal sinuses and bilateral tempanom astoid cavities are grossly clear. IMPRESSION: 1. No acute intracranial findings. 2. Brain atrophy and severe chronic ischemic white matter changes. 3. Ventriculomegaly. 4. Multiple tiny old lacunar infarctions in the bilateral basal ganglia 5. No interval change from 06-10-18. MANAN Chang POS: CHELLY
--- NOTE | 2018-06-25 20:10 | CT ---
CT CERVICAL SPINE NONCONTRAST: HISTORY: 77-year-old male status post acute cervical trauma from fall. FINDINGS: There are no jumped or perched facets. There is no evidence of acute fracture. The vertebral body h eights are maintained. There is no prevertebral soft tissue swelling. There are bulky anterior, flow ing, bridging osteophytes protruding into the prevertebral space throughout most levels of the cervic al spine and cervicothoracic junction, consistent with DISH. There is loss of lordosis. These osteoph ytes encroach upon the hypopharnyx, and distort the larynx. This could result in dysphagia. IMPRESSION: 1. No evidence of acute fracture or acute traumatic subluxation. 2. DISH (diffuse idiopathic skeletal hyperostosis) cecy POS: CHELLY
[2018-06-25 21:41] LABS: Lactic Acid 1.1 mmol/L (0.5-2.2)
[2018-06-25 21:49] LABS: Troponin I 0.013 ng/mL (< 0.028)
[2018-06-25] MEDS ORDERED: Ondansetron HCl/PF 4 MG/2 ML Vial IVP PRN (21:56)
[2018-06-25] MEDS ORDERED: Ondansetron ODT 4 MG TAB SL PRN (21:56)
[2018-06-25 22:23] VITALS: BMI 28.8
[2018-06-25] MEDS ORDERED: Dextrose 5% in Water 1,000 ML IV PRN (23:36)
[2018-06-25] MEDS ORDERED: Dextrose 50% Abboject 50 ML SYRINGE IVP PRN (23:36)
[2018-06-25] MEDS ORDERED: Insulin Regular 300 UNITS/3 ML VIAL SC PRN (23:36)
[2018-06-26] MEDS ORDERED: Acetaminophen 325 MG TAB PO PRN (00:16)
[2018-06-26] MEDS ORDERED: HumaLOG 300 UNITS/3 ML VIAL SC PRN ×2 (00:20→00:21)
[2018-06-26] MEDS ORDERED: Dextrose 5% in Water 1,000 ML IV PRN (00:20)
[2018-06-26] MEDS ORDERED: Dextrose 50% Abboject 50 ML SYRINGE IVP PRN (00:20)
[2018-06-26] MEDS: Sodium Chloride 0.9% 1,000 ML IV SCH ×2 (00:53→12:15)
[2018-06-26 01:13] LABS: Troponin I 0.015 ng/mL (< 0.028)
--- NOTE | 2018-06-26 05:25 | HP ---
DATE OF ADMISSION: 06/25/2018 REASON FOR ADMISSION AND CHIEF COMPLAINT: Status post fall. HISTORY OF PRESENT ILLNESS: Mr. Weaver is a 77-year-old -[place]er male with past medical history of chronic kidney disease and obstructive uropathy, was found on the floor by the senior care staff at [facility]. The patient was also found to have fever and he was tachycardic and not breathing well. The senior care staff said he did not have any obvious injuries, and he was responsive to verbal commands. He did not complain of any chest pain or shortness of breath. The patient was transferred to the hospital, because of his fever, tachycardia, and a fall. In the ER, the patient was evaluated and found to have acute kidney injury along with possible sepsis due to urinary tract infection. The patient was not hypoxic or hypotensive in the ER, there he had temperature 102.3 in the ER and heart rate of 120. The patient received vancomycin, cefepime, and Levaquin and he is being admitted for further evaluation and management. The patient is unable to give any history, because of his dementia. PAST MEDICAL HISTORY: 1. History of prostate cancer. 2. Obstructive uropathy with hydronephrosis. 3. Diabetes mellitus, type 2. 4. Hypertension. 5. Dementia. 6. Gastroesophageal reflux disease. 7. Anemia. PAST SURGICAL HISTORY: Status post appendectomy and status post stent placement in the ureters. CURRENT MEDICATIONS: The patient is on Aricept 10 mg daily, Celexa 40 mg daily , Feosol 1 b.i.d., melatonin 3 mg daily, also on sliding scale, simvastatin, and terazosin. The patient is on Flomax 0.4 mg daily and Zocor 80 mg daily. ALLERGIES: LISINOPRIL. FAMILY HISTORY: Nothing of interest. SOCIAL HISTORY: Patient lives in [facility]. No history of smoking. No history of alcohol intake. REVIEW OF SYSTEMS: Unable to obtain, because of patient is not communicative. He has dementia. PHYSICAL EXAMINATION: GENERAL: The patient is alert, awake, not well oriented. VITAL SIGNS: Temperature 102.3, pulse 120, respirations 24, blood pressure 120/ 60. HEENT: Head is normocephalic and atraumatic. Pupils are equal and reactive to light. Nasopharynx is pale and dry. Hard and soft palate, no lesions seen. SKIN: Skin turgor decreased. NECK: Supple. No JVD. LUNGS: Bilateral air entry present, no rales, no rhonchi. HEART: S1 and S2, regular. ABDOMEN: Soft, no tenderness, no distention. No organomegaly. Bowel sounds present. RECTAL: Deferred. CENTRAL NERVOUS SYSTEM: No focal deficits. EXTREMITIES: No edema. LABORATORY AND X-RAY FINDINGS: CBC shows WBC 24,000, hemoglobin 9, hematocrit 28, platelets 148. Prothrombin time 14, INR 1.2. Metabolic panel: Sodium 139 , potassium 4.1, chloride 101, CO2 of 21, BUN 26, creatinine 2.2, glucose 173. ABG showed pH 7.42, pCO2 of 31, pO2 of 65, saturation 97%. Urinalysis revealed wbc too many to count, bacteria 4+, leukocyte esterase moderate. Chest x-ray, no acute cardiopulmonary findings. EKG shows sinus tachycardia, no acute ST-T wave changes seen. ASSESSMENT: 1. Possible sepsis due to urinary tract infection. 2. Leukocytosis and fever, rule out sepsis. 3. History of obstructive uropathy. 4. Diabetes mellitus. 5. Hypertension. 6. History of prostate cancer. 7. Dementia. PLAN: 1. Vital signs q.4 hours. 2. Activity: As tolerated. 3. IV fluids: Normal saline at 80 mL per hour. 4. Levaquin 750 mg IV piggyback daily. 5. Diet: Regular. 6. Allergies: LISINOPRIL. 7. Rocephin 2 grams IV piggyback daily. 8. Continue senior care medication. 9. Accu-Chek a.c. and at bedtime, sliding scale mild with regular insulin. 10. Repeat CBC and basic metabolic panel in the morning. 11. Consult Dr. Castro. PREET
[2018-06-26 05:49] LABS: Anion Gap 14 mmol/L (10-20); BUN (Urea Nitrogen) 24 mg/dL (8.4-25.7); Calc. Creatinine Clearance 37 mL/min (70-130); Calcium 8.7 mg/dL (7.8-10.44); Carbon Dioxide 18 mmol/L (23-31); Chloride 105 mmol/L (98-107); Estimated GFR-MDRD 41; Glucose 154 mg/dL (83-110); Potassium 4.1 mmol/L (3.5-5.1); Sodium 133 mmol/L (136-145)
[2018-06-26] MEDS ORDERED: cefTRIAXone\\ROCEPHIN 2 GM in Sodium Chloride 0.9% 100 ML IVPB SCH (06:00)
[2018-06-26 07:12] LABS: Hemoglobin 8.2 g/dL (14.0-18.0); MDiff Complete? YES; Mean Corpuscular HGB CONC 32.7 g/dL (32.0-36.0); Mean Corpuscular Hemoglobin 27.4 pg (27.0-31.0); Mean Corpuscular Volume 83.6 fL (78.0-98.0); Mean Platelet Volume 9.1 fL (7.4-10.4); Platelet Count 124 thou/uL (130-400); RBC Distribution Width 13.3 % (11.5-14.5); Red Blood Cell (RBC) Count 2.98 mill/uL (4.70-6.10); White Blood Cell (WBC) Count 29.7 thou/uL (4.8-10.8)
[2018-06-26 07:13] LABS: Band 12 % (5-11); Lymphocytes 9 % (21-51); Monocytes 29 % (0-10); Neutrophil 50 % (42-75)
[2018-06-26] MEDS ORDERED: Prevnar 13-Val Conj/PF 0.5 ML SYRINGE IM ONE (09:00)
[2018-06-26] MEDS: Famotidine 20 MG TAB PO SCH (10:02)
[2018-06-26] MEDS: Bicalutamide 50 MG TAB PO SCH (10:02)
[2018-06-26] MEDS: Citalopram 20 MG TAB PO SCH (10:02)
[2018-06-26] MEDS: Finasteride 5 MG TAB PO SCH (10:02)
[2018-06-26] MEDS: Donepezil HCl 10 MG TAB PO SCH (10:02)
--- NOTE | 2018-06-26 11:07 | CON ---
DATE OF CONSULTATION: 06/26/2018 The following consult encompassed 60 minutes time, of that time, greater than 50% was spent with the patient and/or on the patient's unit. REASON FOR CONSULTATION: Sepsis. HISTORY OF PRESENT ILLNESS: Mr. Weaver is a 77-year-old male who is a resident of a local [facility]. He was found on the floor yesterday after falling. He has been diagnosed with urosepsis and is currently in the [facility]. The patient appears to be demented. He is pleasant, does not appear to be in any distress at this time, but he does not know where he is. PAST MEDICAL HISTORY: 1. Prostate cancer. 2. Obstructive uropathy with hydronephrosis. 3. Diabetes mellitus type 2. 4. Hypertension. 5. Dementia, which I assume is Alzheimer's type. 6. Gastroesophageal reflux. 7. Anemia. PAST SURGICAL HISTORY: Appendectomy and ureteral stent placement. MEDICATIONS PRIOR TO ADMISSION: Aricept, Celexa, iron sulfate, simvastatin, terazosin, sliding scale insulin, Flomax, Zocor. ALLERGIES: LISINOPRIL. FAMILY MEDICAL HISTORY: Unremarkable. SOCIAL HISTORY: It sounds like patient was probably a former resident of [place] who left after [place]. He does not smoke, does not consume alcohol. REVIEW OF SYSTEMS: Cannot be obtained secondary to patient's dementia. PHYSICAL EXAMINATION: VITAL SIGNS: Temperature 96.8, pulse 108, respirations 18, O2 sat 100%, blood pressure 125/68. GENERAL: The patient is awake, alert, in no distress. HEENT: Pupils react. Sclerae icteric. Oropharynx clear. NECK: No adenopathy, JVD, or bruits. LUNGS: Clear without wheezing or rhonchi. CARDIOVASCULAR: S1, S2, slightly tachycardic without murmur. ABDOMEN: Soft. He has a small umbilical hernia. EXTREMITIES: No clubbing, cyanosis, or edema. LABORATORY DATA: White blood cell count 29.7, hemoglobin 8.2, hematocrit 24.9, platelet count 124. INR 1.2. PH 7.48, pCO2 of 31 venous oxygen 32. Sodium 133, potassium 4.1, chloride 105, CO2 18, BUN 24, creatinine 1.9, glucose 154. Urinalysis showed too numerous to count white blood cells and urin e tox screen was negative. Chest x-ray shows no mass, effusion or infiltrate. Brain CT was unremarkable except for atrophy. ASSESSMENT: 1. Urosepsis 2. Dementia. 3. Acute renal insufficiency secondary to volume loss. RECOMMENDATIONS: 1. Agree with hydration. 2. The patient is on broad spectrum IV antibiotics which can be adjusted once the results of culture s are known. 3. Start diet. 4. Likely can transfer to the floor by tomorrow. 5. Add enoxaparin for DVT prophylaxis.
[2018-06-26] MEDS: Piperacillin/Tazobactam 2.25 GM in Sodium Chloride 0.9% 100 ML IVPB SCH (17:44)
--- NOTE | 2018-06-26 17:47 | CON ---
DATE OF CONSULTATION: 06/26/2018 REASON FOR CONSULTATION: Invasive urinary tract infection. HISTORY OF PRESENT ILLNESS: A 77-year-old history of prostate cancer with obstructive uropathy and hydronephrosis and type 2 diabetes mellitus. At the beginning of May, he was admitted with obstructive uropathy with metastatic prostate cancer, bilateral renal obstruction with renal failure and creatinine of 9. Patient had a Yoder catheter placed and then cystoscopy, which showed no pathway to the patient's kidneys. He underwent bilateral percutaneous nephrostomy tube placement and a right-sided internalized stent and a left- sided indwelling percutaneous nephrostomy tube. After drainage was accomplished , his creatinine improved. When patient was being ready for discharge, the stents dislodged. Nephrostomy tube was placed by interventional radiologist. Left ureteral stents were replaced and then successful stents placed and the nephrostomy tube was removed. At that time, his urinalysis showed 4-6 wbc's and a urine culture showed less than 10,000 CFUs per mL with mixed skin evie. The patient was transferred to the [facility] and there on the day of admission, he was found septic with tachycardia and fever and tachypnea and in the emergency room, he was found to be in acute kidney injury and likely invasive UTI. His temperature was 102.3 and a heart rate 120. He was given broad spectrum antimicrobial coverage and admitted. PAST MEDICAL HISTORY: Prostate cancer, metastatic obstructive uropathy managed with both percutaneous nephrostomies and stance had a quite complicated urological course in the last hospital stay with dislodgement of the stent and a redo procedure, which finally was able to control the obstruction. At that point, the percutaneous nephrostomies were removed; type 2 diabetes; hypertension; dementia; anemia. PAST SURGICAL HISTORY: Includes appendectomy in addition to the above. SOCIAL HISTORY: [facility] resident. Never a smoker. MEDICATIONS: Currently include Tylenol, Lipitor, ceftriaxone, Aricept, Lovenox , Pepcid, ferrous sulfate, Proscar, glucagon, insulin, levofloxacin. ALLERGY HISTORY: LISINOPRIL. PHYSICAL EXAMINATION: VITAL SIGNS: T-max 99.3, currently 97.3, blood pressure 113/60, pulse 92, respirations 20, O2 sat 100. SKIN: Shows a few areas of shallow ulceration in the penile foreskin. Yoder catheter is present. Peripheral IV access. He is awake. He appears to have difficulty with hearing and some cognitive dysfunction. The replies to questions, is somewhat erratic and cannot be relied upon for information as to his subjective status. According to the nurse, he has not had any seizure activity and no diarrhea. Reportedly, came from [facility] with a Yoder catheter that was exchanged downstairs in the emergency room. HEENT: His ocular movements are conjugate. Sclerae white. Pupils are equal. Conjunctivae are pink. Oral cavity with quite a few teeth in place with quite significant decay and gum disease. No thrush. NECK: Supple, no jugular vein distention. LUNGS: Symmetric air entry. HEART: S1, S2, without murmurs. ABDOMEN: No abdominal distention or obvious tenderness. No ascites or bladder distention. MUSCULOSKELETAL: Osteoarthrosis in knees and ankles. Pulses are 1+ in dorsalis pedis, stiffness in all 4 extremities, but Plantar responses are flexure. NEUROLOGIC: He is awake, he knows his name. He could not tell me where he was , other than he was in the hospital, could not tell me the date. Urinalysis with greater than 50 WBCs and the WBC count from 23,000-29,000, platelets down to 124,000 12% bands are noted. PH 7.4, pCO2 31, this is a venous pCO2. Chemistry with a creatinine at 1.92 from admission of 2.23, which is markedly lower compared with the beginning of the last month's values. Liver profile normal. Albumin 3.9, globulin 3.9. Microbiology with presumptive Pseudomonas aeruginosa. ASSESSMENT: 1. Dementia. 2. Prostate cancer, metastatic. 3. Bilateral hydronephrosis due to prostate cancer, locally invasive, status post stenting bilaterally. Following temporary need for percutaneous nephrostomy placement. 4. Urosepsis, which led to current admission. DISCUSSION: The patient will be transitioned to antipseudomonal combination with Zosyn and maintain levofloxacin, discontinue Rocephin. We will need to evaluate reevaluate his kidney obstruction with a repeat ultrasound. The patient is currently on androgen deprivation hormonal therapy for management of his prostate cancer. Disposition will depend on the susceptibility profile of the Pseudomonas organism and any further organisms isolated from either urine or blood cultures. MTDD
--- NOTE | 2018-06-26 18:33 | ULT ---
ULTRASOUND RETROPERITONEUM COMPLETE: (RENAL) 06/26/2018 HISTORY: A 77-year-old male with urosepsis. FINDINGS: The right kidney measures 9.5 x 5 x 4.5 cm. The left kidney measures 9.5 x 6.5 x 5.5 cm. There is n o evidence of moderate sized or large renal cysts or solid mass. Both kidneys have normal cortical t hickness and normal cortical echogenicity. There is no hydronephrosis. There is a Yoder catheter in the urinary bladder. There is thick moderately hypoechoic material surrounding the Yoder catheter b alloon, especially posteriorly, where the thickness of this material is 2 cm. It is uncertain whethe r this represents material within the bladder lumen, such as hematoma, pus, or neoplastic tumor mass, or whether this represents severe mural thickening of the urinary bladder. IMPRESSION: 1. Normal sonographic appearance of the bilateral kidneys. 2. Yoder catheter within the urinary bladder. 3. posterior mural thickening vs material in the bladder lumen posterior to the Yoder catheter ballo on, of uncertain nature. Consider further evaluation with CT of the pelvis. eric POS: CHELLY
[2018-06-26] MEDS: Enoxaparin Sodium 30 MG/0.3 ML SYRINGE SC SCH (20:26)
[2018-06-26] MEDS: Melatonin 3 MG TAB PO SCH (20:26)
[2018-06-26] MEDS: Atorvastatin Calcium 40 MG TAB PO SCH (20:26)
[2018-06-27] MEDS: Piperacillin/Tazobactam 2.25 GM in Sodium Chloride 0.9% 100 ML IVPB SCH ×4 (00:41→16:12)
[2018-06-27] MEDS: Sodium Chloride 0.9% 1,000 ML IV SCH ×2 (02:39→14:47)
--- NOTE | 2018-06-27 08:17 | PRG ---
DATE OF SERVICE: 06/27/2018 The patient is doing well. He is pleasantly confused. PHYSICAL EXAMINATION: VITAL SIGNS: Temperature 98.2, pulse 107, respirations 19, O2 sat 100%, blood pressure 139/71. HEENT: Unremarkable. NECK: No adenopathy or JVD. CHEST: Clear without wheezing. CARDIAC: S1 and S2 regular. ABDOMEN: Soft. EXTREMITIES: No edema. LABORATORY DATA: White blood cell count 29.7, hematocrit 24.9, platelet count 124. Sodium 130, pota ssium 4.1, chloride 105, CO2 18, BUN 24, creatinine 1.9, glucose 154. Of note, all these labs were o btained from yesterday. Urine culture has presumptive Pseudomonas. Sensitivities are pending. ASSESSMENT: Urosepsis. PLAN: The patient is stable enough for transfer out to the medical floor. We need to follow culture results and adjust antibiotics accordingly.
[2018-06-27] MEDS: Famotidine 20 MG TAB PO SCH (09:19)
[2018-06-27] MEDS: Bicalutamide 50 MG TAB PO SCH (09:19)
[2018-06-27] MEDS: Citalopram 20 MG TAB PO SCH (09:20)
[2018-06-27] MEDS: Donepezil HCl 10 MG TAB PO SCH (09:20)
[2018-06-27] MEDS: Finasteride 5 MG TAB PO SCH (09:20)
[2018-06-27] MEDS: Atorvastatin Calcium 40 MG TAB PO SCH (22:15)
[2018-06-27] MEDS: Enoxaparin Sodium 30 MG/0.3 ML SYRINGE SC SCH (22:15)
[2018-06-27] MEDS: Melatonin 3 MG TAB PO SCH (22:15)
[2018-06-28] MEDS: Piperacillin/Tazobactam 2.25 GM in Sodium Chloride 0.9% 100 ML IVPB SCH ×3 (00:20→11:16)
[2018-06-28 05:06] LABS: Anion Gap 13 mmol/L (10-20); BUN (Urea Nitrogen) 17 mg/dL (8.4-25.7); Calc. Creatinine Clearance 38 mL/min (70-130); Calcium 8.8 mg/dL (7.8-10.44); Carbon Dioxide 20 mmol/L (23-31); Chloride 110 mmol/L (98-107); Estimated GFR-MDRD 42; Glucose 101 mg/dL (83-110); Potassium 3.7 mmol/L (3.5-5.1); Sodium 139 mmol/L (136-145)
[2018-06-28 05:40] LABS: Band 4 % (5-11); Eosinophils 2 % (0-10); Hemoglobin 7.7 g/dL (14.0-18.0); Lymphocytes 16 % (21-51); MDiff Complete? YES; Mean Corpuscular HGB CONC 32.6 g/dL (32.0-36.0); Mean Corpuscular Hemoglobin 27.5 pg (27.0-31.0); Mean Corpuscular Volume 84.4 fL (78.0-98.0); Mean Platelet Volume 9.6 fL (7.4-10.4); Monocytes 11 % (0-10); Neutrophil 67 % (42-75); Platelet Count 140 thou/uL (130-400); RBC Distribution Width 13.1 % (11.5-14.5); Red Blood Cell (RBC) Count 2.79 mill/uL (4.70-6.10); White Blood Cell (WBC) Count 10.9 thou/uL (4.8-10.8)
[2018-06-28] MEDS: Sodium Chloride 0.9% 1,000 ML IV SCH (08:23)
[2018-06-28] MEDS: Bicalutamide 50 MG TAB PO SCH (08:26)
[2018-06-28] MEDS: Finasteride 5 MG TAB PO SCH (08:26)
[2018-06-28] MEDS: Citalopram 20 MG TAB PO SCH (08:26)
[2018-06-28] MEDS: Famotidine 20 MG TAB PO SCH (08:26)
[2018-06-28] MEDS: Donepezil HCl 10 MG TAB PO SCH (08:27)
[2018-06-28] MEDS: Melatonin 3 MG TAB PO SCH (20:28)
[2018-06-28] MEDS: Cefepime 2 GM in Sodium Chloride 0.9% 100 ML IVPB SCH (20:28)
[2018-06-28] MEDS: Enoxaparin Sodium 30 MG/0.3 ML SYRINGE SC SCH (20:28)
[2018-06-28] MEDS: Atorvastatin Calcium 40 MG TAB PO SCH (20:28)
[2018-06-29 04:23] LABS: #Eosinphils 0.1 thou/uL (0.0-0.7); #Lymphocytes 2.4 thou/uL (1.20-3.40); #Monocytes 1.1 thou/uL (0.11-0.59); #Neutrophils 4.5 thou/uL (1.40-6.50); %Basophils 0.4 % (0.0-1.0); %Eosinophils 1.2 % (0.0-10.0); %Lymphocytes 29.4 % (21.0-51.0); %Monocytes 13.3 % (0.0-10.0); %Neutrophils 55.7 % (42.0-75.0); Hemoglobin 7.8 g/dL (14.0-18.0); Mean Corpuscular HGB CONC 33.2 g/dL (32.0-36.0); Mean Corpuscular Hemoglobin 27.9 pg (27.0-31.0); Mean Corpuscular Volume 83.9 fL (78.0-98.0); Mean Platelet Volume 9.4 fL (7.4-10.4); Platelet Count 158 thou/uL (130-400); RBC Distribution Width 13.2 % (11.5-14.5); Red Blood Cell (RBC) Count 2.79 mill/uL (4.70-6.10); White Blood Cell (WBC) Count 8.1 thou/uL (4.8-10.8)
[2018-06-29 04:33] LABS: Anion Gap 13 mmol/L (10-20); BUN (Urea Nitrogen) 16 mg/dL (8.4-25.7); Calc. Creatinine Clearance 38 mL/min (70-130); Calcium 9.1 mg/dL (7.8-10.44); Carbon Dioxide 21 mmol/L (23-31); Chloride 107 mmol/L (98-107); Estimated GFR-MDRD 42; Glucose 104 mg/dL (83-110); Potassium 3.5 mmol/L (3.5-5.1); Sodium 137 mmol/L (136-145)
[2018-06-29] MEDS: Famotidine 20 MG TAB PO SCH (09:19)
[2018-06-29] MEDS: Finasteride 5 MG TAB PO SCH (09:19)
[2018-06-29] MEDS: Donepezil HCl 10 MG TAB PO SCH (09:19)
[2018-06-29] MEDS: Citalopram 20 MG TAB PO SCH (09:20)
[2018-06-29] MEDS: Bicalutamide 50 MG TAB PO SCH (09:20)
[2018-06-29] MEDS: Cefepime 2 GM in Sodium Chloride 0.9% 100 ML IVPB SCH ×2 (09:21→20:44)
--- NOTE | 2018-06-29 16:05 | PRG ---
DATE OF SERVICE: 06/29/2018 SUBJECTIVE: When asked, he states that he is not feeling well. Complains of pain in the abdominal a julian. No headaches, no shortness of breath and has a Yoder catheter. OBJECTIVE: VITAL SIGNS: His T-max 98.3, blood pressure 130/60, pulse 76, respirations 18-20, O2 saturation 97%. SKIN: Wound showed few ulcers in the foreskin area. Peripheral IV access. Ocular movements are con jugate. LUNGS: With symmetric clear breath sounds. CARDIOVASCULAR: S1, S2 with regular rate. ABDOMEN: Soft with moderate distention, mild tenderness which is diffuse. LABORATORY DATA: White cell count is down to 8.1, hemoglobin 7.8, platelets 158. The creatinine is 1.88, which is down from admission. Microbiology with P. aeruginosa with susceptibility to amikacin and cefepime only. Currently, the patient is receiving cefepime. ASSESSMENT AND DISCUSSION: Dementia with prostate cancer metastatic, bilateral hydronephrosis due to locally invasive prostate cancer, status post bilateral stents and then removal urosepsis with probl ems with Yoder catheter. The patient currently on cefepime to be continued for about 2 weeks total t herapy and then discontinue antimicrobial therapy. Disposition will probably involve continuation of treatment in the detention.
[2018-06-29] MEDS: Atorvastatin Calcium 40 MG TAB PO SCH (20:44)
[2018-06-29] MEDS: Enoxaparin Sodium 30 MG/0.3 ML SYRINGE SC SCH (20:44)
[2018-06-29] MEDS: Melatonin 3 MG TAB PO SCH (20:44)
--- NOTE | 2018-06-30 03:18 | CON ---
DATE OF CONSULTATION: 06/29/2018 REASON FOR CONSULTATION: Gross hematuria, metastatic prostate cancer. HISTORY OF PRESENT ILLNESS: Mr. Weaver is a 77-year-old gentleman diagnosed with prostate cancer in 07/2016. He has been on hormone therapy. His PSA has been slowly rising despite hormone therapy. [place] augustin has been in urinary retention managed by Yoder catheter for over a year. He has intermittent long- term hematuria. His most recent hospitalization was one month ago. He was admitted to [facility] not feeling well and with nausea and vomiting. On evaluation, he was noted to have renal fail ure with a creatinine of 9. He was diagnosed with bilateral ureteral obstruction. Attempts were mad e to place stents in a retrograde fashion, but this was not possible because of his locally advanced prostate cancer. He was managed with antegrade bilateral stent placement. His renal function improv ed and at the time of discharge, his creatinine was approximately 2. He was discharged to a rehabili tation facility. He returned to [place] on 06/25/2018. He was noted to have all fever and a fall while at the rehab facility. He has since been diagnosed with Pseudomonas urinary tract infection a nd is on appropriate antibiotic therapy at this time. His hematuria has persisted, but is improved s yen admission. He is afebrile now. PAST MEDICAL HISTORY: Metastatic prostate cancer, type 2 diabetes, renal failure secondary to obstru ction, status post bilateral antegrade stent placement, dementia, anemia, urinary retention. PAST SURGICAL HISTORY: Appendectomy, bilateral antegrade stent placement on 05/31/2018. CURRENT MEDICATIONS: Aricept 10 mg, Celexa 40 mg, iron sulfate, melatonin, sliding scale insulin, si mvastatin, Zocor. ALLERGIES: LISINOPRIL. FAMILY HISTORY: Noncontributory. REVIEW OF SYSTEMS: GENERAL APPEARANCE: Patient states he hurts all over. RESPIRATORY: No wheezing or hemoptysis. GASTROINTESTINAL: Denies chronic constipation, diarrhea. NEUROLOGIC: Denies any f ocal deficits. PHYSICAL EXAMINATION: GENERAL APPEARANCE: He is awake, alert, is in no distress at this time. VITAL SIGNS: Temperature 99, pulse 98, blood pressure 138/82. HEENT: Normocephalic, atraumatic. NECK: Supple, without masses. CHEST: Clear to auscultation. CARDIOVASCULAR: Regular rhythm. ABDOMEN: Soft, nontender, no palpable masses. Liver and spleen are palpable. No abdominal tenderne ss. Yoder catheter in place draining light pink urine. Hand irrigated, no clots obtained. IMPRESSION: Mr. Weaver has advanced prostate cancer. Bone scan on 03/10/2018 did not demonstrate an y bone disease. CT scan demonstrates progressive pelvic lymphadenopathy. Cystoscopy demonstrates lo carlos growth of prostate cancer with invasion of the trigone. He was last admitted to the hospital wit h renal failure and had bilateral retrograde stent placement and has Pseudomonas urosepsis. He is on appropriate antibiotic therapy and responding nicely and the hematuria is chronic. He has been cath eter dependent for approximately 1 year that along with his stents and has a locally advanced prostat e cancer account for his hematuria and there were no clots noted on hand irrigation. RECOMMENDATIONS: 1. No additional urologic recommendations at this time. 2. Agree with Dr. Castro. PLAN: .
[2018-06-30] MEDS: Finasteride 5 MG TAB PO SCH (08:10)
[2018-06-30] MEDS: Bicalutamide 50 MG TAB PO SCH (08:10)
[2018-06-30] MEDS: Famotidine 20 MG TAB PO SCH (08:10)
[2018-06-30] MEDS: Donepezil HCl 10 MG TAB PO SCH (08:10)
[2018-06-30] MEDS: Citalopram 20 MG TAB PO SCH (08:10)
[2018-06-30] MEDS: Cefepime 2 GM in Sodium Chloride 0.9% 100 ML IVPB SCH ×2 (08:11→21:31)
[2018-06-30] MEDS: Enoxaparin Sodium 30 MG/0.3 ML SYRINGE SC SCH (21:31)
[2018-06-30] MEDS: Atorvastatin Calcium 40 MG TAB PO SCH (21:31)
[2018-06-30] MEDS: Melatonin 3 MG TAB PO SCH (21:31)
[2018-07-01 04:36] LABS: Anion Gap 13 mmol/L (10-20); BUN (Urea Nitrogen) 17 mg/dL (8.4-25.7); Calc. Creatinine Clearance 38 mL/min (70-130); Calcium 9.1 mg/dL (7.8-10.44); Carbon Dioxide 22 mmol/L (23-31); Chloride 104 mmol/L (98-107); Estimated GFR-MDRD 42; Glucose 113 mg/dL (83-110); Potassium 3.7 mmol/L (3.5-5.1); Sodium 135 mmol/L (136-145)
[2018-07-01 04:50] LABS: Band 2 % (5-11); Eosinophils 1 % (0-10); Hemoglobin 8.3 g/dL (14.0-18.0); Lymphocytes 31 % (21-51); MDiff Complete? YES; Mean Corpuscular HGB CONC 32.9 g/dL (32.0-36.0); Mean Corpuscular Hemoglobin 27.3 pg (27.0-31.0); Mean Platelet Volume 9.2 fL (7.4-10.4); Monocytes 15 % (0-10); Neutrophil 50 % (42-75); PLT Morphology Comment Appears Adequate; Platelet Count 171 thou/uL (130-400); RBC Distribution Width 13.3 % (11.5-14.5); Red Blood Cell (RBC) Count 3.04 mill/uL (4.70-6.10); White Blood Cell (WBC) Count 7.8 thou/uL (4.8-10.8)
[2018-07-01] MEDS: Citalopram 20 MG TAB PO SCH (08:47)
[2018-07-01] MEDS: Donepezil HCl 10 MG TAB PO SCH (08:47)
[2018-07-01] MEDS: Cefepime 2 GM in Sodium Chloride 0.9% 100 ML IVPB SCH ×2 (08:48→21:17)
[2018-07-01] MEDS: Finasteride 5 MG TAB PO SCH (08:48)
[2018-07-01] MEDS: Bicalutamide 50 MG TAB PO SCH (08:48)
[2018-07-01] MEDS: Famotidine 20 MG TAB PO SCH (08:48)
[2018-07-01] MEDS ORDERED: Ondansetron HCl/PF 4 MG/2 ML Vial IVP PRN (14:08)
[2018-07-01] MEDS: Atorvastatin Calcium 40 MG TAB PO SCH (21:17)
[2018-07-01] MEDS: Melatonin 3 MG TAB PO SCH (21:17)
[2018-07-01] MEDS: Enoxaparin Sodium 30 MG/0.3 ML SYRINGE SC SCH (21:17)
[2018-07-02 08:26] VITALS: BP 134/79; TEMP 97.9
[2018-07-02] MEDS: Famotidine 20 MG TAB PO SCH (08:44)
[2018-07-02] MEDS: Bicalutamide 50 MG TAB PO SCH (08:44)
[2018-07-02] MEDS: Donepezil HCl 10 MG TAB PO SCH (08:45)
[2018-07-02] MEDS: Finasteride 5 MG TAB PO SCH (08:45)
[2018-07-02] MEDS: Citalopram 20 MG TAB PO SCH (08:45)
[2018-07-02] MEDS: Cefepime 2 GM in Sodium Chloride 0.9% 100 ML IVPB SCH ×2 (08:46→17:09)
[2018-07-02] MEDS ORDERED: Heparin 1,000 UNITS/ML VIAL ONE (11:11)
--- NOTE | 2018-07-02 11:12 | SPC ---
LEFT UPPER EXTREMITY ULTRASOUND GUIDED PICC PLACEMENT: DATE: 07/02/18. HISTORY: Upper respiratory infection, in need of IV antibiotics. FINDINGS: Informed consent obtained prior to the procedure. Left antecubital fossa prepped and draped in normal sterile fashion and the skin overlying the basili c vein was anesthetized with 1% buffered Lidocaine. With direct sonographic guidance, vascular accessed is obtained via the left basilic vein and an 0.01 8 wire is advanced into the inferior vena cava, retracted to the level of the cavoatrial junction. I ntravascular length is calculated at 43 cm and the PICC was cut accordingly. The needle was removed and replaced with a peelaway sheath. The PICC is advanced over the wire. The wire and peelaway sheath are removed. The tip of the cathet er overlies the cavoatrial junction. Both pots flush well and the catheter is ready for use. EXPOSURE DATA: 0.4 minutes of fluoroscopic time, 3231 mGy*^cm2. IMPRESSION: Successful ultrasound-guided placement of a left upper extremity dual-lumen PICC. POS: CHELLY
--- NOTE | 2018-07-04 10:39 | DIS ---
DATE OF ADMISSION: 06/25/2018 DATE OF DISCHARGE: 07/02/2018 ADMITTING DIAGNOSES: 1. Possible sepsis due to urinary tract infection. 2. Leukocytosis and fever, rule out sepsis. 3. History of obstructive uropathy. 4. Diabetes mellitus. 5. Hypertension. 6. History of prostate cancer. 7. Dementia. FINAL DIAGNOSES: 1. Sepsis due to urinary tract infection with Pseudomonas, started on cefepime. 2. Leukocytosis and fever, resolved. 3. Diabetes mellitus. 4. History of prostate cancer. 5. Hypertension. 6. Dementia. 7. Chronic hematuria secondary to prostate cancer. BRIEF SUMMARY OF HOSPITAL COURSE: Mr. Weaver is a 77-year-old Afro[place] male admitted because of fever and less responsiveness. He was found to have a fever with leukocytosis and urinary tract infection. [place] [address] on admission, but with IV antibiotics and with treatment inpatient it came down to 7.8. A consultation was done. Initially, the patient was admitted to [facility] for close monitoring and consultation was done with Pulmonary. pt was seen Dr. Russell. His impression was patient with sepsis. He is to continue with broad spectrum IV antibiotic and hydration. Patient was seen by Dr. Castro from Infectious Disease. The patient has urosepsis. He is to discontinue Rocephin and continue on levofloxacin and Zofran and cultures were obtained. Pseudomonas aeruginosa was grown in blood culture and urine culture, was resistant to levofloxacin, meropenem, and Zosyn, but sensitive to cefepime. Since antibiotic was changed to cefepime and the patient was continued on cefepime for the next few days. He was transferred to the medical floor. The patient did develop hematuria while in the hospital. Urology consulted and then patient was seen by Dr. Felton. He felt patient did have chronic hematuria due to his advanced prostate cancer, so as to continue his treatment of urinary infection and monitoring. The patient had a PICC line placed because of his IV antibiotic for at least 2 weeks. After PICC line placement, the patient was discharged. At the time of discharge, he was stable. His vital signs stable. Lungs clear. Heart sounds regular. Abdomen is soft, nontender. Bowel sounds present. DISCHARGE MEDICATIONS: Include citalopram 40 mg daily, Aricept 10 mg daily, finasteride 5 mg daily, melatonin 3 mg at bedtime, simvastatin 80 mg daily, ranitidine 150 daily, Tylenol p.r.n., ferrous sulfate 45 mg b.i.d., Casodex 15 mg daily and he will be on sliding scale with Humalog insulin, cefepime 2 grams q.12 hours for a total of 2 weeks. FOLLOWUP: The patient will be followed up in the snf. PREET
--- NOTE | 2018-07-05 10:46 | PQF ---
S[employer] Bonded Strand Operator Crystal Reports Winform ViewerSt. [facility] Phys[facility] Query Form RUTH ANN ALONZO VENKAT R MD [id number] CLINICAL DOCUMENTATION CLARIFICATION FORM: POST DISCHARGE Addendum to original discharge summary date: ____ Late entry note date: __ DATE: ATTN: Please exercise your independent, professional judgment in responding to the clarification form. Clinical indicators are provided on the bottom of this form for your review Please check appropriate box(es): [ y] Sepsis due to: (UTI, Due to: [ ] URINARY CATHETER [ ] SIRS due to non-infectious process (please specify etiology) [ ] with organ dysfunction [ ] without organ dysfunction [ ] Severe sepsis with acute organ dysfunction of: (Examples: respiratory failure, encephalopathy, acute kidney failure, other) [ ] Septic Shock [ ] Localized infection without sepsis [ ] Other diagnosis [ ] Unable to determine In addition, please specify: Present on Admission (POA): [ y ] Yes [ ] No [ ] Unable to determine For continuity of documentation, please document condition throughout progress notes and discharge summary. Thank You. CLINICAL INDICATORS - SIGNS / SYMPTOMS / LABS Altered mental status Fever or hypothermia (<96.8 F/36 C or > 100.4 F/38C) RISK FACTORS SEVERE SEPSIS, CATHETER ASSOCIATED UTI- ED POSSIBLE SEPSIS DUE TO UTI- H&P LEUKOCYTOSIS AND FEVER, RULE OUT UTI- H&P UROSEPSIS WITH PROBLEMS WITH WELDON CATHETER- PN 06/29 Infection/Bacteremia UTI WITH CATHETER TREATMENTS: Initiation Sepsis Protocol ID Consult SAP Bonded Strand Operator Crystal Reports Winform ViewerIV antibiotics - broad spectrum (This form is maintained as a part of the permanent medical record) 2014 [employer]. All Rights Reserved [email or web address] [phone] [email or web address]
== END 2018-07-02 19:18 | DRG 872 ==
LOC: ERS 17:25 → IMCU/EMU 18:49 → T4-B 06-27 09:49
PROVIDERS: ADMIT Internal Medicine; ATTEND Internal Medicine
PROC: 02HV33Z Insertion of Infusion Device into Superior Vena Cava, Percutaneous Approach (ICD-10-PCS; principal; 2018-07-02)
PROC: B548ZZA Ultrasonography of Superior Vena Cava, Guidance (ICD-10-PCS; 2018-07-02)
DX: A41.9 Sepsis, unspecified organism (principal); N17.9 Acute kidney failure, unspecified; N13.30 Unspecified hydronephrosis; N39.0 Urinary tract infection, site not specified; N18.9 Chronic kidney disease, unspecified; N13.9 Obstructive and reflux uropathy, unspecified; F03.90 Unspecified dementia, unspecified severity, without behavioral disturbance, psychotic disturbance, mood disturbance, and anxiety; K21.9 Gastro-esophageal reflux disease without esophagitis; D64.9 Anemia, unspecified; E11.22 Type 2 diabetes mellitus with diabetic chronic kidney disease; I12.9 Hypertensive chronic kidney disease with stage 1 through stage 4 chronic kidney disease, or unspecified chronic kidney disease; R33.9 Retention of urine, unspecified; B96.5 Pseudomonas (aeruginosa) (mallei) (pseudomallei) as the cause of diseases classified elsewhere; R31.0 Gross hematuria; Z85.46 Personal history of malignant neoplasm of prostate
CPT/HCPCS: 36415; 36416; 36569; 51702; 70450; 71045; 72125; 76770; 80048; 80053; 80307; 81003; 81015; 82330; 82553; 82803; 83605; 84443; 84484; 85007; 85025; 85027; 85610; 85730; 87040; 87077; 87086; 87149; 87186; 90471; 90670; 93005; 94760; 96365; 96366; 96367; 96368; C1751; G0009; G8978-GP-CM; G8979-GP-CK; J0131; J0692; J0696; J1644; J1650; J1956; J2405; J2543; J3370; J7050

== ENCOUNTER 2018-07-06 14:15 | Day surgery (SDC) | payer MEDICARE, OTHER | END 2018-07-06 15:18 | LOC: ONC/OP 14:15 | PROVIDERS: ATTEND Internal Medicine | DX: T82.898A Other specified complication of vascular prosthetic devices, implants and grafts, initial encounter (principal) | CPT/HCPCS: 96523 ==

== ENCOUNTER 2018-07-10 19:23 | Observation (INO) | payer MEDICARE, OTHER ==
[2018-07-10 21:45] LABS: Hemoglobin 8.6 g/dL (14.0-18.0); Mean Corpuscular HGB CONC 31.1 g/dL (32.0-36.0); Mean Corpuscular Hemoglobin 26.1 pg (27.0-31.0); Mean Corpuscular Volume 83.9 fL (78.0-98.0); Mean Platelet Volume 9.4 fL (7.4-10.4); Platelet Count 152 thou/uL (130-400); Red Blood Cell (RBC) Count 3.28 mill/uL (4.70-6.10); White Blood Cell (WBC) Count 10.8 thou/uL (4.8-10.8)
[2018-07-10 21:56] LABS: ALT (SGPT) 16 U/L (8-55); AST (SGOT) 21 U/L (5-34); Albumin 3.5 g/dL (3.4-4.8); Alkaline Phosphatase 106 U/L (40-150); Anion Gap 13 mmol/L (10-20); BUN (Urea Nitrogen) 23 mg/dL (8.4-25.7); Bilirubin, Total 0.4 mg/dL (0.2-1.2); CK (CPK) 152 U/L (30-200); Calc. Creatinine Clearance 0 mL/min (70-130); Calcium 9.3 mg/dL (7.8-10.44); Carbon Dioxide 22 mmol/L (23-31); Chloride 104 mmol/L (98-107); Estimated GFR-MDRD 48; Globulin 4.1 g/dL (2.4-3.5); Glucose 132 mg/dL (83-110); Magnesium 1.6 mg/dL (1.6-2.6); Potassium 3.8 mmol/L (3.5-5.1); Protein, Total 7.6 g/dL (5.8-8.1); Sodium 135 mmol/L (136-145)
[2018-07-10 22:01] LABS: CKMB 1.9 ng/mL (0-6.6); Troponin I Less than 0.010 ng/mL (< 0.028)
[2018-07-10 22:04] LABS: Band 8 % (5-11); Lymphocytes 23 % (21-51); MDiff Complete? YES; Monocytes 17 % (0-10); Neutrophil 52 % (42-75)
--- NOTE | 2018-07-10 22:23 | CT ---
CT BRAIN: 07/10/2018 HISTORY: Right upper extremity weakness. COMPARISON: 06/25/2018 TECHNIQUE: Noncontrast enhanced CT images of the brain are obtained. FINDINGS: Noncontrast enhanced CT images of the brain demonstrate diffuse cortical atrophy and deep white matte r ischemic changes. No evidence of acute intracranial masses, hemorrhages, strokes, or contusions se en. Old lacunar infarction is seen in the right basal ganglion. IMPRESSION: Cortical atrophy and deep white matter ischemic changes. POS: CHELLY
[2018-07-11] MEDS ORDERED: Acetaminophen 325 MG TAB PO PRN ×2 (01:30→10:35)
[2018-07-11 03:14] VITALS: BMI 24.5
[2018-07-11] MEDS ORDERED: Prevnar 13-Val Conj/PF 0.5 ML SYRINGE IM ONE (09:00)
[2018-07-11] MEDS ORDERED: Citalopram 20 MG TAB PO SCH (10:45)
[2018-07-11] MEDS ORDERED: Donepezil HCl 10 MG TAB PO SCH (10:45)
[2018-07-11] MEDS ORDERED: Finasteride 5 MG TAB PO SCH (10:45)
[2018-07-11] MEDS ORDERED: Bicalutamide 50 MG TAB PO SCH (10:45)
[2018-07-11] MEDS ORDERED: Famotidine 20 MG TAB PO SCH (10:45)
--- NOTE | 2018-07-11 11:54 | MRI ---
BRAIN MRI WITHOUT CONTRAST: Date: 07/11/18 HISTORY: Right upper extremity weakness. Confusion. Evaluate for CVA. COMPARISON: 07/09/16. TECHNIQUE: Brain MRI is performed without intravenous Gadolinium administration. Multisequential, multiplanar im aging is performed. FINDINGS: No hemorrhage on the axial gradient echo sequence. Central arterial flow-voids are maintained. Absent restricted diffusion. There are T2 and FLAIR white matter hyperintensities due to chronic small vessel ischemic change. Grossly normal T1 marrow signal intensity of the calvarium. Grossly unremarkable midline brain parenc hymal structures. T2 and FLAIR white matter hyperintensity due to chronic small vessel ischemic change. There is dilata tion of the ventricular system, similar to the previous examination. The degree of dilatation is some what greater than expected for the degree of atrophy. Correlate for normal pressure hydrocephalus. IMPRESSION: Markedly limited evaluation due to motion degradation, despite repeat imaging. No definite acute intr acranial abnormalities appreciated. POS: CHELLY
[2018-07-11] MEDS ORDERED: Ferrous Sulfate 325 MG TAB PO SCH ×2 (12:00→21:00)
[2018-07-11] MEDS ORDERED: Cefepime 2 GM in Sodium Chloride 0.9% 100 ML IVPB SCH ×2 (12:00→21:00)
[2018-07-11] MEDS ORDERED: Melatonin 3 MG TAB PO SCH (21:00)
[2018-07-11] MEDS ORDERED: Atorvastatin Calcium 40 MG TAB PO SCH (21:00)
--- NOTE | 2018-07-11 22:23 | CON ---
DATE OF CONSULTATION: 07/11/2018 NEUROLOGY CONSULTATION CONSULTING PHYSICIAN: Dr. Bala Arroyo. IMPRESSION: 1. Right radial nerve palsy. 2. Vascular dementia. 3. Diabetes. PLAN: 1. Patient can be discharged to the [facility] for care. 2. Cock-up splint while his nerve recovers. HISTORY OF PRESENT ILLNESS: Mr. Weaver is a 77-year-old gentleman who has been living at [facility]. He was brought over due to loss of movement in his right hand. He had an MRI of the brain done, [facility] showed extensive small vessel ischemic changes, but no acute changes. He is without any complaint s of pain or numbness in the arm. He otherwise feels like everything is working well. PAST MEDICAL HISTORY: As listed above. ALLERGIES: LISINOPRIL. MEDICATIONS: List was reviewed. SOCIAL HISTORY: No tobacco or alcohol use. FAMILY HISTORY: Noncontributory. REVIEW OF SYSTEMS: No complaint of headache, nausea, vomiting, vertigo, chest pain, shortness of elida ath. PHYSICAL EXAMINATION: GENERAL: He is a well-nourished elderly man lying in bed in no distress. HEENT: Pupils equal and reactive. Conjunctivae clear. Oropharynx clear. NECK: Supple. EXTREMITIES: No cyanosis, clubbing or edema. NEUROLOGIC: He is awake and cooperative. He followed the commands appropriately. His speech seemed to be fluent and clear. Cranial nerves were intact without any facial droop. Motor exam showed wea kness limited to extension and finger extension on the right side. The remaining motor exam seems sy mmetric and appropriate. Sensation was intact to light touch. Gait was not tested. No abnormal mov ements were seen. EKG showed normal sinus rhythm. LABORATORY STUDIES: Remarkable for hemoglobin of 8 and hematocrit of 27. His blood glucoses were mi ldly elevated. SUMMARY: Elderly gentleman with diabetes appears to have a radial nerve palsy on the right. This wi ll usually recover in a few weeks. There is no other emergent issues present.
[2018-07-12 03:55] VITALS: BP 120/65; TEMP 98.1
--- NOTE | 2018-07-12 06:57 | HP ---
DATE OF ADMISSION: 07/10/2018 REASON FOR ADMISSION: Right-sided weakness. HISTORY OF PRESENT ILLNESS: Mr. Weaver is a 77-year-old -[place] male with past medical hist ory of severe dementia, hypertension, diabetes mellitus, prostate cancer who was sent from the [facility] because of right upper extremity weakness. Patient's family noted that he had more weakne ss than usual on the right side. senior living staff did not notice that. Patient did not have any c hest pain or shortness of breath. No nausea or vomiting. Patient is a right-handed, but he is using left hand more often. So, he was suspected to have stroke with right upper extremity weakness. He was sent to the hospital. In the ER, patient was evaluated, had a normal CAT scan of brain without e vidence of any focal deficit. He did have some mild right-hand weakness. He was admitted to rule ou t CVA and MRI of the brain is ordered. Patient is scheduled to go to [place] facility in [place] tom[place] ow. PAST MEDICAL HISTORY: 1. Diabetes mellitus. 2. Hypertension. 3. Prostate cancer. No history of obstructive uropathy, hydronephrosis. 4. Severe dementia. 5. Gastroesophageal reflux disease. 6. Anemia. 7. Recent Pseudomonas sepsis due to urinary tract infection. PAST SURGICAL HISTORY: 1. Status post appendectomy. 2. Status post two stent placements in the ureter. CURRENT MEDICATIONS: The patient is on Tylenol p.r.n.; Casodex 50 mg daily; cefepime 2 grams q.12 ho urs IV piggyback, today will be the last dose; Celexa 40 mg daily; Aricept 10 mg daily; Feosol tablet 45 mg b.i.d., finasteride 5 mg daily, melatonin at bedtime 3 mg, ranitidine 50 daily, simvastatin 80 mg daily. ALLERGIES: LISINOPRIL. FAMILY HISTORY: Nothing significant. SOCIAL HISTORY: Patient is a resident of [facility]. No history of smoking. No history of a lcohol intake. REVIEW OF SYSTEMS: Unable to obtain. Patient is alert, but not oriented. PHYSICAL EXAMINATION: GENERAL: Patient is alert, awake, not well oriented. VITAL SIGNS: Temperature 98, pulse 98, respirations 20, blood pressure 160/80. HEENT: Head is normocephalic and atraumatic. Pupils equal and reactive. Nasopharynx is pale and dr y. Hard and soft palate, no lesions seen. SKIN: Turgor decreased. NECK: Supple. No JVD. LUNGS: Breath sounds diminished bilaterally. Percussion bilaterally. No rales, no rhonchi. HEART: S1, S2 regular. ABDOMEN: Soft. No distention, no tenderness. Normal bowel sounds present. RECTAL: Deferred. CENTRAL NERVOUS SYSTEM: Patient is alert, awake, but not oriented. Gait, patient is nonambulatory. Motor system, 5/5 in all extremities. There is slight decrease in the cloud developer strength on the right si de compared to the left. Deep tendon reflex 2+ bilaterally. Plantar downgoing. Sensory intact. LABORATORY AND X-RAY FINDINGS: CBC shows WBC 10.8, hemoglobin 8.6, hematocrit 27, platelets 152. Me tabolic panel: Sodium 135, potassium 3.8, chloride 104, CO2 of 22, urea nitrogen 23, creatinine 1.6, glucose 132. CK-MB is 1.9. Troponin I 0.0. CT scan of the brain showed cortical atrophy with deep white matter ischemic, no acute infarct or no bleeding. 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 MRI of the brain showed no acute intracranial abnormalities appreciated. ASSESSMENT: 1. Right-hand weakness, rule out cerebrovascular accident. 2. Diabetes mellitus. 3. History of prostate cancer. 4. Chronic anemia. 5. Hypertension. 6. Severe dementia. 7. History of sepsis with pseudomonas, on last day of treatment with cefepime. PLAN: 1. Vital signs q.4 hours. 2. Activity: As tolerated. 3. Allergies: LISINOPRIL. 4. Hep-Lock. 5. Diet: ADA. 6. Continue jail medication. Patient most likely will be discharged to the IN facility in [place] tomorrow.
[2018-07-12] MEDS ORDERED: Donepezil HCl 10 MG TAB PO SCH (09:00)
[2018-07-12] MEDS ORDERED: Finasteride 5 MG TAB PO SCH (09:00)
[2018-07-12] MEDS ORDERED: Bicalutamide 50 MG TAB PO SCH (09:00)
[2018-07-12] MEDS ORDERED: Citalopram 20 MG TAB PO SCH (09:00)
[2018-07-12] MEDS ORDERED: Famotidine 20 MG TAB PO SCH (09:00)
--- NOTE | 2018-07-13 13:04 | DIS ---
DATE OF ADMISSION: 07/10/2018 DATE OF DISCHARGE: 07/12/2018 ADMITTING DIAGNOSES: 1. Right hand weakness, rule out cerebrovascular accident. 2. Diabetes mellitus 3. History of prostate cancer. 4. Chronic anemia. 5. Hypertension. 6. Severe dementia. 7. History of sepsis with Pseudomonas. FINAL DIAGNOSES: 1. Right radial nerve palsy. 2. Vascular dementia. 3. Diabetes mellitus. 4. Chronic anemia. 5. Hypertension. 6. History of prostatic cancer. 7. History of sepsis with Pseudomonas. BRIEF SUMMARY OF HOSPITAL COURSE: Mr. Weaver is a 77-year-old, - [place] male admitted because of the right hand weakness He thought there was weakness in the right side, but there was no evidence of any weakness. CT scan and MRI of the brain were unremarkable. Neurology was consulted, and patient was seen by Dr. Benavidez. He felt patient has right radial nerve palsy, suggested a cockup splint for the right wrist until the radial nerve recovers. The patient did well. He has been eating well. Diabetes, hypertension under control. He is being discharged. He will be transferred to the [place] facility. He stated at the time of transfer, he was stable. Vital signs were stable. Lungs were clear. Heart sounds regular. Abdomen soft, nontender. Bowel sounds present. DISCHARGE MEDICATIONS: Include Aricept 10 mg daily, finasteride 5 mg daily, melatonin 3 mg at bedtime, simvastatin 80 mg daily, ranitidine 150 daily, Tylenol p.r.n., ferrous sulfate 45 b.i.d., Casodex 50 mg daily. His cefepime has been discontinued. He completed his course for the Pseudomonas sepsis. Celexa 40 mg daily. The patient did have cockup splint for the right wrist for right radial nerve palsy. [facility]
== END 2018-07-12 07:28 ==
LOC: ERS 19:23 → ERHOLD 22:40 → 2SW 07-11 01:18
PROVIDERS: ADMIT Internal Medicine; ATTEND Internal Medicine
DX: G56.31 Lesion of radial nerve, right upper limb (principal); F01.50 Vascular dementia, unspecified severity, without behavioral disturbance, psychotic disturbance, mood disturbance, and anxiety; E11.9 Type 2 diabetes mellitus without complications; I10 Essential (primary) hypertension; K21.9 Gastro-esophageal reflux disease without esophagitis; A41.9 Sepsis, unspecified organism; N39.0 Urinary tract infection, site not specified; B96.5 Pseudomonas (aeruginosa) (mallei) (pseudomallei) as the cause of diseases classified elsewhere; C61 Malignant neoplasm of prostate; D64.9 Anemia, unspecified; Z79.899 Other long term (current) drug therapy; Z88.8 Allergy status to other drugs, medicaments and biological substances
CPT/HCPCS: 70450; 70551; 80053; 82550; 82553; 82962 ×2; 83735; 84484; 85025; 87086; 93005; 96365; 97139; 99285; G0378 ×2; 36415; 36416; A4216; G8996-GN-CJ; G8997-GN-CJ; J0692; J7050